=== PATIENT | female | born 1945 | race Caucasian/White ===

== ENCOUNTER 2018-03-10 16:40 | Inpatient (IN) | payer MEDICARE, MEDICAID ==
[2018-03-10] MEDS ORDERED: Diatrizoate Meglumine/Diatri 30 mL Sol ONE (16:55)
[2018-03-10 17:22] LABS: % BASOPHILS 0.7 % (0.0-2.0); % LYMPHOCYTES 8.7 % (20.0-50.0); % MONOCYTES 9.6 % (2.0-10.0); BASOPHILE ABSOLUTE 0.1 Th/cumm (0-0.2); EOSINOPHILE ABSOLUTE 0.4 Th/cmm (0.1-0.4); HEMATOCRIT 32.1 % (41.0-60); HEMOGLOBIN 10.5 gm/dL (12-16); LYMPHOCYTE ABSOLUTE 0.9 Th/cmm (1.5-3.0); MEAN CELL VOLUME 95.3 fl (81-100); MEAN CORPUSCULAR HEMOGLOBIN 31.3 pg (27.0-31.0); MEAN CORPUSCULAR HGB CONC 32.8 pg (28.0-36.0); MEAN PLATELET VOLUME 8.4 fl; PLATELET COUNT 252 Th/cmm (150-400); RED BLOOD COUNT 3.37 Mil/cmm (3.80-5.20); RED CELL DISTRIBUTION WIDTH 17.7 % (11.5-20.0); WHITE BLOOD COUNT 10.4 Th/cmm (4.8-10.8)
--- NOTE | 2018-03-10 17:24 | ED Physician Chart ---
ED Chief Complaint/HPI - Patient Information Date Seen:: 03/10/18 Time Seen:: 17:00 Chief Complaint:: FEVER History of Present Illness:: THIS IS A 72 YO DOWNS CHRONICALLY ILL SENT FROM THE [facility] BECAUSE OF FEVER AND G-TUBE DISPLACEMENT. SHE HAS CHRONIC RESPIRATORY FAILURE AND DYSPHAGIA. SHE ALSO HAS HAD MULTIPLE BOUTS OF DVT AND HAS OSTEOPOROSIS. Allergies:: Allergies Allergy/AdvReac Type Severity Reaction Status Date / Time piperacillin [From Zosyn] Allergy Verified 03/10/18 16:59 tazobactam [From Zosyn] Allergy Verified 03/10/18 16:59 Vitals:: Vital Signs - 8 hr 03/10/18 03/10/18 16:50 16:59 Temp 101.2 F HR 99 105 RR 18 BP 131/62 O2 Sat % 100 100 Historian:: Medical Records Review:: Nurse's Note Reviewed, Old Chart Reviewed, Transfer documents Reviewed ED Review of Systems - Review of Systems General/Constitutional: Other (THIS PATIENT IS UNABLE TO GIVE A REVIEW OF SYSTEMS.) Skin: No skin lesions, No rash, No bruising Head: No headache, No light-headedness Eyes: No loss of vision, No pain, No diplopia ENT: No earache, No nasal drainage, No sore throat, No tinnitus Neck: No neck pain, No swelling, No thyromegaly, No stiffness, No mass noted Cardio Vascular: No chest pain, No palpitations, No PND, No orthopnea, No edema Pulmonary: No SOB, No cough, No sputum, No wheezing GI: No nausea, No vomiting, No diarrhea, No pain, No melena, No hematochezia, No constipation, No hematemesis G/U: No dysuria, No frequency, No hematuria Musculoskeletal: No bone or joint pain, No back pain, No muscle pain Endocrine: No polyuria, No polydipsia Psychiatric: No prior psych history, No depression, No anxiety, No suicidal ideation Hematopoietic: No bruising, No lymphadenopathy Allergic/Immuno: No urticaria, No angioedema Neurological: No syncope, No focal symptoms, No weakness, No paresthesia, No headache, No seizure, No dizziness, No confusion, No vertigo ED Past Medical History - Past Medical History Obtainable: Yes Past Medical History: DM, DVT/PE, Dementia, Other (DOWNS SYNDROME. RESPIRATORY FAILURE) Family History: None Social History: Non Smoker, No Alcohol, No Drug Use, Care Facility Surgical History: PEG/GTube, other (TRACHEOSTOMY) Family Medical History - Family Member Mother History Unknown: Yes Ethnicity: Non- Living Status: Unknown ED Physical Exam - Physical Examination General/Constitutional: Awake, Well-developed, well-nourished, Alert, No distress, GCS 15, Non-toxic appearing, Ambulatory Other Gen/Cons comments:: THE PATIENT IS OBTUNDED AND NON-VERBAL WITH OBESITY. Head: Atraumatic Eyes: Lids, conjuctiva normal, PERRL, EOMI Skin: Nl inspection, No rash, No skin lesions, No ecchymosis, Well hydrated, No lymphadenopathy ENMT: External ears, nose nl, Nasal exam nl, Lips, teeth, gums nl Neck: Nontender, Full ROM w/o pain, No JVD, No nuchal rigidity, No bruit, No mass, No stridor Respiratory: Nl effort/Exclusion, Clear to Auscultation, No Wheeze/Rhonchi/Rales Other Respiratory comments:: TRACH IN PLACE AND FUNCTIONING NORMALLY Cardio Vascular: RRR, No murmur, gallop, rubs, NL S1 S2 GI: No tenderness/rebounding/guarding, No organomegaly, No hernia, Normal BS's, Nondistended, No mass/bruits, No McBurney tenderness Other GI comments:: THE GT- SITE HAS CELLULITIS AROUND IT. : No CVA tenderness Extremities: No tenderness or effusion, Full ROM, normal strength in all extremities, No edema, Normal digits & nails Other Extremities comments:: SEVERE MUSCLE WASTING OF ALL FOUR EXTREMITIES Neuro/Psych: Alert/oriented (THIS PATIENT IS NON-RESPONSIVE AND OBTUNDED), DTR' s symmetric, Normal sensory exam, Normal motor strength, Judgement/insight normal, Mood normal, Normal gait, No focal deficits Misc: Normal back, No paraspinal tenderness ED Assessment - Assessment General Assessment: FEVER ABDOMINAL CELLULITIS ED Septic Shock - . Is Septic Shock (SBP<90, OR Lactate>4 mmol\L) present?: No - <6hrs of presentation: Vital Signs: Vital Signs - 8 hr 03/10/18 03/10/18 16:50 16:59 Temp 101.2 F HR 99 105 RR 18 BP 131/62 O2 Sat % 100 100 ED Reassessment (Disposition) - Diagnosis Diagnosis:: fever cellulitis of the abdominal wall respiratory failure - Patient Disposition Discharge/Transfer:: Acute Care w/in this hosp Admitted to:: ICU Admitting Medical Physician:: David Aguilar Condition at Disposition:: Improved
[2018-03-10 17:40] LABS: ALBUMIN 3.7 gm/dL (3.7-5.3); ANION GAP 14.6 (7.0-16.0); BILIRUBIN,TOTAL 0.7 mg/dL (0.3-1.0); CALCIUM SERUM 10.2 mg/dL (8.6-10.3); CARBON DIOXIDE 28.2 mEq/L (21.0-31.0); CREATININE - SERUM 1.4 mg/dL (0.6-1.2); GFR AFRICAN-AMERICAN 47.8 ml/min (>90); GFR NON AFRICAN-AMERICAN 39.5 ml/min; POTASSIUM SERUM 4.8 mEq/L (3.5-5.1); TOTAL PROTEIN,SERUM 7.6 gm/dL (6.0-8.3)
[2018-03-10 21:07] VITALS: BP 130/44
[2018-03-10] MEDS: Albuterol/Ipratropium Neb 3 ML AERS HHN SCH (22:46)
[2018-03-10] MEDS ORDERED: Levofloxacin 500mg/100mL 500 MG/100 ML BAG IV ONE ×2 (23:00→23:01)
[2018-03-11] MEDS: INSULIN ASPART SLIDING SCALE 100 UNITS/ML UNIT SUBQ SCH ×4 (00:59→18:13)
[2018-03-11] MEDS: Albuterol/Ipratropium Neb 3 ML AERS HHN SCH ×6 (02:54→22:57)
[2018-03-11] MEDS ORDERED: Pneumococcal Vaccine 0.5 mL Vial IM ONE (04:44)
[2018-03-11] MEDS ORDERED: Influenza Vaccine (65 yr & older) 0.5 ml Syr IM ONE (04:44)
[2018-03-11 05:27] LABS: % BASOPHILS 0.7 % (0.0-2.0); % EOSINOPHILS 5.1 % (0.0-5.0); % LYMPHOCYTES 12.6 % (20.0-50.0); % MONOCYTES 10.9 % (2.0-10.0); % NEUTROPHILS 70.7 % (40.0-80.0); BASOPHILE ABSOLUTE 0.1 Th/cumm (0-0.2); EOSINOPHILE ABSOLUTE 0.4 Th/cmm (0.1-0.4); HEMATOCRIT 32.4 % (41.0-60); HEMOGLOBIN 10.7 gm/dL (12-16); LYMPHOCYTE ABSOLUTE 0.9 Th/cmm (1.5-3.0); MEAN CELL VOLUME 96.2 fl (81-100); MEAN CORPUSCULAR HEMOGLOBIN 31.8 pg (27.0-31.0); MEAN PLATELET VOLUME 8.9 fl; MONOCYTE ABSOLUTE 0.8 Th/cmm (0.3-1.0); NEUTROPHILE ABSOLUTE 5.1 Th/cmm (1.8-8.0); PLATELET COUNT 229 Th/cmm (150-400); RED BLOOD COUNT 3.37 Mil/cmm (3.80-5.20); RED CELL DISTRIBUTION WIDTH 18.1 % (11.5-20.0)
[2018-03-11 05:34] LABS: WHITE BLOOD COUNT 7.3 Th/cmm (4.8-10.8)
[2018-03-11 05:52] LABS: ANION GAP 15.6 (7.0-16.0); CALCIUM SERUM 9.8 mg/dL (8.6-10.3); CARBON DIOXIDE 25.1 mEq/L (21.0-31.0); CREATININE - SERUM 1.3 mg/dL (0.6-1.2); GFR AFRICAN-AMERICAN 52.1 ml/min (>90); POTASSIUM SERUM 4.7 mEq/L (3.5-5.1)
--- NOTE | 2018-03-11 09:39 | Diagnostic Imaging Report ---
Exam: Gastrostomy tube placement. Findings: Examination of the abdomen with injection of contrast material gastrostomy tube was performed. The study demonstrates the tip of the gastrostomy tube in the stomach with normal opacification of the stomach. Small amount of extravasation of contrast material is noted. IMPRESSION gastrostomy tube in the stomach, small amount of contrast extravasation. Clinical correlation recommended.
[2018-03-11] MEDS ORDERED: VTE Chemical Prophylaxis Screen/ICU transfer MC PRN (15:58)
[2018-03-11] MEDS ORDERED: Ipratropium Neb 0.5 mg/2.5 mL UD HHN PRN (19:07)
[2018-03-11] MEDS ORDERED: Albuterol Nebulizer 2.5mg/3mL HHN PRN (19:07)
[2018-03-11] MEDS ORDERED: Hydrocodone/APAP 5mg/325mg Tab GT PRN (19:07)
[2018-03-11] MEDS ORDERED: D5-0.45NS 1,000 ML IV SCH (19:15)
--- NOTE | 2018-03-11 19:27 | Consultation ---
DATE OF CONSULTATION: 03/11/2018 TIME OF CONSULTATION: 6:49 p.m. HISTORY OF PRESENT ILLNESS: The patient is a 72-year-old down syndrome patient, chronic respiratory failure with trach and dysphagia. She has a G-tube displacement. 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 The patient is overweight. The patient has multiple bouts of DVT, and osteoporosis. The patient is unable to give history. PHYSICAL EXAMINATION: GENERAL: 73 kilograms. BMI 36.5. She is afebrile. She is encephalopathic. She is down syndrome, trached on the vent. CHEST: Clear to auscultation bilaterally. CARDIOVASCULAR: Regular rate. ABDOMEN: Protuberant, but soft. 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 There is a mild cellulitis around the G-tube and the gastrocutaneous fistula site. NEUROVASCULAR AND EXTREMITIES: Otherwise normal. The patient has a Randall catheter. The patient was on tube feeds, but have been stopped. The patient have regular bowel movements. LABORATORY DATA: White blood cell count 7.3, today H and H is 10.7, 32.4, platelet count 229. Sodium is 135, BUN and creatinine 35 and 1.3. The patient had an upper GI series done, which showed gastrostomy tube in the stomach. Small amount of contrast extravasation. Clinical correlation recommended. MEDICATIONS: The patient is on albuterol, insulin, Levaquin, and vancomycin. IMPRESSION AND PLAN: A 72-year-old female with Down syndrome, respiratory failure, status post trach. The patient has a G-tube in the left upper quadrant with the balloon. Reportedly, in the stomach there is some extravasation of contrast from contrast study, probably from a gastrocutaneous tissue. There is some cellulitis of the abdominal wall, but no obvious abscess noted. Surgical consultation requested regarding a gastrocutaneous fistula and G-tube site cellulitis. Continue IV antibiotics for now. Hold tube feeds. We will obtain a CT abdomen and pelvis to further evaluate. The patient is probably a poor surgical candidate given her age and medical comorbidities including obesity, respiratory failure, anemia, renal insufficiency. Consideration for suture closure of the old G-tube site or gastrocutaneous fistula, consider EGD to evaluate for a possible gastrocutaneous fistula. [facility]# [id number]
[2018-03-11] MEDS: Levofloxacin 250 mg/50 mL Premix Bag IV SCH (20:58)
--- NOTE | 2018-03-11 22:17 | History & Physical ---
ADMIT DATE: 03/10/2018 This patient was seen by me yesterday. HISTORY OF PRESENT ILLNESS: The patient is a 72-year-old female patient. The patient is known to have history of Down syndrome, chronically ill and in senior care. The patient had a fever and came in for a G-tube replacement, found to have respiratory failure, dysphagia, sepsis and also known to have history of osteoporosis, was admitted. PAST MEDICAL HISTORY: Difficult to obtain history from the patient. The patient has history of diabetes, DVT, PE, dementia, Down syndrome, respiratory failure. PHYSICAL EXAMINATION: HEAD: Normal. ENT: Normal. LUNGS: Trach in place. CARDIOVASCULAR SYSTEM: S1, S2 heard. ABDOMEN: Soft. G-tube site cellulitis was found. CENTRAL NERVOUS SYSTEM: Decreased sensorium. DIAGNOSES: Gastric tube cellulitis, sepsis, fever, respiratory failure, status post trach, status post percutaneous endoscopic gastrostomy, history of deep vein thrombosis, history of pulmonary embolism in the past, dementia and Down syndrome. PLAN: The patient is being admitted. I will go ahead and call Pulmonary doctor as well as well as Dr. Cali Prabhakar as well as Dr. Ryan Prabhakar for ID consult and I will follow the patient. JOB# [id number]
--- NOTE | 2018-03-11 23:15 | Consultation ---
DATE OF CONSULTATION: 03/11/[address] Aguilar for this consultation. HISTORY OF PRESENT ILLNESS: This is a 72-year-old female with history of Down syndrome, chronic respiratory failure, ventilator dependent, G-tube feeding, presented with fever, G-tube is in place with possible cellulitis. The patient has a history of DVT, osteoporosis, and dysphagia. SOCIAL HISTORY: [facility] resident. REVIEW OF SYSTEMS: Unable to obtain because of the patient's condition. PHYSICAL EXAMINATION: GENERAL: The patient is arousable, not in any acute distress, not communicative. VITAL SIGNS: Temperature is 97.5, pulse 92, respirations 16, blood pressure 148/51, saturation is 100 percent. HEENT: Atraumatic, normocephalic. Pupils are reactive to light and accommodation. Ears, nose and throat normal. NECK: Supple. No JVD. CHEST: There are good breath sounds. Few rhonchi. HEART: Regular rate and rhythm. ABDOMEN: Soft. EXTREMITIES: No edema. LABORATORY DATA: WBC 7.3, hemoglobin 10.7, hematocrit 32.4, platelets 229. Sodium 135, potassium 4.7, BUN is 35, creatinine 1.3. IMPRESSION: This is a 72-year-old female with, 1. pneumonia, copious amount of secretions according to nursing staff. 2. History of deep venous thrombosis. not getting any anticoagulation at this time. PLAN: 1. Ventilator support. 2. Chest x-ray. 3. Sputum culture. 4. Nebulizer treatment. We will follow the patient with you. Thank you very much for this consultation. JOB# [id number] MTDD
[2018-03-12] MEDS ORDERED: Ipratropium Neb 0.5 mg/2.5 mL UD HHN SCH
[2018-03-12] MEDS: INSULIN ASPART SLIDING SCALE 100 UNITS/ML UNIT SUBQ SCH ×5 (00:25→23:58)
--- NOTE | 2018-03-12 01:04 | Consultation ---
DATE OF CONSULTATION: 03/11/2018 REQUESTING PHYSICIAN: Dr. Watts. REASON FOR CONSULTATION: G-tube displacement. HISTORY OF PRESENT ILLNESS: Thank you for asking me to see this patient in consultation. This is a 72-year-old female with history of Down syndrome, chronically ill and in the custodial. The patient had a fever and came in for G-tube replacement, but was found to have respiratory failure, dysphagia, and sepsis. She is currently in the ICU, appearing very ill. She has a G-tube that looks infected at the site and there is also an adjacent what looks like either a gastrocutaneous fistula that is leaking tube feed content. At the time of my evaluation, the patient was still on tube feeds. We promptly held this and surgical consultation was also requested. PAST MEDICAL HISTORY: Difficult to obtain from the patient; however, has a history of diabetes, DVT, PE, dementia, Down syndrome, respiratory failure. SOCIAL HISTORY: Unobtainable. FAMILY HISTORY: Noncontributory for GI disease. REVIEW OF SYSTEMS: Unobtainable. PHYSICAL EXAMINATION: VITAL SIGNS: Temperature 97.5, pulse of 91, respiratory rate of 18, blood pressure is 122/36. GENERAL: She is acutely ill appearing. HEENT: Normocephalic, atraumatic. PERRL positive. LUNGS: Rhonchorous bilaterally. ABDOMEN: Distended. There is an intact G-tube with some surrounding cellulitis and a leaking gastrocutaneous fistula adjacent to this area. EXTREMITIES: Show 2+ pitting edema. PSYCHIATRIC: Unable to assess. NEUROLOGIC: Unable to assess. LABORATORY DATA: White count of 7.3, hemoglobin of 7.7. Sodium 135, glucose of 154. Sodium 135, potassium 4.7, BUN is 35, creatinine is 1.3. IMAGING STUDIES: She had an upper GI study series done, which showed gastrostomy tube in the stomach. Small amount of contrast extravasation likely from gastrocutaneous fistula. IMPRESSION: A 72-year-old female with history of G-tube dependency, Down syndrome, respiratory failure, who presents with fevers and sepsis. 1. Abdominal wall cellulitis. 2. Gastrocutaneous fistula with leaking of fluid. 3. Concern for ileus. 4. Down syndrome. There is surrounding abdominal cellulitis around the G-tube as well as a spontaneous versus slowly forming gastrocutaneous fistula adjacent to this G-tube site. Concern is also the patient has an ileus or bowel obstruction distal to the secretive prompted opening of this fistula and/or the cellulitis with the way her abdomen exam is. RECOMMENDATIONS: 1. Obtain CT scan. 2. Surgery consult. 3. Hold tube feeds right now indefinitely and likely place the patient on TPN until the G-tube site is healed and then can possibly replace the G-tube through the already formed tract. If the patient's cellulitis does not improve; however, this may need to be replaced either endoscopically or other manner or surgically. 4. Followup on surgical recommendation, may require fistulectomy or suture repair depending on surgical versus conservative management and watching this close spontaneously. We will continue to follow alongside with you. Thank you for this consultation. JOB# [id number]
[2018-03-12] MEDS: Albuterol/Ipratropium Neb 3 ML AERS HHN SCH ×5 (02:35→22:49)
[2018-03-12 08:07] LABS: % BASOPHILS 0.9 % (0.0-2.0); % EOSINOPHILS 4.8 % (0.0-5.0); % LYMPHOCYTES 17.2 % (20.0-50.0); % MONOCYTES 13.4 % (2.0-10.0); % NEUTROPHILS 63.7 % (40.0-80.0); EOSINOPHILE ABSOLUTE 0.2 Th/cmm (0.1-0.4); HEMATOCRIT 29.9 % (41.0-60); HEMOGLOBIN 9.7 gm/dL (12-16); LYMPHOCYTE ABSOLUTE 0.9 Th/cmm (1.5-3.0); MEAN CELL VOLUME 96.6 fl (81-100); MEAN CORPUSCULAR HEMOGLOBIN 31.4 pg (27.0-31.0); MEAN CORPUSCULAR HGB CONC 32.5 pg (28.0-36.0); MEAN PLATELET VOLUME 7.8 fl; MONOCYTE ABSOLUTE 0.7 Th/cmm (0.3-1.0); NEUTROPHILE ABSOLUTE 3.4 Th/cmm (1.8-8.0); PLATELET COUNT 259 Th/cmm (150-400); RED CELL DISTRIBUTION WIDTH 17.9 % (11.5-20.0); WHITE BLOOD COUNT 5.2 Th/cmm (4.8-10.8)
[2018-03-12 08:21] LABS: ANION GAP 13.1 (7.0-16.0); CALCIUM SERUM 9.4 mg/dL (8.6-10.3); CARBON DIOXIDE 27.8 mEq/L (21.0-31.0); CREATININE - SERUM 1.2 mg/dL (0.6-1.2); GFR AFRICAN-AMERICAN 57.1 ml/min (>90); GFR NON AFRICAN-AMERICAN 47.2 ml/min; POTASSIUM SERUM 3.9 mEq/L (3.5-5.1)
[2018-03-12] MEDS ORDERED: Albuterol Nebulizer 2.5mg/3mL HHN PRN ×2 (08:35→08:45)
--- NOTE | 2018-03-12 08:49 | Diagnostic Imaging Report ---
CT abdomen without IV contrast History: Cellulitis of abdominal wall Comparison: Upper GI exam on 03/10/2019 Technique: Axial images were obtained from the lung bases to the bowel iliac crest without IV contrast. Reconstructions were made. Total DLP 458, CTD I 17.5 Findings: Bibasal infiltrates and atelectatic changes are noted. Assessment of the solid organs is limited due to lack of IV contrast. There is mild hepatomegaly. No focal lesions. Gallstones are noted. No focal splenic lesions. Pancreatic gland atrophy is noted. No focal adrenal lesions. An IVC filter is noted L2/L3 level. There is diffuse subcutaneous edema. There is also inflammatory changes and edema seen along the left anterior abdominal wall along the G-tube tract site. No discrete fluid collection on this noncontrast exam. There are advanced compression fractures of T12 and L1 with 4 mm retropulsion at T12 and 5 mm retropulsion at L1 causing spinal canal narrowing. There is a vertical fracture line through L1. There is mild compression fracture of T11 with no retropulsion. Osteopenia is noted. IMPRESSION: G-tube in the stomach. Edema is seen with mild inflammatory changes along the subcutaneous tissues along the G-tube tract site. No drainable fluid collection identified. Additional generalized subcutaneous abdominal wall edema which may be due to cellulitis. Gallstones IVC filter. Bibasal infiltrate/pneumonia. There is advanced compression fracture of T12 with 4 mm retropulsion. There is advanced compression fracture of L1 with 5 mm retropulsion. A vertical fracture line is also seen through L1. There is associated spinal canal narrowing. Additional mild compression fracture of T11 without retropulsion. Mild hepatomegaly.
[2018-03-12] MEDS: Lactobacillus Rhamnosus GG 15 Billion CFU CAP.SPRINK GT SCH (08:55)
[2018-03-12] MEDS: Levetiracetam 500 mg/5mL 5mL UDSyr *for ORAL USE ONLY GT SCH ×2 (08:55→21:39)
[2018-03-12] MEDS ORDERED: Pantoprazole 40 mg/Packet GT SCH (09:00)
[2018-03-12] MEDS: Docusate Sodium 100 mg/10 mL UD GT SCH ×2 (09:00→17:00)
[2018-03-12] MEDS ORDERED: Levothyroxine 0.112 Mg Tab GT SCH (09:00)
[2018-03-12] MEDS: Budesonide 0.5 Mg/2 mL Ud HHN SCH ×2 (09:14→18:40)
--- NOTE | 2018-03-12 10:05 | Diagnostic Imaging Report ---
Portable chest x-ray HISTORY: Shortness of breath The heart appears somewhat enlarged. There are hazy diffuse bilateral pulmonary infiltrates. Changes may be associated pulmonary edema related to congestive heart failure. Clinical correlation is needed. Tracheostomy noted. IMPRESSION: 1. Cardiomegaly along with hazy bilateral diffuse infiltrates. Findings may be associated with pulmonary edema and congestive heart failure. Clinical correlation is needed.
[2018-03-12] MEDS: Potassium Chloride 10 mEq ER Tab PO SCH (11:00)
[2018-03-12] MEDS: INSULIN HUMAN ISOPHANE (NPH) 100 UNITS/ML SUBQ SCH ×2 (11:27→16:53)
[2018-03-12] MEDS: Ferrous Sulfate 300 MG/5 ML UDC GT SCH ×2 (13:00→21:39)
[2018-03-12] MEDS ORDERED: Albuterol Nebulizer 2.5mg/3mL HHN SCH ×2 (13:00)
--- NOTE | 2018-03-12 16:24 | Consultation ---
Consult Note - Consult Note Service Date: 03/12/18 Referring Physician: David Aguilar Consult Note: PHYSICIAN Consultation Note: Date of Admission: 03/10/18 Purpose of Consultation: sepsis. abdominal wall cellulitis. Chief Complaint: Patient OTTONIEL HYLTON was admitted to location Intensive Care Unit with FEVER, CELLULITIS OF ABDOMINAL WALL. History of Present Illness: 72 y/F with pmh of VDRF, mental retardation, short stature, dysphagia, G tube placement admitted for malfunctioning G tube with leak. It was associated with erythema of surrounding tissues. ID consult was called for antibiotic management. Antibiotic soto, she was started on Vanco IV and levaquin. Past Medical History: DM, DVT/PE, Dementia, Other (DOWNS SYNDROME. RESPIRATORY FAILURE), Mental retardation. Diagnoses SEPSIS, UNSPECIFIED ORGANISM (03/10/18) RESPIRATORY FAILURE, UNSP, UNSP W HYPOXIA OR HYPERCAPNIA (03/10/18) FISTULA OF STOMACH AND DUODENUM (03/10/18) GASTROSTOMY MALFUNCTION (03/10/18) CELLULITIS OF ABDOMINAL WALL (03/10/18) WEAKNESS (03/10/18) Allergies Allergy/AdvReac Type Severity Reaction Status Date / Time piperacillin [From Zosyn] Allergy Verified 03/10/18 16:59 tazobactam [From Zosyn] Allergy Verified 03/10/18 16:59 Vital Signs Temp 98.3 F 03/12/18 12:00 Pulse 86 03/12/18 15:05 Resp 14 03/12/18 14:00 BP 132/31 03/12/18 14:00 Pulse Ox 100 03/12/18 15:05 Intake & Output 03/11/18 03/12/18 03/12/18 18:59 06:59 18:59 Intake Total 460 250 Output Total 1100 Balance 460 -1100 250 Weight (lbs) 73.799 kg 71.395 kg Intake: Intake, IV Amount 250 250 Vancomycin HCl 0.75 gm In 250 250 Sodium Chloride 0.9% 250 ml @ 165 mls/hr IV Q24H [facility] Rx#:[id number] Oral 0 Tube Feeding 180 Other 30 Output: Urine 1100 Other: # Bowel Movements 0 Stool Characteristics Soft Formed Brown Green Weight Source Bedscale Bedscale Laboratory Results - last 24 hr 03/11/18 03/12/18 03/12/18 17:25 00:25 06:42 WBC RBC Hgb Hct MCV MCH MCHC Differential RDW Plt Count MPV Neutrophils % Lymphocytes % Monocytes % Eosinophils % Basophils % Sodium Potassium Chloride Carbon Dioxide Anion Gap BUN Creatinine Est GFR ( Amer) Est GFR (Non-Af Amer) BUN/Creatinine Ratio Glucose POC Glucose 247 H 252 H 225 H Calcium Vancomycin Trough 03/12/18 03/12/18 03/12/18 07:50 07:50 07:50 WBC 5.2 RBC 3.10 L Hgb 9.7 L Hct 29.9 L MCV 96.6 MCH 31.4 H MCHC Differential 32.5 RDW 17.9 Plt Count 259 MPV 7.8 Neutrophils % 63.7 Lymphocytes % 17.2 L Monocytes % 13.4 H Eosinophils % 4.8 Basophils % 0.9 Sodium 139 Potassium 3.9 Chloride 102 Carbon Dioxide 27.8 Anion Gap 13.1 BUN 25 Creatinine 1.2 Est GFR ( Amer) 57.1 Est GFR (Non-Af Amer) 47.2 BUN/Creatinine Ratio 20.8 Glucose 232 H POC Glucose Calcium 9.4 Vancomycin Trough 20.4 H 03/12/18 11:56 WBC RBC Hgb Hct MCV MCH MCHC Differential RDW Plt Count MPV Neutrophils % Lymphocytes % Monocytes % Eosinophils % Basophils % Sodium Potassium Chloride Carbon Dioxide Anion Gap BUN Creatinine Est GFR ( Amer) Est GFR (Non-Af Amer) BUN/Creatinine Ratio Glucose POC Glucose 227 H Calcium Vancomycin Trough Home Medication Medication Instructions Recorded Type Acetaminophen [Tylenol 650 mg GT Q6H PRN 02/09/17 History 650mg/20.3mL Suspension] Ascorbic Acid 500 mg GT DAILY 02/09/17 History Docusate Sodium 100 mg GT Q12H 02/09/17 History Epoetin Teddy [Procrit] 10,000 unit IJ MWF 02/09/17 History Ferrous Sulfate [Ferosul] 330 mg GT Q8HR 02/09/17 History Hydrocodone/APAP 5mg/325mg [Brunswick 1 tab GT Q6H PRN 02/09/17 History 5mg/325mg] Lactobacillus Acidophilus 2 cap GT Q12H 02/09/17 History [Acidophilus Lactobacillus] Levetiracetam [Spritam] 250 mg GT Q12H 02/09/17 History Levothyroxine [Synthroid] 175 mcg GT DAILY 02/09/17 History Lorazepam [Ativan] 0.5 mg GT Q6HR PRN 02/09/17 History Potassium Chloride 10 meq GT DAILY 02/09/17 History Albuterol Nebulizer 2.5mg/3mL 3 mg IH PRN PRN 03/10/18 History [Albuterol Neb UD*] Albuterol Nebulizer 2.5mg/3mL 3 mg IH Q6HR 03/10/18 History [Albuterol Neb UD*] Budesonide [Pulmicort] 0.5 mg IH BID 03/10/18 History Chlorhexidine Gluconate 0.12% 15 ml PO QSHIFT 03/10/18 History [Peridex] Furosemide [Lasix] 20 mg GT DAILY 03/10/18 History Insulin Glulisine [Apidra] 0 unit SQ Q6H 03/10/18 History Insulin NPH Human Isophane 22 unit SQ BID 03/10/18 History [Humulin N] Ipratropium Neb 0.5 mg/2.5 mL 0.5 mg HHN PRN PRN 03/10/18 History [Atrovent Neb 0.5MG/2.5ML] Ipratropium Neb 0.5 mg/2.5 mL 0.5 mg HHN Q6HR 03/10/18 History [Atrovent Neb 0.5MG/2.5ML] Lansoprazole [Prevacid] 30 mg GT DAILY 03/10/18 History Current Medications Generic Name Dose Route Start Last Admin Trade Name Freq PRN Reason Stop Dose Admin Acetaminophen 650 mg 03/11/18 19:07 Tylenol 650mg/20.3ml Suspension GT 05/10/18 19:06 Q6H PRN Pain or Fever >101 Acetaminophen/Hydrocodone Bitart 1 tab 03/11/18 19:07 [place] 5mg/325mg GT 05/10/18 19:06 Q6H PRN Pain (Moderate) Albuterol Sulfate 2.5 mg 03/12/18 08:45 Albuterol 2.5mg/3ml Neb Ud HHN 05/11/18 08:34 PRN PRN WHEEZING Albuterol/Ipratropium 3 ml 03/10/18 23:00 03/12/18 15:05 Duoneb Neb HHN 05/09/18 22:59 3 ml Q4HRT [facility] Administration Protocol Ascorbic Acid 500 mg 03/12/18 09:00 03/12/18 08:54 Vitamin C GT 05/11/18 08:59 Not Given DAILY [facility] Budesonide 0.5 mg 03/12/18 09:00 03/12/18 09:14 Pulmicort HHN 05/11/18 08:59 0.5 mg BID [facility] Administration Docusate Sodium 100 mg 03/12/18 08:00 03/12/18 09:00 Colace GT 05/11/18 07:59 Not Given Q12HR@0600,1800 [facility] Epoetin Teddy 10,000 units 03/12/18 16:00 Epogen SUBQ 05/11/18 15:59 MWF@1600 [facility] Ferrous Sulfate 300 mg 03/12/18 13:00 03/12/18 13:00 Iron GT 05/11/18 12:59 Not Given Q8HR [facility] Furosemide 20 mg 03/12/18 09:00 03/12/18 08:55 Lasix GT 05/11/18 08:59 Not Given DAILY [facility] Furosemide 40 mg 03/12/18 17:00 Lasix IVP 03/14/18 17:00 DAILY [facility] Heparin Sodium (Porcine) 5,000 units 03/11/18 21:00 03/12/18 09:04 Heparin SUBQ 05/10/18 20:59 5,000 units Q12HR [facility] Administration Levofloxacin 250 mg in 50 mls @ 50 mls/hr 03/11/18 21:00 03/11/18 20:58 Levaquin Pb IV 05/10/18 20:59 50 mls/hr DAILY@2100 [facility] Administration Vancomycin HCl 0.75 gm/ Sodium 250 mls @ 165 mls/hr 03/11/18 09:00 03/12/18 10:30 Chloride IV 05/10/18 08:59 Infused Q24H [facility] Infusion Dextrose/Sodium Chloride 1,000 mls @ 50 mls/hr 03/12/18 13:45 D5-0.45ns IV 05/11/18 14:00 .Q20H [facility] Insulin Aspart 0 units 03/11/18 00:00 03/12/18 12:40 Novolog Insulin Sliding Scale SUBQ 05/10/18 00:00 4 units Q6HR [facility] Administration Protocol Insulin Human NPH 22 units 03/12/18 09:00 03/12/18 11:27 Novolin N SUBQ 05/11/18 08:59 Not Given BID [facility] Protocol Ipratropium Benson 0.5 mg 03/11/18 19:07 03/11/18 20:47 Atrovent Neb 0.5mg/2.5ml HHN 05/10/18 19:06 0.5 mg PRN PRN Administration Wheezing Lactobacillus Rhamnosus 1 each 03/12/18 09:00 03/12/18 08:55 Culturelle 15b GT 05/11/18 08:59 Not Given DAILY [facility] Levetiracetam 250 mg 03/12/18 09:00 03/12/18 08:55 Keppra GT 05/11/18 08:59 Not Given Q12H [facility] Levothyroxine Sodium 0.075 mg/ 0.175 mg 03/12/18 09:00 03/12/18 08:56 Levothyroxine Sodium 0.1 mg PO 05/11/18 08:59 Not Given DAILY [facility] Lorazepam 0.5 mg 03/11/18 19:07 Ativan GT 05/10/18 19:06 Q6HR PRN Anxiety Protocol Miscellaneous 1 ea 03/10/18 21:53 Vancomycin Iv Per Pharmacy 05/09/18 21:52 PRN PRN PROTOCOL Miscellaneous 1 ea 03/11/18 15:58 Vte Chemical Prophylaxis Screen/Icu Transfer 05/10/18 15:57 PRN PRN PROTOCOL Pantoprazole Sodium 40 mg 03/12/18 09:00 03/12/18 08:54 Protonix IVP 05/11/18 08:59 40 mg DAILY [facility] Administration Pantoprazole Sodium 40 mg 03/12/18 09:00 03/12/18 08:56 Protonix GT 05/11/18 08:59 Not Given DAILY [facility] Potassium Chloride 10 meq 03/12/18 11:00 03/12/18 11:00 Klor-Con PO 05/11/18 10:59 Not Given DAILY [facility] Review of Systems: A 12 point ROS was reviewed with the pertinent positive and negatives noted in the HPI. pateint is unable to give any history. Social History Smoking Status Never smoker Drug Use No Alcohol Use No Family Medical History Unknown Physical Exam: General: On the ventilator alert and awake, s/p trach. short stature. HEENT: HEAD: NC NT. ORal cavity moist, pink tongue. Eyes: pallor present. Neck: trach site is clear/ Cardio: S1 and S2 WNL> Respiratory: Vesicular breath sounds Abdominal: Soft NT ND. Gtube site is leaking and there is surropunding erythema. Genital/Urinary: Extremities: NCCE Neurological: Alert and awake. Assessment: 1. Abdominal wall cellulitis and G tube malfunction 2. Down's Syndrome. 3. VDRF. 4. Mental retardation. Plan: Continue vancO and levaquin, wound care. GI consult on the case. Dr Jeff Magallon for involving me in taking care of this patient. Signed, Ryan Prabhakar M.D. 03/12/[id number]
[2018-03-12 17:21] LABS: pH 7.45 (7.35-7.45)
[2018-03-12 17:22] LABS: ALLEN TEST Positive
[2018-03-12] MEDS: Epoetin Alfa 20000 Units/mL Vial SUBQ SCH (17:33)
[2018-03-12] MEDS: D5-0.45NS 1,000 ML IV SCH (17:41)
--- NOTE | 2018-03-12 18:17 | GI Progress Note ---
Subjective - Review of Systems Service Date: 03/12/18 Events since last encounter: No events; appreciate surgical input Objective - Results Result Diagrams: 03/12/18 07:50 03/12/18 07:50 Recent Labs: Laboratory Last Values WBC 5.2 Th/cmm (4.8-10.8) 03/12/18 07:50 RBC 3.10 Mil/cmm (3.80-5.20) L 03/12/18 07:50 Hgb 9.7 gm/dL (12-16) L 03/12/18 07:50 Hct 29.9 % (41.0-60) L 03/12/18 07:50 MCV 96.6 fl (81-100) 03/12/18 07:50 MCH 31.4 pg (27.0-31.0) H 03/12/18 07:50 MCHC Differential 32.5 pg (28.0-36.0) 03/12/18 07:50 RDW 17.9 % (11.5-20.0) 03/12/18 07:50 Plt Count 259 Th/cmm (150-400) 03/12/18 07:50 MPV 7.8 fl 03/12/18 07:50 Neutrophils % 63.7 % (40.0-80.0) 03/12/18 07:50 Lymphocytes % 17.2 % (20.0-50.0) L 03/12/18 07:50 Monocytes % 13.4 % (2.0-10.0) H 03/12/18 07:50 Eosinophils % 4.8 % (0.0-5.0) 03/12/18 07:50 Basophils % 0.9 % (0.0-2.0) 03/12/18 07:50 Specimen Source Arterial 03/12/18 17:02 Sample Site Right Radial 03/12/18 17:02 pH 7.45 (7.35-7.45) 03/12/18 17:02 pCO2 46.0 mmHg (35.0-45.0) H 03/12/18 17:02 pO2 483.0 mmHg (80.0-100.0) H 03/12/18 17:02 HCO3 30.5 mEq/L (20.0-26.0) H 03/12/18 17:02 Base Excess 7.0 mEq/L (-3.0-3.0) H 03/12/18 17:02 O2 Saturation 100.0 % (92.0-100.0) 03/12/18 17:02 Cristofer Test Positive 03/12/18 17:02 Vent Rate 14 03/12/18 17:02 Inspired O2 100 03/12/18 17:02 Tidal Volume 400 03/12/18 17:02 PEEP 7 03/12/18 17:02 Pressure (ins/psv/peep) NA 03/12/18 17:02 Critical Value SH 03/12/18 17:02 Sodium 139 mEq/L (136-145) 03/12/18 07:50 Potassium 3.9 mEq/L (3.5-5.1) 03/12/18 07:50 Chloride 102 mEq/L (98-107) 03/12/18 07:50 Carbon Dioxide 27.8 mEq/L (21.0-31.0) 03/12/18 07:50 Anion Gap 13.1 (7.0-16.0) 03/12/18 07:50 BUN 25 mg/dL (7-25) 03/12/18 07:50 Creatinine 1.2 mg/dL (0.6-1.2) 03/12/18 07:50 Est GFR ( Amer) 57.1 ml/min (>90) 03/12/18 07:50 Est GFR (Non-Af Amer) 47.2 ml/min 03/12/18 07:50 BUN/Creatinine Ratio 20.8 03/12/18 07:50 Glucose 232 mg/dL (70-105) H 03/12/18 07:50 POC Glucose 170 MG/DL (70 - 105) H 03/12/18 16:36 Whole Bld Lactic Acid 1.36 mmol/L (0.60-1.99) 03/10/18 17:15 Calcium 9.4 mg/dL (8.6-10.3) 03/12/18 07:50 Total Bilirubin 0.7 mg/dL (0.3-1.0) 03/10/18 17:15 AST 19 U/L (13-39) 03/10/18 17:15 ALT 11 U/L (7-52) 03/10/18 17:15 Alkaline Phosphatase 105 U/L (34-104) H 03/10/18 17:15 Total Protein 7.6 gm/dL (6.0-8.3) 03/10/18 17:15 Albumin 3.7 gm/dL (3.7-5.3) 03/10/18 17:15 Globulin 3.9 gm/dL 03/10/18 17:15 Albumin/Globulin Ratio 1.0 (1.0-1.8) 03/10/18 17:15 Vancomycin Trough 20.4 ug/mL (5-10) H 03/12/18 07:50 - Physical Exam Vitals and I&O: Vital Signs Temp 98.3 F 03/12/18 12:00 Pulse 76 03/12/18 17:26 Resp 14 03/12/18 14:00 BP 106/45 03/12/18 17:41 Pulse Ox 100 03/12/18 17:26 Intake & Output 03/11/18 03/12/18 03/12/18 18:59 06:59 18:59 Intake Total 460 250 Output Total 1100 Balance 460 -1100 250 Weight (lbs) 73.799 kg 71.395 kg Intake: Intake, IV Amount 250 250 Vancomycin HCl 0.75 gm In 250 250 Sodium Chloride 0.9% 250 ml @ 165 mls/hr IV Q24H [facility] Rx#:[id number] Oral 0 Tube Feeding 180 Other 30 Output: Urine 1100 Other: # Bowel Movements 0 Stool Characteristics Soft Formed Brown Green Weight Source Bedscale Bedscale Active Medications: Current Medications Acetaminophen (Tylenol 650mg/20.3ml Suspension) 650 mg GT Q6H PRN PRN Reason: Pain or Fever >101 Stop: 05/10/18 19:06 Acetaminophen/Hydrocodone Bitart (Severy 5mg/325mg) 1 tab GT Q6H PRN PRN Reason: Pain (Moderate) Stop: 05/10/18 19:06 Albuterol Sulfate (Albuterol 2.5mg/3ml Neb Ud) 2.5 mg HHN PRN PRN PRN Reason: WHEEZING Stop: 05/11/18 08:34 Albuterol/Ipratropium (Duoneb Neb) 3 ml HHN Q4HRT [facility]; Protocol Stop: 05/09/18 22:59 Last Admin: 03/12/18 15:05 Dose: 3 ml Ascorbic Acid (Vitamin C) 500 mg GT DAILY [facility] Stop: 05/11/18 08:59 Last Admin: 03/12/18 08:54 Dose: Not Given Budesonide (Pulmicort) 0.5 mg HHN BID [facility] Stop: 05/11/18 08:59 Last Admin: 03/12/18 09:14 Dose: 0.5 mg Docusate Sodium (Colace) 100 mg GT Q12HR@0600,1800 [facility] Stop: 05/11/18 07:59 Last Admin: 03/12/18 09:00 Dose: Not Given Epoetin Teddy (Epogen) 10,000 units SUBQ MWF@1600 [facility] Stop: 05/11/18 15:59 Last Admin: 03/12/18 17:33 Dose: 10,000 units Ferrous Sulfate (Iron) 300 mg GT Q8HR [facility] Stop: 05/11/18 12:59 Last Admin: 03/12/18 13:00 Dose: Not Given Furosemide (Lasix) 20 mg GT DAILY [facility] Stop: 05/11/18 08:59 Last Admin: 03/12/18 08:55 Dose: Not Given Furosemide (Lasix) 40 mg IVP DAILY [facility] Stop: 03/14/18 17:00 Last Admin: 03/12/18 17:41 Dose: 40 mg Heparin Sodium (Porcine) (Heparin) 5,000 units SUBQ Q12HR [facility] Stop: 05/10/18 20:59 Last Admin: 03/12/18 09:04 Dose: 5,000 units Levofloxacin (Levaquin Pb) 250 mg in 50 mls @ 50 mls/hr IV DAILY@2100 [facility] Stop: 05/10/18 20:59 Last Admin: 03/11/18 20:58 Dose: 50 mls/hr Vancomycin HCl 0.75 gm/ Sodium (Chloride) 250 mls @ 165 mls/hr IV Q24H [facility] Stop: 05/10/18 08:59 Last Infusion: 03/12/18 10:30 Dose: Infused Dextrose/Sodium Chloride (D5-0.45ns) 1,000 mls @ 50 mls/hr IV .Q20H [facility] Stop: 05/11/18 14:00 Last Admin: 03/12/18 17:41 Dose: 50 mls/hr Insulin Aspart (Novolog Insulin Sliding Scale) 0 units SUBQ Q6HR [facility]; Protocol Stop: 05/10/18 00:00 Last Admin: 03/12/18 12:40 Dose: 4 units Insulin Human NPH (Novolin N) 22 units SUBQ BID [facility]; Protocol Stop: 05/11/18 08:59 Last Admin: 03/12/18 16:53 Dose: Not Given Ipratropium Waddy (Atrovent Neb 0.5mg/2.5ml) 0.5 mg HHN PRN PRN PRN Reason: Wheezing Stop: 05/10/18 19:06 Last Admin: 03/11/18 20:47 Dose: 0.5 mg Lactobacillus Rhamnosus (Culturelle 15b) 1 each GT DAILY [facility] Stop: 05/11/18 08:59 Last Admin: 03/12/18 08:55 Dose: Not Given Levetiracetam (Keppra) 250 mg GT Q12H [facility] Stop: 05/11/18 08:59 Last Admin: 03/12/18 08:55 Dose: Not Given Levothyroxine Sodium 0.075 mg/ (Levothyroxine Sodium 0.1 mg) 0.175 mg PO DAILY [facility] Stop: 05/11/18 08:59 Last Admin: 03/12/18 08:56 Dose: Not Given Lorazepam (Ativan) 0.5 mg GT Q6HR PRN; Protocol PRN Reason: Anxiety Stop: 05/10/18 19:06 Miscellaneous (Vancomycin Iv Per Pharmacy) 1 [facility] PRN PRN PRN Reason: PROTOCOL Stop: 05/09/18 21:52 Miscellaneous (Vte Chemical Prophylaxis Screen/Icu Transfer) 1 [facility] PRN PRN PRN Reason: PROTOCOL Stop: 05/10/18 15:57 Pantoprazole Sodium (Protonix) 40 mg IVP DAILY [facility] Stop: 05/11/18 08:59 Last Admin: 03/12/18 08:54 Dose: 40 mg Pantoprazole Sodium (Protonix) 40 mg GT DAILY [facility] Stop: 05/11/18 08:59 Last Admin: 03/12/18 08:56 Dose: Not Given Potassium Chloride (Klor-Con) 10 meq PO DAILY [facility] Stop: 05/11/18 10:59 Last Admin: 03/12/18 11:00 Dose: Not Given HEENT: Atraumatic, PERRLA, EOMI Neck: Supple Cardiovascular: Regular rate, Normal S1 Abdomen: Bowel sounds, Soft - Procedures Procedures: Procedures Procedure Code Date EXCISION OF STOMACH, ENDO, DIAGN [id number] 02/09/17 INSERTION OF INFUSION DEV INTO SUP VENA CAVA, PERC APPROACH [id number] 02/09/17 RESPIRATORY VENTILATION, 24-96 CONSECUTIVE HOURS [id number] 03/10/18 TRANSFUSE NONAUT RED BLOOD CELLS IN PERIPH VEIN, PERC 09100A8 02/09/17 Assessment/Plan - Assessment Assessment: 1. G tube site cellulitis 2. Gastrocutaneous fistula -Recommend bowel rest; TPN, alow site to heal and then likely change G tube -f/u surgery recs
[2018-03-12] MEDS: Levofloxacin 250 mg/50 mL Premix Bag IV SCH (21:41)
[2018-03-13] MEDS: Albuterol/Ipratropium Neb 3 ML AERS HHN SCH ×6 (03:19→23:27)
[2018-03-13] MEDS: Ferrous Sulfate 300 MG/5 ML UDC GT SCH ×3 (05:29→21:14)
[2018-03-13] MEDS: Docusate Sodium 100 mg/10 mL UD GT SCH ×2 (05:29→14:00)
[2018-03-13] MEDS: INSULIN ASPART SLIDING SCALE 100 UNITS/ML UNIT SUBQ SCH ×4 (05:49→23:46)
[2018-03-13] MEDS: Budesonide 0.5 Mg/2 mL Ud HHN SCH ×2 (07:24)
[2018-03-13 08:10] LABS: % BASOPHILS 0.3 % (0.0-2.0); % EOSINOPHILS 7.3 % (0.0-5.0); % MONOCYTES 14.1 % (2.0-10.0); % NEUTROPHILS 58.3 % (40.0-80.0); EOSINOPHILE ABSOLUTE 0.3 Th/cmm (0.1-0.4); HEMATOCRIT 26.1 % (41.0-60); HEMOGLOBIN 8.8 gm/dL (12-16); LYMPHOCYTE ABSOLUTE 0.9 Th/cmm (1.5-3.0); MEAN CELL VOLUME 95.4 fl (81-100); MEAN CORPUSCULAR HEMOGLOBIN 32.3 pg (27.0-31.0); MEAN CORPUSCULAR HGB CONC 33.8 pg (28.0-36.0); MEAN PLATELET VOLUME 7.8 fl; MONOCYTE ABSOLUTE 0.6 Th/cmm (0.3-1.0); NEUTROPHILE ABSOLUTE 2.8 Th/cmm (1.8-8.0); PLATELET COUNT 231 Th/cmm (150-400); RED BLOOD COUNT 2.74 Mil/cmm (3.80-5.20); RED CELL DISTRIBUTION WIDTH 17.3 % (11.5-20.0); WHITE BLOOD COUNT 4.6 Th/cmm (4.8-10.8)
[2018-03-13 08:28] LABS: ALB/GLOB RATIO 0.9 (1.0-1.8); ALBUMIN 2.9 gm/dL (3.7-5.3); ALKALINE PHOSPHATASE 68 U/L (34-104); ANION GAP 11.9 (7.0-16.0); BILIRUBIN,TOTAL 0.5 mg/dL (0.3-1.0); BUN - UREA NITROGEN 15 mg/dL (7-25); CALCIUM SERUM 8.9 mg/dL (8.6-10.3); CARBON DIOXIDE 29.5 mEq/L (21.0-31.0); CHLORIDE 101 mEq/L (98-107); CREATININE - SERUM 1.1 mg/dL (0.6-1.2); GFR AFRICAN-AMERICAN > 60.0 ml/min (>90); GFR NON AFRICAN-AMERICAN 52.2 ml/min; GLUCOSE 200 mg/dL (70-105); POTASSIUM SERUM 3.4 mEq/L (3.5-5.1); SGOT 12 U/L (13-39); SGPT/ALT 7 U/L (7-52); SODIUM SERUM 139 mEq/L (136-145); TOTAL PROTEIN,SERUM 6.1 gm/dL (6.0-8.3)
[2018-03-13] MEDS: Levetiracetam 500 mg/5mL 5mL UDSyr *for ORAL USE ONLY GT SCH ×2 (09:18→21:14)
[2018-03-13] MEDS: Lactobacillus Rhamnosus GG 15 Billion CFU CAP.SPRINK GT SCH (09:18)
[2018-03-13] MEDS: Potassium Chloride 10 mEq ER Tab PO SCH (09:18)
[2018-03-13] MEDS: INSULIN HUMAN ISOPHANE (NPH) 100 UNITS/ML SUBQ SCH (09:19)
--- NOTE | 2018-03-13 10:08 | Diagnostic Imaging Report ---
Exam: Chest x-ray HISTORY: Shortness of breath Prior exam: 03/11/2018. Findings: Frontal examination of chest reviewed compatible prior study day earlier demonstrates congestive heart failure with superimposed bilateral interstitial infiltrates. Tracheostomy tube remains in place. Again noted deformity of the right shoulder joint. IMPRESSION: Congestion, peribronchial infiltrates bilaterally. Follow-up exams are recommended.
--- NOTE | 2018-03-13 10:39 | Diagnostic Imaging Report ---
Exam: CT examination abdomen pelvis. HISTORY: Enteric cutaneous fistula. Total DLP equals 726 CTDI equals 18.1 Lungs: Multiple contiguous thin section of the abdomen pelvis obtained from lower thorax to pubic symphysis without the administration of oral or intravenous contrast material. The study correlated with the prior exam of 03/11/2010. The study demonstrates basilar peribronchial infiltrates Liver and spleen intact. There is a evidence for joint. Vena cava filter. There is evidence for cholelithiasis. Gastrostomy tube in the stomach. There is edema over subcutaneous wall at the insertion of the gastrostomy tube. There is no evidence of obstructive uropathy or nephrolithiasis. No free fluid is noted. Mild diverticular process and sigmoid colon. Urinary bladder contains a Randall catheter. There is evidence for a lymph node in left groin area largest one measuring centimeter diameter, clinical correlation recommended. Extensive facet compression fractures of T12 and L1 lumbar vertebra noted IMPRESSION: Bilateral interstitial infiltrates. Small effusions. Cholelithiasis Gastrostomy tube in stomach, subcutaneous edema soft tissue swelling at the gastrostomy site placement. Findings unchanged upper prior examination day earlier. Diverticulosis
--- NOTE | 2018-03-13 11:51 | GI Progress Note ---
Subjective - Review of Systems Service Date: 03/13/18 Events since last encounter: No new events, wound care has been addressing the fistula site, getting meds through G tube no leakage Objective - Results Result Diagrams: 03/13/18 08:05 03/13/18 08:05 Recent Labs: Laboratory Last Values WBC 4.6 Th/cmm (4.8-10.8) L 03/13/18 08:05 RBC 2.74 Mil/cmm (3.80-5.20) L 03/13/18 08:05 Hgb 8.8 gm/dL (12-16) L 03/13/18 08:05 Hct 26.1 % (41.0-60) L 03/13/18 08:05 MCV 95.4 fl (81-100) 03/13/18 08:05 MCH 32.3 pg (27.0-31.0) H 03/13/18 08:05 MCHC Differential 33.8 pg (28.0-36.0) 03/13/18 08:05 RDW 17.3 % (11.5-20.0) 03/13/18 08:05 Plt Count 231 Th/cmm (150-400) 03/13/18 08:05 MPV 7.8 fl 03/13/18 08:05 Neutrophils % 58.3 % (40.0-80.0) 03/13/18 08:05 Lymphocytes % 20.0 % (20.0-50.0) 03/13/18 08:05 Monocytes % 14.1 % (2.0-10.0) H 03/13/18 08:05 Eosinophils % 7.3 % (0.0-5.0) H 03/13/18 08:05 Basophils % 0.3 % (0.0-2.0) 03/13/18 08:05 Specimen Source Arterial 03/12/18 17:02 Sample Site Right Radial 03/12/18 17:02 pH 7.45 (7.35-7.45) 03/12/18 17:02 pCO2 46.0 mmHg (35.0-45.0) H 03/12/18 17:02 pO2 483.0 mmHg (80.0-100.0) H 03/12/18 17:02 HCO3 30.5 mEq/L (20.0-26.0) H 03/12/18 17:02 Base Excess 7.0 mEq/L (-3.0-3.0) H 03/12/18 17:02 O2 Saturation 100.0 % (92.0-100.0) 03/12/18 17:02 Cristofer Test Positive 03/12/18 17:02 Vent Rate 14 03/12/18 17:02 Inspired O2 100 03/12/18 17:02 Tidal Volume 400 03/12/18 17:02 PEEP 7 03/12/18 17:02 Pressure (ins/psv/peep) NA 03/12/18 17:02 Critical Value SH 03/12/18 17:02 Sodium 139 mEq/L (136-145) 03/13/18 08:05 Potassium 3.4 mEq/L (3.5-5.1) L 03/13/18 08:05 Chloride 101 mEq/L (98-107) 03/13/18 08:05 Carbon Dioxide 29.5 mEq/L (21.0-31.0) 03/13/18 08:05 Anion Gap 11.9 (7.0-16.0) 03/13/18 08:05 BUN 15 mg/dL (7-25) 03/13/18 08:05 Creatinine 1.1 mg/dL (0.6-1.2) 03/13/18 08:05 Est GFR ( Amer) > 60.0 ml/min (>90) 03/13/18 08:05 Est GFR (Non-Af Amer) 52.2 ml/min 03/13/18 08:05 BUN/Creatinine Ratio 13.6 03/13/18 08:05 Glucose 200 mg/dL (70-105) H 03/13/18 08:05 POC Glucose 273 MG/DL (70 - 105) H 03/12/18 23:47 Whole Bld Lactic Acid 1.36 mmol/L (0.60-1.99) 03/10/18 17:15 Calcium 8.9 mg/dL (8.6-10.3) 03/13/18 08:05 Total Bilirubin 0.5 mg/dL (0.3-1.0) 03/13/18 08:05 AST 12 U/L (13-39) L 03/13/18 08:05 ALT 7 U/L (7-52) 03/13/18 08:05 Alkaline Phosphatase 68 U/L (34-104) 03/13/18 08:05 Total Protein 6.1 gm/dL (6.0-8.3) 03/13/18 08:05 Albumin 2.9 gm/dL (3.7-5.3) L 03/13/18 08:05 Globulin 3.2 gm/dL 03/13/18 08:05 Albumin/Globulin Ratio 0.9 (1.0-1.8) L 03/13/18 08:05 Vancomycin Trough 20.4 ug/mL (5-10) H 03/12/18 07:50 - Physical Exam Vitals and I&O: Vital Signs Temp 96.7 F 03/13/18 08:00 Pulse 70 03/13/18 11:42 Resp 16 03/13/18 10:00 BP 118/39 03/13/18 10:00 Pulse Ox 99 03/13/18 11:42 Intake & Output 03/12/18 03/13/18 03/13/18 18:59 06:59 18:59 Intake Total 250 50 80 Output Total 650 1450 Balance 250 -600 -1370 Weight (lbs) 71.214 kg 68.81 kg Intake: Intake, IV Amount 250 50 Levofloxacin 250mg/50mL 50 250 mg In 50 ml @ 50 mls/ hr IV DAILY@2100 [facility] Rx#: [id number] Vancomycin HCl 0.75 gm In 250 Sodium Chloride 0.9% 250 ml @ 165 mls/hr IV Q24H [facility] Rx#:[id number] Other 80 Output: Urine 650 1450 Other: # Bowel Movements 2 1 Stool Characteristics Formed Soft Formed Green Liquid Green Brown Green [facility] Active Medications: Current Medications Acetaminophen (Tylenol 650mg/20.3ml Suspension) 650 mg GT Q6H PRN PRN Reason: Pain or Fever >101 Stop: 05/10/18 19:06 Acetaminophen/Hydrocodone Bitart ([place] 5mg/325mg) 1 tab GT Q6H PRN PRN Reason: Pain (Moderate) Stop: 05/10/18 19:06 Albuterol Sulfate (Albuterol 2.5mg/3ml Neb Ud) 2.5 mg HHN PRN PRN PRN Reason: WHEEZING Stop: 05/11/18 08:34 Albuterol/Ipratropium (Duoneb Neb) 3 ml HHN Q4HRT [facility]; Protocol Stop: 05/09/18 22:59 Last Admin: 03/13/18 11:42 Dose: 3 ml Ascorbic Acid (Vitamin C) 500 mg GT DAILY [facility] Stop: 05/11/18 08:59 Last Admin: 03/13/18 09:20 Dose: 500 mg Budesonide (Pulmicort) 0.5 mg HHN BID [facility] Stop: 05/11/18 08:59 Last Admin: 03/13/18 07:24 Dose: 0.5 mg Docusate Sodium (Colace) 100 mg GT Q12HR@0600,1800 [facility] Stop: 05/11/18 07:59 Last Admin: 03/13/18 05:29 Dose: Not Given Epoetin Teddy (Epogen) 10,000 units SUBQ MWF@1600 [facility] Stop: 05/11/18 15:59 Last Admin: 03/12/18 17:33 Dose: 10,000 units Ferrous Sulfate (Iron) 300 mg GT Q8HR [facility] Stop: 05/11/18 12:59 Last Admin: 03/13/18 05:29 Dose: 300 mg Furosemide (Lasix) 20 mg GT DAILY [facility] Stop: 05/11/18 08:59 Last Admin: 03/13/18 09:19 Dose: Not Given Furosemide (Lasix) 40 mg IVP DAILY [facility] Stop: 03/14/18 17:00 Last Admin: 03/13/18 09:18 Dose: 40 mg Heparin Sodium (Porcine) (Heparin) 5,000 units SUBQ Q12HR [facility] Stop: 05/10/18 20:59 Last Admin: 03/13/18 09:19 Dose: 5,000 units Levofloxacin (Levaquin Pb) 250 mg in 50 mls @ 50 mls/hr IV DAILY@2100 [facility] Stop: 05/10/18 20:59 Last Infusion: 03/12/18 22:45 Dose: Infused Vancomycin HCl 0.75 gm/ Sodium (Chloride) 250 mls @ 165 mls/hr IV Q24H [facility] Stop: 05/10/18 08:59 Last Admin: 03/13/18 09:17 Dose: 165 mls/hr Dextrose/Sodium Chloride (D5-0.45ns) 1,000 mls @ 50 mls/hr IV .Q20H [facility] Stop: 05/11/18 14:00 Last Admin: 03/12/18 17:41 Dose: 50 mls/hr Insulin Aspart (Novolog Insulin Sliding Scale) 0 units SUBQ Q6HR [facility]; Protocol Stop: 05/10/18 00:00 Last Admin: 03/13/18 05:49 Dose: 4 units Insulin Human NPH (Novolin N) 22 units SUBQ BID [facility]; Protocol Stop: 05/11/18 08:59 Last Admin: 03/13/18 09:19 Dose: Not Given Ipratropium [place] (Atrovent Neb 0.5mg/2.5ml) 0.5 mg HHN PRN PRN PRN Reason: Wheezing Stop: 05/10/18 19:06 Last Admin: 03/11/18 20:47 Dose: 0.5 mg Lactobacillus Rhamnosus (Culturelle 15b) 1 each GT DAILY [facility] Stop: 05/11/18 08:59 Last Admin: 03/13/18 09:18 Dose: 1 each Levetiracetam (Keppra) 250 mg GT Q12H [facility] Stop: 05/11/18 08:59 Last Admin: 03/13/18 09:18 Dose: 250 mg Levothyroxine Sodium 0.075 mg/ (Levothyroxine Sodium 0.1 mg) 0.175 mg PO DAILY [facility] Stop: 05/11/18 08:59 Last Admin: 03/13/18 09:18 Dose: 0.175 mg Lorazepam (Ativan) 0.5 mg GT Q6HR PRN; Protocol PRN Reason: Anxiety Stop: 05/10/18 19:06 Miscellaneous (Vancomycin Iv Per Pharmacy) 1 ea PRN PRN PRN Reason: PROTOCOL Stop: 05/09/18 21:52 Miscellaneous (Vte Chemical Prophylaxis Screen/Icu Transfer) 1 ea PRN PRN PRN Reason: PROTOCOL Stop: 05/10/18 15:57 Pantoprazole Sodium (Protonix) 40 mg IVP DAILY [facility] Stop: 05/11/18 08:59 Last Admin: 03/13/18 09:18 Dose: 40 mg Potassium Chloride (Klor-Con) 10 meq PO DAILY [facility] Stop: 05/11/18 10:59 Last Admin: 03/13/18 09:18 Dose: 10 meq HEENT: Atraumatic, PERRLA, EOMI Neck: Supple Cardiovascular: Regular rate, Normal S1 Abdomen: Bowel sounds, Soft - Procedures Procedures: Procedures Procedure Code Date EXCISION OF STOMACH, ENDO, DIAGN [id number] 02/09/17 INSERTION OF INFUSION DEV INTO SUP VENA CAVA, PERC APPROACH 39AJ91E 02/09/17 RESPIRATORY VENTILATION, 24-96 CONSECUTIVE HOURS [id number] 03/10/18 TRANSFUSE NONAUT RED BLOOD CELLS IN PERIPH VEIN, PERC 11785Z6 02/09/17 Assessment/Plan - Assessment Assessment: 1. G tube site cellulitis 2. Gastrocutaneous fistula -Recommend bowel rest; -Start tube feeds at low rate -I overinflated internal balloon to try and prevent leakage -cellulitis looks improved -TPN until tolerating tube feeds -f/u surgery recs
[2018-03-13] MEDS: D5-0.45NS 1,000 ML IV SCH (12:07)
--- NOTE | 2018-03-13 13:54 | Infectious Disease Prog Note ---
Infectious Disease Subjective - Review of Systems Service Date: 03/13/18 Infectious Disease Objective - Results Result Diagrams: 03/13/18 08:05 03/13/18 08:05 Recent Labs: Laboratory Last Values WBC 4.6 Th/cmm (4.8-10.8) L 03/13/18 08:05 RBC 2.74 Mil/cmm (3.80-5.20) L 03/13/18 08:05 Hgb 8.8 gm/dL (12-16) L 03/13/18 08:05 Hct 26.1 % (41.0-60) L 03/13/18 08:05 MCV 95.4 fl (81-100) 03/13/18 08:05 MCH 32.3 pg (27.0-31.0) H 03/13/18 08:05 MCHC Differential 33.8 pg (28.0-36.0) 03/13/18 08:05 RDW 17.3 % (11.5-20.0) 03/13/18 08:05 Plt Count 231 Th/cmm (150-400) 03/13/18 08:05 MPV 7.8 fl 03/13/18 08:05 Neutrophils % 58.3 % (40.0-80.0) 03/13/18 08:05 Lymphocytes % 20.0 % (20.0-50.0) 03/13/18 08:05 Monocytes % 14.1 % (2.0-10.0) H 03/13/18 08:05 Eosinophils % 7.3 % (0.0-5.0) H 03/13/18 08:05 Basophils % 0.3 % (0.0-2.0) 03/13/18 08:05 Specimen Source Arterial 03/12/18 17:02 Sample Site Right Radial 03/12/18 17:02 pH 7.45 (7.35-7.45) 03/12/18 17:02 pCO2 46.0 mmHg (35.0-45.0) H 03/12/18 17:02 pO2 483.0 mmHg (80.0-100.0) H 03/12/18 17:02 HCO3 30.5 mEq/L (20.0-26.0) H 03/12/18 17:02 Base Excess 7.0 mEq/L (-3.0-3.0) H 03/12/18 17:02 O2 Saturation 100.0 % (92.0-100.0) 03/12/18 17:02 Cristofer Test Positive 03/12/18 17:02 Vent Rate 14 03/12/18 17:02 Inspired O2 100 03/12/18 17:02 Tidal Volume 400 03/12/18 17:02 PEEP 7 03/12/18 17:02 Pressure (ins/psv/peep) NA 03/12/18 17:02 Critical Value SH 03/12/18 17:02 Sodium 139 mEq/L (136-145) 03/13/18 08:05 Potassium 3.4 mEq/L (3.5-5.1) L 03/13/18 08:05 Chloride 101 mEq/L (98-107) 03/13/18 08:05 Carbon Dioxide 29.5 mEq/L (21.0-31.0) 03/13/18 08:05 Anion Gap 11.9 (7.0-16.0) 03/13/18 08:05 BUN 15 mg/dL (7-25) 03/13/18 08:05 Creatinine 1.1 mg/dL (0.6-1.2) 03/13/18 08:05 Est GFR ( Amer) > 60.0 ml/min (>90) 03/13/18 08:05 Est GFR (Non-Af Amer) 52.2 ml/min 03/13/18 08:05 BUN/Creatinine Ratio 13.6 03/13/18 08:05 Glucose 200 mg/dL (70-105) H 03/13/18 08:05 POC Glucose 199 MG/DL (70 - 105) H 03/13/18 11:51 Whole Bld Lactic Acid 1.36 mmol/L (0.60-1.99) 03/10/18 17:15 Calcium 8.9 mg/dL (8.6-10.3) 03/13/18 08:05 Total Bilirubin 0.5 mg/dL (0.3-1.0) 03/13/18 08:05 AST 12 U/L (13-39) L 03/13/18 08:05 ALT 7 U/L (7-52) 03/13/18 08:05 Alkaline Phosphatase 68 U/L (34-104) 03/13/18 08:05 Total Protein 6.1 gm/dL (6.0-8.3) 03/13/18 08:05 Albumin 2.9 gm/dL (3.7-5.3) L 03/13/18 08:05 Globulin 3.2 gm/dL 03/13/18 08:05 Albumin/Globulin Ratio 0.9 (1.0-1.8) L 03/13/18 08:05 Vancomycin Trough 20.4 ug/mL (5-10) H 03/12/18 07:50 - Physical Exam Vitals and I&O: Vital Signs Temp 96.7 F 03/13/18 08:00 Pulse 70 03/13/18 11:42 Resp 16 03/13/18 10:00 BP 118/39 03/13/18 10:00 Pulse Ox 100 03/13/18 12:00 Intake & Output 03/12/18 03/13/18 03/13/18 18:59 06:59 18:59 Intake Total 822 20 7129.667 Output Total 650 1450 Balance 250 -600 -448.333 Weight (lbs) 71.214 kg 68.81 kg Intake: Intake, IV Amount 250 50 921.667 D5-0.45NS 1,000 ml @ 50 921.667 mls/hr IV .Q20H [facility] Rx#: [id number] Levofloxacin 250mg/50mL 50 250 mg In 50 ml @ 50 mls/ hr IV DAILY@2100 [facility] Rx#: [id number] Vancomycin HCl 0.75 gm In 250 Sodium Chloride 0.9% 250 ml @ 165 mls/hr IV Q24H [facility] Rx#:[id number] Other 80 Output: Urine 650 1450 Other: # Bowel Movements 2 1 Stool Characteristics Formed Soft Formed Green Liquid Green Brown Green Weight Source Bedscale Bedscale Active Medications: Current Medications Acetaminophen (Tylenol 650mg/20.3ml Suspension) 650 mg GT Q6H PRN PRN Reason: Pain or Fever >101 Stop: 05/10/18 19:06 Acetaminophen/Hydrocodone Bitart ([place] 5mg/325mg) 1 tab GT Q6H PRN PRN Reason: Pain (Moderate) Stop: 05/10/18 19:06 Albuterol Sulfate (Albuterol 2.5mg/3ml Neb Ud) 2.5 mg HHN PRN PRN PRN Reason: WHEEZING Stop: 05/11/18 08:34 Albuterol/Ipratropium (Duoneb Neb) 3 ml HHN Q4HRT [facility]; Protocol Stop: 05/09/18 22:59 Last Admin: 03/13/18 11:42 Dose: 3 ml Ascorbic Acid (Vitamin C) 500 mg GT DAILY [facility] Stop: 05/11/18 08:59 Last Admin: 03/13/18 09:20 Dose: 500 mg Budesonide (Pulmicort) 0.5 mg HHN BID [facility] Stop: 05/11/18 08:59 Last Admin: 03/13/18 07:24 Dose: 0.5 mg Docusate Sodium (Colace) 100 mg GT Q12HR@0600,1800 [facility] Stop: 05/11/18 07:59 Last Admin: 03/13/18 05:29 Dose: Not Given Epoetin Teddy (Epogen) 10,000 units SUBQ MWF@1600 [facility] Stop: 05/11/18 15:59 Last Admin: 03/12/18 17:33 Dose: 10,000 units Ferrous Sulfate (Iron) 300 mg GT Q8HR [facility] Stop: 05/11/18 12:59 Last Admin: 03/13/18 05:29 Dose: 300 mg Furosemide (Lasix) 20 mg GT DAILY [facility] Stop: 05/11/18 08:59 Last Admin: 03/13/18 09:19 Dose: Not Given Furosemide (Lasix) 40 mg IVP DAILY [facility] Stop: 03/14/18 17:00 Last Admin: 03/13/18 09:18 Dose: 40 mg Heparin Sodium (Porcine) (Heparin) 5,000 units SUBQ Q12HR [facility] Stop: 05/10/18 20:59 Last Admin: 03/13/18 09:19 Dose: 5,000 units Levofloxacin (Levaquin Pb) 250 mg in 50 mls @ 50 mls/hr IV DAILY@2100 [facility] Stop: 05/10/18 20:59 Last Infusion: 03/12/18 22:45 Dose: Infused Vancomycin HCl 0.75 gm/ Sodium (Chloride) 250 mls @ 165 mls/hr IV Q24H [facility] Stop: 05/10/18 08:59 Last Admin: 03/13/18 09:17 Dose: 165 mls/hr Dextrose/Sodium Chloride (D5-0.45ns) 1,000 mls @ 50 mls/hr IV .Q20H [facility] Stop: 05/11/18 14:00 Last Admin: 03/13/18 12:07 Dose: 50 mls/hr Insulin Aspart (Novolog Insulin Sliding Scale) 0 units SUBQ Q6HR [facility]; Protocol Stop: 05/10/18 00:00 Last Admin: 03/13/18 12:05 Dose: 2 units Insulin Human NPH (Novolin N) 22 units SUBQ BID [facility]; Protocol Stop: 05/11/18 08:59 Last Admin: 03/13/18 09:19 Dose: Not Given Ipratropium [place] (Atrovent Neb 0.5mg/2.5ml) 0.5 mg HHN PRN PRN PRN Reason: Wheezing Stop: 05/10/18 19:06 Last Admin: 03/11/18 20:47 Dose: 0.5 mg Lactobacillus Rhamnosus (Culturelle 15b) 1 each GT DAILY [facility] Stop: 05/11/18 08:59 Last Admin: 03/13/18 09:18 Dose: 1 each Levetiracetam (Keppra) 250 mg GT Q12H [facility] Stop: 05/11/18 08:59 Last Admin: 03/13/18 09:18 Dose: 250 mg Levothyroxine Sodium 0.075 mg/ (Levothyroxine Sodium 0.1 mg) 0.175 mg PO DAILY [facility] Stop: 05/11/18 08:59 Last Admin: 03/13/18 09:18 Dose: 0.175 mg Lorazepam (Ativan) 0.5 mg GT Q6HR PRN; Protocol PRN Reason: Anxiety Stop: 05/10/18 19:06 Miscellaneous (Vancomycin Iv Per Pharmacy) 1 ea PRN PRN PRN Reason: PROTOCOL Stop: 05/09/18 21:52 Miscellaneous (Vte Chemical Prophylaxis Screen/Icu Transfer) 1 ea PRN PRN PRN Reason: PROTOCOL Stop: 05/10/18 15:57 Pantoprazole Sodium (Protonix) 40 mg IVP DAILY [facility] Stop: 05/11/18 08:59 Last Admin: 03/13/18 09:18 Dose: 40 mg Potassium Chloride (Klor-Con) 10 meq PO DAILY [facility] Stop: 03/01/19 10:59 Last Admin: 03/13/18 09:18 Dose: 10 meq General: no acute distress, other (short stature on ventilator, s/p trtach.) HEENT: atraumatic, normocephalic, PERRLA Neck: supple, tracheostomy, no thyromegaly Cardiovascular: S1S2, regular Lungs: clear to auscultation bilaterally, clear to percussion Abdomen: soft, bowel sounds, no tender, no distended, no mass, no rebound Extremities: no cyanosis, no clubbing, no edema Neurological: awake, alert Skin: intact - Procedures Procedures: Procedures Procedure Code Date EXCISION OF STOMACH, ENDO, DIAGN [id number] 02/09/17 INSERTION OF INFUSION DEV INTO SUP VENA CAVA, PERC APPROACH [id number] 02/09/17 RESPIRATORY VENTILATION, 24-96 CONSECUTIVE HOURS [id number] 03/10/18 TRANSFUSE NONAUT RED BLOOD CELLS IN PERIPH VEIN, PERC 82919L2 02/09/17 Infectious Disease Assmt/Plan - Assessment Assessment: 1. Abdominal wall cellulitis and G tube malfunction 2. Down's Syndrome. 3. VDRF. 4. Mental retardation. - Plan Plan: cpm. Nutritional Asmnt/Malnutr-PDOC - Dietary Evaluation Malnutrition Findings (Please click <Entered> for more info): Nutritional Asmnt/Malnutrition Start: 03/12/18 14: 11 Text: Status: Complete Freq: Protocol: Document 03/12/18 14:13 LCHENG (Rec: 03/12/18 15:07 [email or web address] [id number]) Nutritional Asmnt/Malnutrition Patient General Information Nutritional Screening High Risk Consult Diagnosis fever, cellulitis of abdominal wall Pertinent Medical Hx/Surgical Hx Dm, DVT/PE, dementia, down syndrome, resp failure, PEG/ GTube, chronic trach Subjective Information Pt seen resting in bed at time of visit, non-verbal, on vent via trach. 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 Current Diet Order/ Nutrition Support NPO Pertinent Medications vit C, D5-0.45ns, colace, iron , lasix, novolog, novolin, culturelle, levaquin, levothyroxine, protonix, kcl, vancomycin Pertinent Labs 03/12 glucose 232, POC 225-252 03/11 Na 135, BUN 35, Cr 1.3, Glucose 154, POC 166-247 Nutritional Hx/Data Height 1.42 m Height (Calculated Centimeters) 142.2 Current Weight (lbs) 71.214 kg Weight (Calculated Kilograms) 71.2 Weight (Calculated Grams) 21579.0 [place] Body Weight 92 Body Mass Index (BMI) 35.2 Weight Status Obese GI Symptoms Last BM 03/11 Skin Integrity/Comment: rash to abdomen, scar to face, pressure area reddened to buttocks Estimated Nutritional Goals BEE in Kcals: Adj wt of IBW Calories/Kcals/Kg 27-32 adj wt 49kg Kcals Calculated 3535-0321 Protein: Adj wt of IBW Protein g/k.2-1.4 Protein Calculated 59-68 Fluid: ml 1323-1568ml (1ml/kcal) Nutritional Problem 2. Problem Problem inadequate energy intake Etiology GI dysfunction Signs/Symptoms: TF not initiated 1. Problem Problem altered nutrition related labs Etiology hyperglycemia Signs/Symptoms: glucose 232, POC 225-252 on Malnutrition Alert Is there a minimum of two criteria No selected? Query Text:Check all the applicable criteria. A minimum of two criteria are recommended for diagnosis of either severe or non-severe malnutrition. Malnutrition Related to Morbid Obesity Malnutrition related to morbid obesity No Intervention/Recommendation Comments 1. Monitor NPO status. 2. When medically appropriate, initiate TF with Glucerna 1.2 at 20ml/hr and increarse 10ml /hr q6hr to goal rate of 50ml/ hr continuous. This will provide 1440kcal, 72g protein and 96ml free water, meeting 100% of nutritional needs. 3. Monitor GI function, wt, labs and skin integrity 3. F/U as high risk in 2-3 days, 1/2-1/3 Expected Outcomes/Goals Expected Outcomes/Goals 1. Nutrition support initiated 2. Wt stability, skin to remain intact, labs to approach WNL.
--- NOTE | 2018-03-13 14:31 | Infectious Disease Prog Note ---
Infectious Disease Subjective - Review of Systems Service Date: 03/13/18 Events since last encounter: G tube changed. Subjective: no fever Infectious Disease Objective - Results Result Diagrams: 03/13/18 08:05 03/13/18 08:05 Recent Labs: Laboratory Last Values WBC 4.6 Th/cmm (4.8-10.8) L 03/13/18 08:05 RBC 2.74 Mil/cmm (3.80-5.20) L 03/13/18 08:05 Hgb 8.8 gm/dL (12-16) L 03/13/18 08:05 Hct 26.1 % (41.0-60) L 03/13/18 08:05 MCV 95.4 fl (81-100) 03/13/18 08:05 MCH 32.3 pg (27.0-31.0) H 03/13/18 08:05 MCHC Differential 33.8 pg (28.0-36.0) 03/13/18 08:05 RDW 17.3 % (11.5-20.0) 03/13/18 08:05 Plt Count 231 Th/cmm (150-400) 03/13/18 08:05 MPV 7.8 fl 03/13/18 08:05 Neutrophils % 58.3 % (40.0-80.0) 03/13/18 08:05 Lymphocytes % 20.0 % (20.0-50.0) 03/13/18 08:05 Monocytes % 14.1 % (2.0-10.0) H 03/13/18 08:05 Eosinophils % 7.3 % (0.0-5.0) H 03/13/18 08:05 Basophils % 0.3 % (0.0-2.0) 03/13/18 08:05 Specimen Source Arterial 03/12/18 17:02 Sample Site Right Radial 03/12/18 17:02 pH 7.45 (7.35-7.45) 03/12/18 17:02 pCO2 46.0 mmHg (35.0-45.0) H 03/12/18 17:02 pO2 483.0 mmHg (80.0-100.0) H 03/12/18 17:02 HCO3 30.5 mEq/L (20.0-26.0) H 03/12/18 17:02 Base Excess 7.0 mEq/L (-3.0-3.0) H 03/12/18 17:02 O2 Saturation 100.0 % (92.0-100.0) 03/12/18 17:02 Cristofer Test Positive 03/12/18 17:02 Vent Rate 14 03/12/18 17:02 Inspired O2 100 03/12/18 17:02 Tidal Volume 400 03/12/18 17:02 PEEP 7 03/12/18 17:02 Pressure (ins/psv/peep) NA 03/12/18 17:02 Critical Value SH 03/12/18 17:02 Sodium 139 mEq/L (136-145) 03/13/18 08:05 Potassium 3.4 mEq/L (3.5-5.1) L 03/13/18 08:05 Chloride 101 mEq/L (98-107) 03/13/18 08:05 Carbon Dioxide 29.5 mEq/L (21.0-31.0) 03/13/18 08:05 Anion Gap 11.9 (7.0-16.0) 03/13/18 08:05 BUN 15 mg/dL (7-25) 03/13/18 08:05 Creatinine 1.1 mg/dL (0.6-1.2) 03/13/18 08:05 Est GFR ( Amer) > 60.0 ml/min (>90) 03/13/18 08:05 Est GFR (Non-Af Amer) 52.2 ml/min 03/13/18 08:05 BUN/Creatinine Ratio 13.6 03/13/18 08:05 Glucose 200 mg/dL (70-105) H 03/13/18 08:05 POC Glucose 199 MG/DL (70 - 105) H 03/13/18 11:51 Whole Bld Lactic Acid 1.36 mmol/L (0.60-1.99) 03/10/18 17:15 Calcium 8.9 mg/dL (8.6-10.3) 03/13/18 08:05 Total Bilirubin 0.5 mg/dL (0.3-1.0) 03/13/18 08:05 AST 12 U/L (13-39) L 03/13/18 08:05 ALT 7 U/L (7-52) 03/13/18 08:05 Alkaline Phosphatase 68 U/L (34-104) 03/13/18 08:05 Total Protein 6.1 gm/dL (6.0-8.3) 03/13/18 08:05 Albumin 2.9 gm/dL (3.7-5.3) L 03/13/18 08:05 Globulin 3.2 gm/dL 03/13/18 08:05 Albumin/Globulin Ratio 0.9 (1.0-1.8) L 03/13/18 08:05 Vancomycin Trough 20.4 ug/mL (5-10) H 03/12/18 07:50 - Physical Exam Vitals and I&O: Vital Signs Temp 97.6 F 03/13/18 12:00 Pulse 79 03/13/18 14:12 Resp 16 03/13/18 13:00 BP 107/30 03/13/18 13:00 Pulse Ox 98 03/13/18 14:12 Intake & Output 03/12/18 03/13/18 03/13/18 18:59 06:59 18:59 Intake Total 536 27 7549.667 Output Total 650 1450 Balance 250 -600 -448.333 Weight (lbs) 71.214 kg 68.81 kg Intake: Intake, IV Amount 250 50 921.667 D5-0.45NS 1,000 ml @ 50 921.667 mls/hr IV .Q20H [facility] Rx#: [id number] Levofloxacin 250mg/50mL 50 250 mg In 50 ml @ 50 mls/ hr IV DAILY@2100 [facility] Rx#: [id number] Vancomycin HCl 0.75 gm In 250 Sodium Chloride 0.9% 250 ml @ 165 mls/hr IV Q24H [facility] Rx#:[id number] Other 80 Output: Urine 650 1450 Other: # Bowel Movements 2 1 Stool Characteristics Formed Soft Formed Green Liquid Green Brown Green Weight Source Bedscale Bedscale Active Medications: Current Medications Acetaminophen (Tylenol 650mg/20.3ml Suspension) 650 mg GT Q6H PRN PRN Reason: Pain or Fever >101 Stop: 05/10/18 19:06 Acetaminophen/Hydrocodone Bitart ([place] 5mg/325mg) 1 tab GT Q6H PRN PRN Reason: Pain (Moderate) Stop: 05/10/18 19:06 Albuterol Sulfate (Albuterol 2.5mg/3ml Neb Ud) 2.5 mg HHN PRN PRN PRN Reason: WHEEZING Stop: 05/11/18 08:34 Albuterol/Ipratropium (Duoneb Neb) 3 ml HHN Q4HRT [facility]; Protocol Stop: 05/09/18 22:59 Last Admin: 03/13/18 14:12 Dose: 3 ml Ascorbic Acid (Vitamin C) 500 mg GT DAILY [facility] Stop: 05/11/18 08:59 Last Admin: 03/13/18 09:20 Dose: 500 mg Budesonide (Pulmicort) 0.5 mg HHN BID [facility] Stop: 05/11/18 08:59 Last Admin: 03/13/18 07:24 Dose: 0.5 mg Docusate Sodium (Colace) 100 mg GT Q12HR@0600,1800 [facility] Stop: 05/11/18 07:59 Last Admin: 03/13/18 05:29 Dose: Not Given Epoetin Teddy (Epogen) 10,000 units SUBQ MWF@1600 [facility] Stop: 05/11/18 15:59 Last Admin: 03/12/18 17:33 Dose: 10,000 units Ferrous Sulfate (Iron) 300 mg GT Q8HR [facility] Stop: 05/11/18 12:59 Last Admin: 03/13/18 05:29 Dose: 300 mg Furosemide (Lasix) 20 mg GT DAILY [facility] Stop: 05/11/18 08:59 Last Admin: 03/13/18 09:19 Dose: Not Given Furosemide (Lasix) 40 mg IVP DAILY [facility] Stop: 03/14/18 17:00 Last Admin: 03/13/18 09:18 Dose: 40 mg Heparin Sodium (Porcine) (Heparin) 5,000 units SUBQ Q12HR [facility] Stop: 05/10/18 20:59 Last Admin: 03/13/18 09:19 Dose: 5,000 units Levofloxacin (Levaquin Pb) 250 mg in 50 mls @ 50 mls/hr IV DAILY@2100 [facility] Stop: 05/10/18 20:59 Last Infusion: 03/12/18 22:45 Dose: Infused Vancomycin HCl 0.75 gm/ Sodium (Chloride) 250 mls @ 165 mls/hr IV Q24H [facility] Stop: 05/10/18 08:59 Last Admin: 03/13/18 09:17 Dose: 165 mls/hr Dextrose/Sodium Chloride (D5-0.45ns) 1,000 mls @ 50 mls/hr IV .Q20H [facility] Stop: 05/11/18 14:00 Last Admin: 03/13/18 12:07 Dose: 50 mls/hr Insulin Aspart (Novolog Insulin Sliding Scale) 0 units SUBQ Q6HR [facility]; Protocol Stop: 05/10/18 00:00 Last Admin: 03/13/18 12:05 Dose: 2 units Insulin Human NPH (Novolin N) 22 units SUBQ BID [facility]; Protocol Stop: 05/11/18 08:59 Last Admin: 03/13/18 09:19 Dose: Not Given Ipratropium [place] (Atrovent Neb 0.5mg/2.5ml) 0.5 mg HHN PRN PRN PRN Reason: Wheezing Stop: 05/10/18 19:06 Last Admin: 03/11/18 20:47 Dose: 0.5 mg Lactobacillus Rhamnosus (Culturelle 15b) 1 each GT DAILY [facility] Stop: 05/11/18 08:59 Last Admin: 03/13/18 09:18 Dose: 1 each Levetiracetam (Keppra) 250 mg GT Q12H [facility] Stop: 05/11/18 08:59 Last Admin: 03/13/18 09:18 Dose: 250 mg Levothyroxine Sodium 0.075 mg/ (Levothyroxine Sodium 0.1 mg) 0.175 mg PO DAILY [facility] Stop: 05/11/18 08:59 Last Admin: 03/13/18 09:18 Dose: 0.175 mg Lorazepam (Ativan) 0.5 mg GT Q6HR PRN; Protocol PRN Reason: Anxiety Stop: 05/10/18 19:06 Miscellaneous (Vancomycin Iv Per Pharmacy) 1 ea PRN PRN PRN Reason: PROTOCOL Stop: 05/09/18 21:52 Miscellaneous (Vte Chemical Prophylaxis Screen/Icu Transfer) 1 ea PRN PRN PRN Reason: PROTOCOL Stop: 05/10/18 15:57 Pantoprazole Sodium (Protonix) 40 mg IVP DAILY [facility] Stop: 05/11/18 08:59 Last Admin: 03/13/18 09:18 Dose: 40 mg Potassium Chloride (Klor-Con) 10 meq PO DAILY [facility] Stop: 05/11/18 10:59 Last Admin: 03/13/18 09:18 Dose: 10 meq General: no acute distress, well developed, well nourished HEENT: atraumatic, normocephalic, PERRLA, EOMI Neck: supple, no thyromegaly, no lymphadenopathy Cardiovascular: S1S2, regular Lungs: clear to auscultation bilaterally, clear to percussion Abdomen: soft, tender, other (abdominal wall ertythema surrounding G tube) Extremities: no cyanosis, no clubbing, no edema Neurological: awake - Procedures Procedures: Procedures Procedure Code Date EXCISION OF STOMACH, ENDO, DIAGN [id number] 02/09/17 INSERTION OF INFUSION DEV INTO SUP VENA CAVA, PERC APPROACH 14OH11A 02/09/17 RESPIRATORY VENTILATION, 24-96 CONSECUTIVE HOURS [id number] 03/10/18 TRANSFUSE NONAUT RED BLOOD CELLS IN PERIPH VEIN, PERC 95566J1 02/09/17 Infectious Disease Assmt/Plan - Assessment Assessment: 1. Abdominal wall cellulitis and G tube malfunction 2. Down's Syndrome. 3. VDRF. 4. Mental retardation. - Plan Plan: cpm. Nutritional Asmnt/Malnutr-PDOC - Dietary Evaluation Malnutrition Findings (Please click <Entered> for more info): Nutritional Asmnt/Malnutrition Start: 03/12/18 14: 11 Text: Status: Complete Freq: Protocol: Document 03/12/18 14:13 LCHENG (Rec: 03/12/18 15:07 [email or web address]) Nutritional Asmnt/Malnutrition Patient General Information Nutritional Screening High Risk Consult Diagnosis fever, cellulitis of abdominal wall Pertinent Medical Hx/Surgical Hx Dm, DVT/PE, dementia, down syndrome, resp failure, PEG/ GTube, chronic trach Subjective Information Pt seen resting in bed at time of visit, non-verbal, on vent via trach. 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 Current Diet Order/ Nutrition Support NPO Pertinent Medications vit C, D5-0.45ns, colace, iron , lasix, novolog, novolin, culturelle, levaquin, levothyroxine, protonix, kcl, vancomycin Pertinent Labs 03/12 glucose 232, POC 225-252 03/11 Na 135, BUN 35, Cr 1.3, Glucose 154, POC 166-247 Nutritional Hx/Data Height 1.42 m Height (Calculated Centimeters) 142.2 Current Weight (lbs) 71.214 kg Weight (Calculated Kilograms) 71.2 Weight (Calculated Grams) 41500.0 [place] Body Weight 92 Body Mass Index (BMI) 35.2 Weight Status Obese GI Symptoms Last BM 03/11 Skin Integrity/Comment: rash to abdomen, scar to face, pressure area reddened to buttocks Estimated Nutritional Goals BEE in Kcals: Adj wt of IBW Calories/Kcals/Kg 27-32 adj wt 49kg Kcals Calculated 5762-2140 Protein: Adj wt of IBW Protein g/k.2-1.4 Protein Calculated 59-68 Fluid: ml 1323-1568ml (1ml/kcal) Nutritional Problem 2. Problem Problem inadequate energy intake Etiology GI dysfunction Signs/Symptoms: TF not initiated 1. Problem Problem altered nutrition related labs Etiology hyperglycemia Signs/Symptoms: glucose 232, POC 225-252 on Malnutrition Alert Is there a minimum of two criteria No selected? Query Text:Check all the applicable criteria. A minimum of two criteria are recommended for diagnosis of either severe or non-severe malnutrition. Malnutrition Related to Morbid Obesity Malnutrition related to morbid obesity No Intervention/Recommendation Comments 1. Monitor NPO status. 2. When medically appropriate, initiate TF with Glucerna 1.2 at 20ml/hr and increarse 10ml /hr q6hr to goal rate of 50ml/ hr continuous. This will provide 1440kcal, 72g protein and 96ml free water, meeting 100% of nutritional needs. 3. Monitor GI function, wt, labs and skin integrity 3. F/U as high risk in 2-3 days, 1/2-1/3 Expected Outcomes/Goals Expected Outcomes/Goals 1. Nutrition support initiated 2. Wt stability, skin to remain intact, labs to approach WNL.
[2018-03-13] MEDS ORDERED: Probiotic Screen MC PRN (15:30)
--- NOTE | 2018-03-13 18:56 | General Progress Note ---
Objective - Results Result Diagrams: 03/13/18 08:05 03/13/18 08:05 Recent Labs: Laboratory Last Values WBC 4.6 Th/cmm (4.8-10.8) L 03/13/18 08:05 RBC 2.74 Mil/cmm (3.80-5.20) L 03/13/18 08:05 Hgb 8.8 gm/dL (12-16) L 03/13/18 08:05 Hct 26.1 % (41.0-60) L 03/13/18 08:05 MCV 95.4 fl (81-100) 03/13/18 08:05 MCH 32.3 pg (27.0-31.0) H 03/13/18 08:05 MCHC Differential 33.8 pg (28.0-36.0) 03/13/18 08:05 RDW 17.3 % (11.5-20.0) 03/13/18 08:05 Plt Count 231 Th/cmm (150-400) 03/13/18 08:05 MPV 7.8 fl 03/13/18 08:05 Neutrophils % 58.3 % (40.0-80.0) 03/13/18 08:05 Lymphocytes % 20.0 % (20.0-50.0) 03/13/18 08:05 Monocytes % 14.1 % (2.0-10.0) H 03/13/18 08:05 Eosinophils % 7.3 % (0.0-5.0) H 03/13/18 08:05 Basophils % 0.3 % (0.0-2.0) 03/13/18 08:05 Specimen Source Arterial 03/12/18 17:02 Sample Site Right Radial 03/12/18 17:02 pH 7.45 (7.35-7.45) 03/12/18 17:02 pCO2 46.0 mmHg (35.0-45.0) H 03/12/18 17:02 pO2 483.0 mmHg (80.0-100.0) H 03/12/18 17:02 HCO3 30.5 mEq/L (20.0-26.0) H 03/12/18 17:02 Base Excess 7.0 mEq/L (-3.0-3.0) H 03/12/18 17:02 O2 Saturation 100.0 % (92.0-100.0) 03/12/18 17:02 Cristofer Test Positive 03/12/18 17:02 Vent Rate 14 03/12/18 17:02 Inspired O2 100 03/12/18 17:02 Tidal Volume 400 03/12/18 17:02 PEEP 7 03/12/18 17:02 Pressure (ins/psv/peep) NA 03/12/18 17:02 Critical Value SH 03/12/18 17:02 Sodium 139 mEq/L (136-145) 03/13/18 08:05 Potassium 3.4 mEq/L (3.5-5.1) L 03/13/18 08:05 Chloride 101 mEq/L (98-107) 03/13/18 08:05 Carbon Dioxide 29.5 mEq/L (21.0-31.0) 03/13/18 08:05 Anion Gap 11.9 (7.0-16.0) 03/13/18 08:05 BUN 15 mg/dL (7-25) 03/13/18 08:05 Creatinine 1.1 mg/dL (0.6-1.2) 03/13/18 08:05 Est GFR ( Amer) > 60.0 ml/min (>90) 03/13/18 08:05 Est GFR (Non-Af Amer) 52.2 ml/min 03/13/18 08:05 BUN/Creatinine Ratio 13.6 03/13/18 08:05 Glucose 200 mg/dL (70-105) H 03/13/18 08:05 POC Glucose 230 MG/DL (70 - 105) H 03/13/18 16:35 Whole Bld Lactic Acid 1.36 mmol/L (0.60-1.99) 03/10/18 17:15 Calcium 8.9 mg/dL (8.6-10.3) 03/13/18 08:05 Total Bilirubin 0.5 mg/dL (0.3-1.0) 03/13/18 08:05 AST 12 U/L (13-39) L 03/13/18 08:05 ALT 7 U/L (7-52) 03/13/18 08:05 Alkaline Phosphatase 68 U/L (34-104) 03/13/18 08:05 Total Protein 6.1 gm/dL (6.0-8.3) 03/13/18 08:05 Albumin 2.9 gm/dL (3.7-5.3) L 03/13/18 08:05 Globulin 3.2 gm/dL 03/13/18 08:05 Albumin/Globulin Ratio 0.9 (1.0-1.8) L 03/13/18 08:05 Vancomycin Trough 20.4 ug/mL (5-10) H 03/12/18 07:50 - Physical Exam Vitals and I&O: Vital Signs Temp 97 F 03/13/18 16:00 Pulse 89 03/13/18 18:00 Resp 15 03/13/18 18:00 BP 121/37 03/13/18 18:00 Pulse Ox 98 03/13/18 18:00 Intake & Output 03/12/18 03/13/18 03/13/18 18:59 06:59 18:59 Intake Total 325 38 9004.667 Output Total 650 1450 Balance 250 -600 -198.333 Weight (lbs) 71.214 kg 68.81 kg Intake: Intake, IV Amount 329 24 7482.667 D5-0.45NS 1,000 ml @ 50 921.667 mls/hr IV .Q20H [facility] Rx#: [id number] Levofloxacin 250mg/50mL 50 250 mg In 50 ml @ 50 mls/ hr IV DAILY@2100 [facility] Rx#: [id number] Vancomycin HCl 0.75 gm In 250 250 Sodium Chloride 0.9% 250 ml @ 165 mls/hr IV Q24H [facility] Rx#:[id number] Other 80 Output: Urine 650 1450 Other: # Bowel Movements 2 1 Stool Characteristics Formed Soft Formed Green Liquid Green Brown Green Weight Source Bedscale Bedscale Active Medications: Current Medications Acetaminophen (Tylenol 650mg/20.3ml Suspension) 650 mg GT Q6H PRN PRN Reason: Pain or Fever >101 Stop: 05/10/18 19:06 Acetaminophen/Hydrocodone Bitart ([place] 5mg/325mg) 1 tab GT Q6H PRN PRN Reason: Pain (Moderate) Stop: 05/10/18 19:06 Albuterol Sulfate (Albuterol 2.5mg/3ml Neb Ud) 2.5 mg HHN PRN PRN PRN Reason: WHEEZING Stop: 05/11/18 08:34 Albuterol/Ipratropium (Duoneb Neb) 3 ml HHN Q4HRT [facility]; Protocol Stop: 05/09/18 22:59 Last Admin: 03/13/18 14:12 Dose: 3 ml Ascorbic Acid (Vitamin C) 500 mg GT DAILY [facility] Stop: 05/11/18 08:59 Last Admin: 03/13/18 09:20 Dose: 500 mg Budesonide (Pulmicort) 0.5 mg HHN BID [facility] Stop: 05/11/18 08:59 Last Admin: 03/13/18 07:24 Dose: 0.5 mg Docusate Sodium (Colace) 100 mg GT Q12HR@0600,1800 [facility] Stop: 05/11/18 07:59 Last Admin: 03/13/18 14:00 Dose: 100 mg Epoetin Teddy (Epogen) 10,000 units SUBQ MWF@1600 [facility] Stop: 05/11/18 15:59 Last Admin: 03/12/18 17:33 Dose: 10,000 units Ferrous Sulfate (Iron) 300 mg GT Q8HR [facility] Stop: 05/11/18 12:59 Last Admin: 03/13/18 17:53 Dose: 300 mg Furosemide (Lasix) 20 mg GT DAILY [facility] Stop: 05/11/18 08:59 Last Admin: 03/13/18 09:19 Dose: Not Given Furosemide (Lasix) 40 mg IVP DAILY [facility] Stop: 03/14/18 17:00 Last Admin: 03/13/18 09:18 Dose: 40 mg Heparin Sodium (Porcine) (Heparin) 5,000 units SUBQ Q12HR [facility] Stop: 05/10/18 20:59 Last Admin: 03/13/18 09:19 Dose: 5,000 units Levofloxacin (Levaquin Pb) 250 mg in 50 mls @ 50 mls/hr IV DAILY@2100 [facility] Stop: 05/10/18 20:59 Last Infusion: 03/12/18 22:45 Dose: Infused Vancomycin HCl 0.75 gm/ Sodium (Chloride) 250 mls @ 165 mls/hr IV Q24H [facility] Stop: 05/10/18 08:59 Last Infusion: 03/13/18 10:50 Dose: Infused Dextrose/Sodium Chloride (D5-0.45ns) 1,000 mls @ 50 mls/hr IV .Q20H [facility] Stop: 05/11/18 14:00 Last Admin: 03/13/18 12:07 Dose: 50 mls/hr Doxycycline Hyclate 100 mg/ (Sodium Chloride) 100 mls @ 100 mls/hr IV Q12H [facility] Stop: 05/12/18 20:59 Insulin Aspart (Novolog Insulin Sliding Scale) 0 units SUBQ Q6HR [facility]; Protocol Stop: 05/10/18 00:00 Last Admin: 03/13/18 17:54 Dose: 4 units Ipratropium [place] (Atrovent Neb 0.5mg/2.5ml) 0.5 mg HHN PRN PRN PRN Reason: Wheezing Stop: 05/10/18 19:06 Last Admin: 03/11/18 20:47 Dose: 0.5 mg Lactobacillus Rhamnosus (Culturelle 15b) 1 each GT DAILY [facility] Stop: 05/11/18 08:59 Last Admin: 03/13/18 09:18 Dose: 1 each Levetiracetam (Keppra) 250 mg GT Q12H [facility] Stop: 05/11/18 08:59 Last Admin: 03/13/18 09:18 Dose: 250 mg Lorazepam (Ativan) 0.5 mg GT Q6HR [facility]; Protocol PRN Reason: Anxiety Stop: 05/10/18 19:06 Miscellaneous (Vancomycin Iv Per Pharmacy) 1 ea PRN PRN PRN Reason: PROTOCOL Stop: 05/09/18 21:52 Miscellaneous (Vte Chemical Prophylaxis Screen/Icu Transfer) 1 ea PRN PRN PRN Reason: PROTOCOL Stop: 05/10/18 15:57 Miscellaneous (Probiotic Screen) 1 ea PRN PRN PRN Reason: PROTOCOL Stop: 05/12/18 15:29 Mupirocin (Bactroban Oint) 1 appl NS BID [facility] Stop: 03/18/18 17:01 Pantoprazole Sodium (Protonix) 40 mg IVP DAILY [facility] Stop: 05/11/18 08:59 Last Admin: 03/13/18 09:18 Dose: 40 mg Potassium Chloride (Klor-Con) 10 meq PO DAILY [facility] Stop: 05/11/18 10:59 Last Admin: 03/13/18 09:18 Dose: 10 meq HEENT: Atraumatic, PERRLA, EOMI Neck: Supple Cardiovascular: Regular rate, Normal S1 Abdomen: Bowel sounds, Soft - Procedures Procedures: Procedures Procedure Code Date EXCISION OF STOMACH, ENDO, DIAGN [id number] 02/09/17 INSERTION OF INFUSION DEV INTO SUP VENA CAVA, PERC APPROACH [id number] 02/09/17 RESPIRATORY VENTILATION, 24-96 CONSECUTIVE HOURS [id number] 03/10/18 TRANSFUSE NONAUT RED BLOOD CELLS IN PERIPH VEIN, PERC 97413Y1 02/09/17 Nutritional Asmnt/Malnutr-PDOC - Dietary Evaluation Malnutrition Findings (Please click <Entered> for more info): Nutritional Asmnt/Malnutrition Start: 03/12/18 14: 11 Text: Status: Complete Freq: Protocol: Document 03/12/18 14:13 DA (Rec: 03/12/18 15:07 DA [email or web address]) Nutritional Asmnt/Malnutrition Patient General Information Nutritional Screening High Risk Consult Diagnosis fever, cellulitis of abdominal wall Pertinent Medical Hx/Surgical Hx Dm, DVT/PE, dementia, down syndrome, resp failure, PEG/ GTube, chronic trach Subjective Information Pt seen resting in bed at time of visit, non-verbal, on vent via trach. 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 Current Diet Order/ Nutrition Support NPO Pertinent Medications vit C, D5-0.45ns, colace, iron , lasix, novolog, novolin, culturelle, levaquin, levothyroxine, protonix, kcl, vancomycin Pertinent Labs 03/12 glucose 232, POC 225-252 03/11 Na 135, BUN 35, Cr 1.3, Glucose 154, POC 166-247 Nutritional Hx/Data Height 1.42 m Height (Calculated Centimeters) 142.2 Current Weight (lbs) 71.214 kg Weight (Calculated Kilograms) 71.2 Weight (Calculated Grams) 99766.0 [place] Body Weight 92 Body Mass Index (BMI) 35.2 Weight Status Obese GI Symptoms Last BM 03/11 Skin Integrity/Comment: rash to abdomen, scar to face, pressure area reddened to buttocks Estimated Nutritional Goals BEE in Kcals: Adj wt of IBW Calories/Kcals/Kg 27-32 adj wt 49kg Kcals Calculated 5247-3855 Protein: Adj wt of IBW Protein g/k.2-1.4 Protein Calculated 59-68 Fluid: ml 1323-1568ml (1ml/kcal) Nutritional Problem 2. Problem Problem inadequate energy intake Etiology GI dysfunction Signs/Symptoms: TF not initiated 1. Problem Problem altered nutrition related labs Etiology hyperglycemia Signs/Symptoms: glucose 232, POC 225-252 on Malnutrition Alert Is there a minimum of two criteria No selected? Query Text:Check all the applicable criteria. A minimum of two criteria are recommended for diagnosis of either severe or non-severe malnutrition. Malnutrition Related to Morbid Obesity Malnutrition related to morbid obesity No Intervention/Recommendation Comments 1. Monitor NPO status. 2. When medically appropriate, initiate TF with Glucerna 1.2 at 20ml/hr and increarse 10ml /hr q6hr to goal rate of 50ml/ hr continuous. This will provide 1440kcal, 72g protein and 96ml free water, meeting 100% of nutritional needs. 3. Monitor GI function, wt, labs and skin integrity 3. F/U as high risk in 2-3 days, 1/2-1/3 Expected Outcomes/Goals Expected Outcomes/Goals 1. Nutrition support initiated 2. Wt stability, skin to remain intact, labs to approach WNL.
[2018-03-14] MEDS: Albuterol/Ipratropium Neb 3 ML AERS HHN SCH ×5 (02:50→23:59)
[2018-03-14] MEDS: Ferrous Sulfate 300 MG/5 ML UDC GT SCH ×3 (04:25→21:04)
[2018-03-14 05:00] LABS: % EOSINOPHILS 3.6 % (0.0-5.0); BASOPHILE ABSOLUTE 0.1 Th/cumm (0-0.2); EOSINOPHILE ABSOLUTE 0.4 Th/cmm (0.1-0.4); HEMOGLOBIN 9.6 gm/dL (12-16); LYMPHOCYTE ABSOLUTE 0.8 Th/cmm (1.5-3.0)
[2018-03-14] MEDS: Docusate Sodium 100 mg/10 mL UD GT SCH (05:12)
[2018-03-14] MEDS: INSULIN ASPART SLIDING SCALE 100 UNITS/ML UNIT SUBQ SCH ×4 (05:13→23:29)
[2018-03-14 05:18] LABS: % BASOPHILS 0.5 % (0.0-2.0); % LYMPHOCYTES 7.3 % (20.0-50.0); % MONOCYTES 8.8 % (2.0-10.0); % NEUTROPHILS 79.8 % (40.0-80.0); HEMATOCRIT 29.2 % (41.0-60); MEAN CELL VOLUME 95.7 fl (81-100); MEAN CORPUSCULAR HEMOGLOBIN 31.5 pg (27.0-31.0); MEAN CORPUSCULAR HGB CONC 32.9 pg (28.0-36.0); MEAN PLATELET VOLUME 8.5 fl; NEUTROPHILE ABSOLUTE 8.8 Th/cmm (1.8-8.0); PLATELET COUNT 256 Th/cmm (150-400); RED BLOOD COUNT 3.05 Mil/cmm (3.80-5.20); RED CELL DISTRIBUTION WIDTH 18.1 % (11.5-20.0)
[2018-03-14] MEDS: D5-0.45NS 1,000 ML IV SCH (05:22)
[2018-03-14 05:28] LABS: ALB/GLOB RATIO 0.7 (1.0-1.8); ALBUMIN 2.9 gm/dL (3.7-5.3); ANION GAP 12.3 (7.0-16.0); BILIRUBIN,TOTAL 0.6 mg/dL (0.3-1.0); CALCIUM SERUM 8.6 mg/dL (8.6-10.3); CARBON DIOXIDE 30.2 mEq/L (21.0-31.0); CREATININE - SERUM 1.2 mg/dL (0.6-1.2); GFR AFRICAN-AMERICAN 57.1 ml/min (>90); GFR NON AFRICAN-AMERICAN 47.2 ml/min; POTASSIUM SERUM 3.5 mEq/L (3.5-5.1); TOTAL PROTEIN,SERUM 6.8 gm/dL (6.0-8.3)
[2018-03-14 07:04] LABS: WHITE BLOOD COUNT 11.1 Th/cmm (4.8-10.8)
[2018-03-14 07:10] LABS: BAND NEUTROPHILE 0 % (0-10); LYMPHOCYTE 7 % (20-50); MONOCYTE 9 % (2-10); NEUTROPHILS 80 % (40-80)
[2018-03-14 07:11] LABS: BASOPHIL 0 % (0-3); EOSINOPHIL 4 % (0-5)
[2018-03-14] MEDS: Budesonide 0.5 Mg/2 mL Ud HHN SCH ×3 (07:25→19:53)
[2018-03-14] MEDS: Lactobacillus Rhamnosus GG 15 Billion CFU CAP.SPRINK GT SCH (09:25)
[2018-03-14] MEDS: Potassium Chloride 10 mEq ER Tab PO SCH (09:25)
[2018-03-14] MEDS: Levetiracetam 500 mg/5mL 5mL UDSyr *for ORAL USE ONLY GT SCH ×2 (09:25→21:05)
--- NOTE | 2018-03-14 14:20 | GI Progress Note ---
Subjective - Review of Systems Service Date: 03/14/18 Subjective: GI NOTE VIKASH GT FEEDS 10 ML/HR. NO LEAK. Objective - Results Result Diagrams: 03/14/18 04:05 03/14/18 04:05 Recent Labs: Laboratory Last Values WBC 11.1 Th/cmm (4.8-10.8) H D 03/14/18 04:05 RBC 3.05 Mil/cmm (3.80-5.20) L 03/14/18 04:05 Hgb 9.6 gm/dL (12-16) L 03/14/18 04:05 Hct 29.2 % (41.0-60) L 03/14/18 04:05 MCV 95.7 fl (81-100) 03/14/18 04:05 MCH 31.5 pg (27.0-31.0) H 03/14/18 04:05 MCHC Differential 32.9 pg (28.0-36.0) 03/14/18 04:05 RDW 18.1 % (11.5-20.0) 03/14/18 04:05 Plt Count 256 Th/cmm (150-400) 03/14/18 04:05 MPV 8.5 fl 03/14/18 04:05 Neutrophils % 79.8 % (40.0-80.0) 03/14/18 04:05 Band Neutrophils % 0 % (0-10) 03/14/18 04:05 Lymphocytes % 7.3 % (20.0-50.0) L 03/14/18 04:05 Monocytes % 8.8 % (2.0-10.0) 03/14/18 04:05 Eosinophils % 3.6 % (0.0-5.0) 03/14/18 04:05 Basophils % 0.5 % (0.0-2.0) 03/14/18 04:05 Neutrophils (Manual) 80 % (40-80) 03/14/18 04:05 Lymphocytes 7 % (20-50) L 03/14/18 04:05 Monocytes 9 % (2-10) 03/14/18 04:05 Eosinophils 4 % (0-5) 03/14/18 04:05 Basophils 0 % (0-3) 03/14/18 04:05 Specimen Source Arterial 03/12/18 17:02 Sample Site Right Radial 03/12/18 17:02 pH 7.45 (7.35-7.45) 03/12/18 17:02 pCO2 46.0 mmHg (35.0-45.0) H 03/12/18 17:02 pO2 483.0 mmHg (80.0-100.0) H 03/12/18 17:02 HCO3 30.5 mEq/L (20.0-26.0) H 03/12/18 17:02 Base Excess 7.0 mEq/L (-3.0-3.0) H 03/12/18 17:02 O2 Saturation 100.0 % (92.0-100.0) 03/12/18 17:02 Cristofer Test Positive 03/12/18 17:02 Vent Rate 14 03/12/18 17:02 Inspired O2 100 03/12/18 17:02 Tidal Volume 400 03/12/18 17:02 PEEP 7 03/12/18 17:02 Pressure (ins/psv/peep) NA 03/12/18 17:02 Critical Value SH 03/12/18 17:02 Sodium 138 mEq/L (136-145) 03/14/18 04:05 Potassium 3.5 mEq/L (3.5-5.1) 03/14/18 04:05 Chloride 99 mEq/L (98-107) 03/14/18 04:05 Carbon Dioxide 30.2 mEq/L (21.0-31.0) 03/14/18 04:05 Anion Gap 12.3 (7.0-16.0) 03/14/18 04:05 BUN 13 mg/dL (7-25) 03/14/18 04:05 Creatinine 1.2 mg/dL (0.6-1.2) 03/14/18 04:05 Est GFR ( Amer) 57.1 ml/min (>90) 03/14/18 04:05 Est GFR (Non-Af Amer) 47.2 ml/min 03/14/18 04:05 BUN/Creatinine Ratio 10.8 03/14/18 04:05 Glucose 225 mg/dL (70-105) H 03/14/18 04:05 POC Glucose 255 MG/DL (70 - 105) H 03/14/18 11:36 Whole Bld Lactic Acid 1.36 mmol/L (0.60-1.99) 03/10/18 17:15 Calcium 8.6 mg/dL (8.6-10.3) 03/14/18 04:05 Total Bilirubin 0.6 mg/dL (0.3-1.0) 03/14/18 04:05 AST 13 U/L (13-39) 03/14/18 04:05 ALT 8 U/L (7-52) 03/14/18 04:05 Alkaline Phosphatase 84 U/L (34-104) 03/14/18 04:05 Total Protein 6.8 gm/dL (6.0-8.3) 03/14/18 04:05 Albumin 2.9 gm/dL (3.7-5.3) L 03/14/18 04:05 Globulin 3.9 gm/dL 03/14/18 04:05 Albumin/Globulin Ratio 0.7 (1.0-1.8) L 03/14/18 04:05 Vancomycin Trough 20.1 ug/mL (5-10) H 03/14/18 08:00 - Physical Exam Vitals and I&O: Vital Signs Temp 97 F 03/14/18 08:00 Pulse 90 03/14/18 13:15 Resp 16 03/14/18 10:00 BP 114/31 03/14/18 10:00 Pulse Ox 93 03/14/18 13:15 Intake & Output 03/13/18 03/14/18 03/14/18 18:59 06:59 18:59 Intake Total 3440.253 4546.5 Output Total 1450 1860 Balance -198.333 -447.5 Weight (lbs) 68.81 kg 69.201 kg Intake: Intake, IV Amount 1171.667 962.5 D5-0.45NS 1,000 ml @ 50 921.667 862.5 mls/hr IV .Q20H [facility] Rx#: [id number] Doxycycline Hyclate 100 100 mg In Sodium Chloride 0.9 % 100 ml @ 100 mls/hr IV Q12H [facility] Rx#:[id number] Vancomycin HCl 0.75 gm In 250 Sodium Chloride 0.9% 250 ml @ 165 mls/hr IV Q24H [facility] Rx#:[id number] Tube Feeding 180 Other 80 270 Output: Urine 1450 1860 Other: # Bowel Movements 1 1 Stool Characteristics Formed Soft Soft Green Brown Brown Weight Source Bedscale Bedscale Active Medications: Current Medications Acetaminophen (Tylenol 650mg/20.3ml Suspension) 650 mg GT Q6H PRN PRN Reason: Pain or Fever >101 Stop: 05/10/18 19:06 Acetaminophen/Hydrocodone Bitart ([place] 5mg/325mg) 1 tab GT Q6H PRN PRN Reason: Pain (Moderate) Stop: 05/10/18 19:06 Albuterol Sulfate (Albuterol 2.5mg/3ml Neb Ud) 2.5 mg HHN PRN PRN PRN Reason: WHEEZING Stop: 05/11/18 08:34 Albuterol/Ipratropium (Duoneb Neb) 3 ml HHN Q4HRT [facility]; Protocol Stop: 05/09/18 22:59 Last Admin: 03/14/18 10:00 Dose: 3 ml Ascorbic Acid (Vitamin C) 500 mg GT DAILY [facility] Stop: 05/11/18 08:59 Last Admin: 03/14/18 09:25 Dose: 500 mg Budesonide (Pulmicort) 0.5 mg HHN BID [facility] Stop: 05/11/18 08:59 Last Admin: 03/14/18 07:25 Dose: 0.5 mg Docusate Sodium (Colace) 100 mg GT Q12HR@0600,1800 [facility] Stop: 05/11/18 07:59 Last Admin: 03/14/18 05:12 Dose: 100 mg Epoetin Teddy (Epogen) 10,000 units SUBQ MWF@1600 [facility] Stop: 05/11/18 15:59 Last Admin: 03/12/18 17:33 Dose: 10,000 units Ferrous Sulfate (Iron) 300 mg GT Q8HR [facility] Stop: 05/11/18 12:59 Last Admin: 03/14/18 04:25 Dose: 300 mg Furosemide (Lasix) 40 mg IVP DAILY [facility] Stop: 03/14/18 17:00 Last Admin: 03/14/18 09:26 Dose: 40 mg Heparin Sodium (Porcine) (Heparin) 5,000 units SUBQ Q12HR [facility] Stop: 05/10/18 20:59 Last Admin: 03/14/18 09:26 Dose: 5,000 units Vancomycin HCl 0.75 gm/ Sodium (Chloride) 250 mls @ 165 mls/hr IV Q24H [facility] Stop: 05/10/18 08:59 Last Admin: 03/14/18 10:15 Dose: 165 mls/hr Dextrose/Sodium Chloride (D5-0.45ns) 1,000 mls @ 50 mls/hr IV .Q20H [facility] Stop: 05/11/18 14:00 Last Admin: 03/14/18 05:22 Dose: 50 mls/hr Doxycycline Hyclate 100 mg/ (Sodium Chloride) 100 mls @ 100 mls/hr IV Q12H [facility] Stop: 05/12/18 20:59 Last Admin: 03/14/18 09:24 Dose: 100 mls/hr Insulin Aspart (Novolog Insulin Sliding Scale) 0 units SUBQ Q6HR [facility]; Protocol Stop: 05/10/18 00:00 Last Admin: 03/14/18 05:13 Dose: 6 units Ipratropium [place] (Atrovent Neb 0.5mg/2.5ml) 0.5 mg HHN PRN PRN PRN Reason: Wheezing Stop: 05/10/18 19:06 Last Admin: 03/11/18 20:47 Dose: 0.5 mg Lactobacillus Rhamnosus (Culturelle 15b) 1 each GT DAILY [facility] Stop: 05/11/18 08:59 Last Admin: 03/14/18 09:25 Dose: 1 each Levetiracetam (Keppra) 250 mg GT Q12H [facility] Stop: 05/11/18 08:59 Last Admin: 03/14/18 09:25 Dose: 250 mg Lorazepam (Ativan) 0.5 mg GT Q6HR PRN; Protocol PRN Reason: Anxiety Stop: 05/10/18 19:06 Miscellaneous (Vancomycin Iv Per Pharmacy) 1 ea MC PRN PRN PRN Reason: PROTOCOL Stop: 05/09/18 21:52 Miscellaneous (Vte Chemical Prophylaxis Screen/Icu Transfer) 1 ea MC PRN PRN PRN Reason: PROTOCOL Stop: 05/10/18 15:57 Miscellaneous (Probiotic Screen) 1 ea MC PRN PRN PRN Reason: PROTOCOL Stop: 05/12/18 15:29 Mupirocin (Bactroban Oint) 1 appl NS BID [facility] Stop: 03/18/18 17:01 Last Admin: 01/02/19 09:35 Dose: 1 appl Pantoprazole Sodium (Protonix) 40 mg IVP DAILY [facility] Stop: 05/11/18 08:59 Last Admin: 03/14/18 09:26 Dose: 40 mg Potassium Chloride (Klor-Con) 10 meq PO DAILY [facility] Stop: 05/11/18 10:59 Last Admin: 03/14/18 09:25 Dose: 10 meq General: No acute distress Neck: Supple, Other (TRACH) Cardiovascular: Regular rate Abdomen: Bowel sounds, Soft, Distended (MILD), Other (INTACT GT) - Procedures Procedures: Procedures Procedure Code Date EXCISION OF STOMACH, ENDO, DIAGN [id number] 02/09/17 INSERTION OF INFUSION DEV INTO SUP VENA CAVA, PERC APPROACH [id number] 02/09/17 RESPIRATORY VENTILATION, 24-96 CONSECUTIVE HOURS [id number] 03/10/18 TRANSFUSE NONAUT RED BLOOD CELLS IN PERIPH VEIN, PERC 96592M7 02/09/17 Assessment/Plan - Assessment Assessment: IMPRESSION: 1. G tube site cellulitis 2. 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 3. VDRF - trach. 4. Mild abd distension. RECS: -continue tube feed advancement slowly as tolerated. -s/p overinflation of GT internal balloon to try and prevent leakage -TPN until tolerating tube feeds. -wound care.
[2018-03-14] MEDS: Epoetin Alfa 20000 Units/mL Vial SUBQ SCH (15:26)
--- NOTE | 2018-03-14 15:28 | General Progress Note ---
Subjective - Review of Systems Events since last encounter: pt. with leaking g-tube, trach., sepsis, improving Objective - Results Result Diagrams: 03/15/18 07:15 03/15/18 07:15 Recent Labs: Laboratory Last Values WBC 11.1 Th/cmm (4.8-10.8) H D 03/14/18 04:05 RBC 3.05 Mil/cmm (3.80-5.20) L 03/14/18 04:05 Hgb 9.6 gm/dL (12-16) L 03/14/18 04:05 Hct 29.2 % (41.0-60) L 03/14/18 04:05 MCV 95.7 fl (81-100) 03/14/18 04:05 MCH 31.5 pg (27.0-31.0) H 03/14/18 04:05 MCHC Differential 32.9 pg (28.0-36.0) 03/14/18 04:05 RDW 18.1 % (11.5-20.0) 03/14/18 04:05 Plt Count 256 Th/cmm (150-400) 03/14/18 04:05 MPV 8.5 fl 03/14/18 04:05 Neutrophils % 79.8 % (40.0-80.0) 03/14/18 04:05 Band Neutrophils % 0 % (0-10) 03/14/18 04:05 Lymphocytes % 7.3 % (20.0-50.0) L 03/14/18 04:05 Monocytes % 8.8 % (2.0-10.0) 03/14/18 04:05 Eosinophils % 3.6 % (0.0-5.0) 03/14/18 04:05 Basophils % 0.5 % (0.0-2.0) 03/14/18 04:05 Neutrophils (Manual) 80 % (40-80) 03/14/18 04:05 Lymphocytes 7 % (20-50) L 03/14/18 04:05 Monocytes 9 % (2-10) 03/14/18 04:05 Eosinophils 4 % (0-5) 03/14/18 04:05 Basophils 0 % (0-3) 03/14/18 04:05 Specimen Source Arterial 03/12/18 17:02 Sample Site Right Radial 03/12/18 17:02 pH 7.45 (7.35-7.45) 03/12/18 17:02 pCO2 46.0 mmHg (35.0-45.0) H 03/12/18 17:02 pO2 483.0 mmHg (80.0-100.0) H 03/12/18 17:02 HCO3 30.5 mEq/L (20.0-26.0) H 03/12/18 17:02 Base Excess 7.0 mEq/L (-3.0-3.0) H 03/12/18 17:02 O2 Saturation 100.0 % (92.0-100.0) 03/12/18 17:02 Cristofer Test Positive 03/12/18 17:02 Vent Rate 14 03/12/18 17:02 Inspired O2 100 03/12/18 17:02 Tidal Volume 400 03/12/18 17:02 PEEP 7 03/12/18 17:02 Pressure (ins/psv/peep) NA 03/12/18 17:02 Critical Value SH 03/12/18 17:02 Sodium 138 mEq/L (136-145) 03/14/18 04:05 Potassium 3.5 mEq/L (3.5-5.1) 03/14/18 04:05 Chloride 99 mEq/L (98-107) 03/14/18 04:05 Carbon Dioxide 30.2 mEq/L (21.0-31.0) 03/14/18 04:05 Anion Gap 12.3 (7.0-16.0) 03/14/18 04:05 BUN 13 mg/dL (7-25) 03/14/18 04:05 Creatinine 1.2 mg/dL (0.6-1.2) 03/14/18 04:05 Est GFR ( Amer) 57.1 ml/min (>90) 03/14/18 04:05 Est GFR (Non-Af Amer) 47.2 ml/min 03/14/18 04:05 BUN/Creatinine Ratio 10.8 03/14/18 04:05 Glucose 225 mg/dL (70-105) H 03/14/18 04:05 POC Glucose 255 MG/DL (70 - 105) H 03/14/18 11:36 Whole Bld Lactic Acid 1.36 mmol/L (0.60-1.99) 03/10/18 17:15 Calcium 8.6 mg/dL (8.6-10.3) 03/14/18 04:05 Total Bilirubin 0.6 mg/dL (0.3-1.0) 03/14/18 04:05 AST 13 U/L (13-39) 03/14/18 04:05 ALT 8 U/L (7-52) 03/14/18 04:05 Alkaline Phosphatase 84 U/L (34-104) 03/14/18 04:05 Total Protein 6.8 gm/dL (6.0-8.3) 03/14/18 04:05 Albumin 2.9 gm/dL (3.7-5.3) L 03/14/18 04:05 Globulin 3.9 gm/dL 03/14/18 04:05 Albumin/Globulin Ratio 0.7 (1.0-1.8) L 03/14/18 04:05 Vancomycin Trough 20.1 ug/mL (5-10) H 03/14/18 08:00 - Physical Exam Vitals and I&O: Vital Signs Temp 98.5 F 03/14/18 12:00 Pulse 83 03/14/18 14:00 Resp 16 03/14/18 14:00 BP 105/42 03/14/18 14:00 Pulse Ox 98 03/14/18 14:00 Intake & Output 03/13/18 03/14/18 03/14/18 18:59 06:59 18:59 Intake Total 1108.950 8562.5 100 Output Total 1450 1860 Balance -198.333 -447.5 100 Weight (lbs) 68.81 kg 69.201 kg Intake: Intake, IV Amount 1171.667 962.5 100 D5-0.45NS 1,000 ml @ 50 921.667 862.5 mls/hr IV .Q20H [facility] Rx#: [id number] Doxycycline Hyclate 100 100 100 mg In Sodium Chloride 0.9 % 100 ml @ 100 mls/hr IV Q12H [facility] Rx#:[id number] Vancomycin HCl 0.75 gm In 250 Sodium Chloride 0.9% 250 ml @ 165 mls/hr IV Q24H [facility] Rx#:[id number] Tube Feeding 180 Other 80 270 Output: Urine 1450 1860 Other: # Bowel Movements 1 1 Stool Characteristics Formed Soft Soft Green Brown Brown Weight Source Bedscale Bedscale Active Medications: Current Medications Acetaminophen (Tylenol 650mg/20.3ml Suspension) 650 mg GT Q6H PRN PRN Reason: Pain or Fever >101 Stop: 05/10/18 19:06 Acetaminophen/Hydrocodone Bitart ([place] 5mg/325mg) 1 tab GT Q6H PRN PRN Reason: Pain (Moderate) Stop: 05/10/18 19:06 Albuterol Sulfate (Albuterol 2.5mg/3ml Neb Ud) 2.5 mg HHN PRN PRN PRN Reason: WHEEZING Stop: 05/11/18 08:34 Albuterol/Ipratropium (Duoneb Neb) 3 ml HHN Q4HRT [facility]; Protocol Stop: 05/09/18 22:59 Last Admin: 03/14/18 10:00 Dose: 3 ml Ascorbic Acid (Vitamin C) 500 mg GT DAILY [facility] Stop: 05/11/18 08:59 Last Admin: 03/14/18 09:25 Dose: 500 mg Budesonide (Pulmicort) 0.5 mg HHN BID [facility] Stop: 05/11/18 08:59 Last Admin: 03/14/18 07:25 Dose: 0.5 mg Docusate Sodium (Colace) 100 mg GT Q12HR@0600,1800 [facility] Stop: 05/11/18 07:59 Last Admin: 03/14/18 05:12 Dose: 100 mg Epoetin Teddy (Epogen) 10,000 units SUBQ MWF@1600 [facility] Stop: 05/11/18 15:59 Last Admin: 03/14/18 15:26 Dose: 10,000 units Ferrous Sulfate (Iron) 300 mg GT Q8HR [facility] Stop: 05/11/18 12:59 Last Admin: 03/14/18 14:00 Dose: 300 mg Furosemide (Lasix) 40 mg IVP DAILY [facility] Stop: 03/14/18 17:00 Last Admin: 03/14/18 09:26 Dose: 40 mg Heparin Sodium (Porcine) (Heparin) 5,000 units SUBQ Q12HR [facility] Stop: 05/10/18 20:59 Last Admin: 03/14/18 09:26 Dose: 5,000 units Vancomycin HCl 0.75 gm/ Sodium (Chloride) 250 mls @ 165 mls/hr IV Q24H [facility] Stop: 05/10/18 08:59 Last Admin: 03/14/18 10:15 Dose: 165 mls/hr Dextrose/Sodium Chloride (D5-0.45ns) 1,000 mls @ 50 mls/hr IV .Q20H [facility] Stop: 05/11/18 14:00 Last Admin: 03/14/18 05:22 Dose: 50 mls/hr Doxycycline Hyclate 100 mg/ (Sodium Chloride) 100 mls @ 100 mls/hr IV Q12H [facility] Stop: 05/12/18 20:59 Last Infusion: 03/14/18 10:25 Dose: Infused Insulin Aspart (Novolog Insulin Sliding Scale) 0 units SUBQ Q6HR [facility]; Protocol Stop: 05/10/18 00:00 Last Admin: 03/14/18 15:18 Dose: 6 units Ipratropium [place] (Atrovent Neb 0.5mg/2.5ml) 0.5 mg HHN PRN PRN PRN Reason: Wheezing Stop: 05/10/18 19:06 Last Admin: 03/11/18 20:47 Dose: 0.5 mg Lactobacillus Rhamnosus (Culturelle 15b) 1 each GT DAILY [facility] Stop: 05/11/18 08:59 Last Admin: 03/14/18 09:25 Dose: 1 each Levetiracetam (Keppra) 250 mg GT Q12H [facility] Stop: 05/11/18 08:59 Last Admin: 03/14/18 09:25 Dose: 250 mg Lorazepam (Ativan) 0.5 mg GT Q6HR PRN; Protocol PRN Reason: Anxiety Stop: 05/10/18 19:06 Miscellaneous (Vancomycin Iv Per Pharmacy) 1 ea MC PRN PRN PRN Reason: PROTOCOL Stop: 05/09/18 21:52 Miscellaneous (Vte Chemical Prophylaxis Screen/Icu Transfer) 1 ea MC PRN PRN PRN Reason: PROTOCOL Stop: 05/10/18 15:57 Miscellaneous (Probiotic Screen) 1 ea MC PRN PRN PRN Reason: PROTOCOL Stop: 05/12/18 15:29 Mupirocin (Bactroban Oint) 1 appl NS BID [facility] Stop: 03/18/18 17:01 Last Admin: 03/14/18 09:35 Dose: 1 appl Pantoprazole Sodium (Protonix) 40 mg IVP DAILY [facility] Stop: 05/11/18 08:59 Last Admin: 03/14/18 09:26 Dose: 40 mg Potassium Chloride (Klor-Con) 10 meq PO DAILY [facility] Stop: 05/11/18 10:59 Last Admin: 03/14/18 09:25 Dose: 10 meq General: Alert, No acute distress HEENT: Atraumatic, PERRLA, EOMI Neck: Supple, Other (TRACH) Cardiovascular: Regular rate Abdomen: Bowel sounds, Soft, Distended (MILD), Other (INTACT GT) - Procedures Procedures: Procedures Procedure Code Date EXCISION OF STOMACH, ENDO, DIAGN [id number] 02/09/17 INSERTION OF INFUSION DEV INTO SUP VENA CAVA, PERC APPROACH [id number] 02/09/17 RESPIRATORY VENTILATION, 24-96 CONSECUTIVE HOURS [id number] 03/10/18 TRANSFUSE NONAUT RED BLOOD CELLS IN PERIPH VEIN, PERC 33883P2 02/09/17 Assessment/Plan - Assessment Assessment: g-tube cellulitis sepsis fever resp. failure s/p trach. s/p endoscopic gastrostomy h/o dvt h/o PE dementia down syndrome - Plan Plan: cpm Nutritional Asmnt/Malnutr-PDOC - Dietary Evaluation Malnutrition Findings (Please click <Entered> for more info): Nutritional Asmnt/Malnutrition Start: 03/12/18 14: 11 Text: Status: Complete Freq: Protocol: Document 03/12/18 14:13 LCANOOPG (Rec: 03/12/18 15:07 [email or web address] [email or web address]) Nutritional Asmnt/Malnutrition Patient General Information Nutritional Screening High Risk Consult Diagnosis fever, cellulitis of abdominal wall Pertinent Medical Hx/Surgical Hx Dm, DVT/PE, dementia, down syndrome, resp failure, PEG/ GTube, chronic trach Subjective Information Pt seen resting in bed at time of visit, non-verbal, on vent via trach. 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 Current Diet Order/ Nutrition Support NPO Pertinent Medications vit C, D5-0.45ns, colace, iron , lasix, novolog, novolin, culturelle, levaquin, levothyroxine, protonix, kcl, vancomycin Pertinent Labs 03/12 glucose 232, POC 225-252 03/11 Na 135, BUN 35, Cr 1.3, Glucose 154, POC 166-247 Nutritional Hx/Data Height 1.42 m Height (Calculated Centimeters) 142.2 Current Weight (lbs) 71.214 kg Weight (Calculated Kilograms) 71.2 Weight (Calculated Grams) 74872.0 [place] Body Weight 92 Body Mass Index (BMI) 35.2 Weight Status Obese GI Symptoms Last BM 03/11 Skin Integrity/Comment: rash to abdomen, scar to face, pressure area reddened to buttocks Estimated Nutritional Goals BEE in Kcals: Adj wt of IBW Calories/Kcals/Kg 27-32 adj wt 49kg Kcals Calculated 2741-2062 Protein: Adj wt of IBW Protein g/k.2-1.4 Protein Calculated 59-68 Fluid: ml 1323-1568ml (1ml/kcal) Nutritional Problem 2. Problem Problem inadequate energy intake Etiology GI dysfunction Signs/Symptoms: TF not initiated 1. Problem Problem altered nutrition related labs Etiology hyperglycemia Signs/Symptoms: glucose 232, POC 225-252 on Malnutrition Alert Is there a minimum of two criteria No selected? Query Text:Check all the applicable criteria. A minimum of two criteria are recommended for diagnosis of either severe or non-severe malnutrition. Malnutrition Related to Morbid Obesity Malnutrition related to morbid obesity No Intervention/Recommendation Comments 1. Monitor NPO status. 2. When medically appropriate, initiate TF with Glucerna 1.2 at 20ml/hr and increarse 10ml /hr q6hr to goal rate of 50ml/ hr continuous. This will provide 1440kcal, 72g protein and 96ml free water, meeting 100% of nutritional needs. 3. Monitor GI function, wt, labs and skin integrity 3. F/U as high risk in 2-3 days, 1/2-1/3 Expected Outcomes/Goals Expected Outcomes/Goals 1. Nutrition support initiated 2. Wt stability, skin to remain intact, labs to approach WNL.
--- NOTE | 2018-03-14 17:10 | Progress Notes ---
DATE: 03/14/2018 SURGICAL PROGRESS NOTE TIME: 01:21 p.m. OBJECTIVE: VITAL SIGNS: The patient is afebrile. Vital signs otherwise stable. GENERAL: She is resting in bed comfortably, in no acute distress. She is mentally retarded. She has a tracheostomy tube in place. CHEST: Clear to auscultation bilaterally. HEART: Regular rate. ABDOMEN: Soft, nontender, nondistended. She has a gastrostomy tube in place. She has a mild improving cellulitis with no fluctuance. There is no significant drainage from around the G-tube site. NEUROVASCULAR: Otherwise unchanged. EXTREMITIES: Otherwise unchanged. The patient is restarted on tube feeds at the 10 mL per hour. No leak as described above. LABORATORY DATA: White blood cell count today is 11.1, H and H is 9.6 and 29.2, platelet count 256. The glucose 225 and 259, albumin 2.9. The patient is on Colace, iron sulfate, Lasix, heparin 5000 units subcutaneous every 12 hours, insulin, Protonix, and vancomycin. IMAGING TESTS: CT of the abdomen and pelvis revealed bilateral interstitial infiltrates, small effusions, cholelithiasis. A gastrostomy tube in the stomach, subcutaneous edema, and soft tissue swelling at the gastrostomy tube site placement. Chest x-ray done shows congestion and peribronchial infiltrates bilaterally. IMPRESSION AND PLAN: Overall stable at this time. A new gastrostomy tube placed. No significant leaking from around the G-tube site. The cellulitis of the abdominal wall has improved. The patient was restarted on tube feeds and tolerating this well, can advance to goal rate as tolerates. Check residuals. The patient is currently still on antibiotics. The patient has mild leukocytosis. CT abdomen and pelvis reviewed. No evidence of ileus or bowel obstruction. The gastrostomy tube seems to be in place. [facility]# [id number]
--- NOTE | 2018-03-14 19:50 | Infectious Disease Prog Note ---
Infectious Disease Subjective - Review of Systems Service Date: 03/14/18 Subjective: no fever Infectious Disease Objective - Results Result Diagrams: 03/14/18 04:05 03/14/18 04:05 Recent Labs: Laboratory Last Values WBC 11.1 Th/cmm (4.8-10.8) H D 03/14/18 04:05 RBC 3.05 Mil/cmm (3.80-5.20) L 03/14/18 04:05 Hgb 9.6 gm/dL (12-16) L 03/14/18 04:05 Hct 29.2 % (41.0-60) L 03/14/18 04:05 MCV 95.7 fl (81-100) 03/14/18 04:05 MCH 31.5 pg (27.0-31.0) H 03/14/18 04:05 MCHC Differential 32.9 pg (28.0-36.0) 03/14/18 04:05 RDW 18.1 % (11.5-20.0) 03/14/18 04:05 Plt Count 256 Th/cmm (150-400) 03/14/18 04:05 MPV 8.5 fl 03/14/18 04:05 Neutrophils % 79.8 % (40.0-80.0) 03/14/18 04:05 Band Neutrophils % 0 % (0-10) 03/14/18 04:05 Lymphocytes % 7.3 % (20.0-50.0) L 03/14/18 04:05 Monocytes % 8.8 % (2.0-10.0) 03/14/18 04:05 Eosinophils % 3.6 % (0.0-5.0) 03/14/18 04:05 Basophils % 0.5 % (0.0-2.0) 03/14/18 04:05 Neutrophils (Manual) 80 % (40-80) 03/14/18 04:05 Lymphocytes 7 % (20-50) L 03/14/18 04:05 Monocytes 9 % (2-10) 03/14/18 04:05 Eosinophils 4 % (0-5) 03/14/18 04:05 Basophils 0 % (0-3) 03/14/18 04:05 Specimen Source Arterial 03/12/18 17:02 Sample Site Right Radial 03/12/18 17:02 pH 7.45 (7.35-7.45) 03/12/18 17:02 pCO2 46.0 mmHg (35.0-45.0) H 03/12/18 17:02 pO2 483.0 mmHg (80.0-100.0) H 03/12/18 17:02 HCO3 30.5 mEq/L (20.0-26.0) H 03/12/18 17:02 Base Excess 7.0 mEq/L (-3.0-3.0) H 03/12/18 17:02 O2 Saturation 100.0 % (92.0-100.0) 03/12/18 17:02 Cristofer Test Positive 03/12/18 17:02 Vent Rate 14 03/12/18 17:02 Inspired O2 100 03/12/18 17:02 Tidal Volume 400 03/12/18 17:02 PEEP 7 03/12/18 17:02 Pressure (ins/psv/peep) NA 03/12/18 17:02 Critical Value SH 03/12/18 17:02 Sodium 138 mEq/L (136-145) 03/14/18 04:05 Potassium 3.5 mEq/L (3.5-5.1) 03/14/18 04:05 Chloride 99 mEq/L (98-107) 03/14/18 04:05 Carbon Dioxide 30.2 mEq/L (21.0-31.0) 03/14/18 04:05 Anion Gap 12.3 (7.0-16.0) 03/14/18 04:05 BUN 13 mg/dL (7-25) 03/14/18 04:05 Creatinine 1.2 mg/dL (0.6-1.2) 03/14/18 04:05 Est GFR ( Amer) 57.1 ml/min (>90) 03/14/18 04:05 Est GFR (Non-Af Amer) 47.2 ml/min 03/14/18 04:05 BUN/Creatinine Ratio 10.8 03/14/18 04:05 Glucose 225 mg/dL (70-105) H 03/14/18 04:05 POC Glucose 255 MG/DL (70 - 105) H 03/14/18 11:36 Whole Bld Lactic Acid 1.36 mmol/L (0.60-1.99) 03/10/18 17:15 Calcium 8.6 mg/dL (8.6-10.3) 03/14/18 04:05 Total Bilirubin 0.6 mg/dL (0.3-1.0) 03/14/18 04:05 AST 13 U/L (13-39) 03/14/18 04:05 ALT 8 U/L (7-52) 03/14/18 04:05 Alkaline Phosphatase 84 U/L (34-104) 03/14/18 04:05 Total Protein 6.8 gm/dL (6.0-8.3) 03/14/18 04:05 Albumin 2.9 gm/dL (3.7-5.3) L 03/14/18 04:05 Globulin 3.9 gm/dL 03/14/18 04:05 Albumin/Globulin Ratio 0.7 (1.0-1.8) L 03/14/18 04:05 Vancomycin Trough 20.1 ug/mL (5-10) H 03/14/18 08:00 - Physical Exam Vitals and I&O: Vital Signs Temp 97.6 F 03/14/18 16:00 Pulse 88 03/14/18 19:00 Resp 25 03/14/18 19:00 BP 115/29 03/14/18 19:00 Pulse Ox 95 03/14/18 19:00 Intake & Output 03/14/18 03/14/18 03/15/18 06:59 18:59 06:59 Intake Total 1412.5 350 270 Output Total 1860 1400 Balance -447.5 350 -1130 Weight (lbs) 69.201 kg 68.946 kg Intake: Intake, IV Amount 962.5 350 D5-0.45NS 1,000 ml @ 50 862.5 mls/hr IV .Q20H [facility] Rx#: [id number] Doxycycline Hyclate 100 100 100 mg In Sodium Chloride 0.9 % 100 ml @ 100 mls/hr IV Q12H [facility] Rx#:[id number] Vancomycin HCl 0.75 gm In 250 Sodium Chloride 0.9% 250 ml @ 165 mls/hr IV Q24H [facility] Rx#:[id number] Tube Feeding 180 120 Other 270 150 Output: Urine 1860 1400 Other: # Bowel Movements 1 1 Stool Characteristics Soft Soft Brown Brown Weight Source Bedscale Bedscale Active Medications: Current Medications Acetaminophen (Tylenol 650mg/20.3ml Suspension) 650 mg GT Q6H PRN PRN Reason: Pain or Fever >101 Stop: 05/10/18 19:06 Acetaminophen/Hydrocodone Bitart ([place] 5mg/325mg) 1 tab GT Q6H PRN PRN Reason: Pain (Moderate) Stop: 05/10/18 19:06 Albuterol Sulfate (Albuterol 2.5mg/3ml Neb Ud) 2.5 mg HHN PRN PRN PRN Reason: WHEEZING Stop: 05/11/18 08:34 Albuterol/Ipratropium (Duoneb Neb) 3 ml HHN Q4HRT [facility]; Protocol Stop: 05/09/18 22:59 Last Admin: 03/14/18 10:00 Dose: 3 ml Ascorbic Acid (Vitamin C) 500 mg GT DAILY [facility] Stop: 05/11/18 08:59 Last Admin: 03/14/18 09:25 Dose: 500 mg Budesonide (Pulmicort) 0.5 mg HHN BID [facility] Stop: 05/11/18 08:59 Last Admin: 03/14/18 07:25 Dose: 0.5 mg Epoetin Teddy (Epogen) 10,000 units SUBQ MWF@1600 [facility] Stop: 05/11/18 15:59 Last Admin: 03/14/18 15:26 Dose: 10,000 units Ferrous Sulfate (Iron) 300 mg GT Q8HR [facility] Stop: 05/11/18 12:59 Last Admin: 03/14/18 14:00 Dose: 300 mg Furosemide (Lasix) 20 mg IVP DAILY [facility] Stop: 05/14/18 08:59 Heparin Sodium (Porcine) (Heparin) 5,000 units SUBQ Q12HR [facility] Stop: 05/10/18 20:59 Last Admin: 03/14/18 09:26 Dose: 5,000 units Vancomycin HCl 0.75 gm/ Sodium (Chloride) 250 mls @ 165 mls/hr IV Q24H [facility] Stop: 05/10/18 08:59 Last Infusion: 03/14/18 11:50 Dose: Infused Dextrose/Sodium Chloride (D5-0.45ns) 1,000 mls @ 50 mls/hr IV .Q20H [facility] Stop: 05/11/18 14:00 Last Admin: 03/14/18 05:22 Dose: 50 mls/hr Doxycycline Hyclate 100 mg/ (Sodium Chloride) 100 mls @ 100 mls/hr IV Q12H [facility] Stop: 05/12/18 20:59 Last Infusion: 03/14/18 10:25 Dose: Infused Insulin Aspart (Novolog Insulin Sliding Scale) 0 units SUBQ Q6HR [facility]; Protocol Stop: 05/10/18 00:00 Last Admin: 03/14/18 19:33 Dose: 4 units Ipratropium [place] (Atrovent Neb 0.5mg/2.5ml) 0.5 mg HHN PRN PRN PRN Reason: Wheezing Stop: 05/10/18 19:06 Last Admin: 03/11/18 20:47 Dose: 0.5 mg Lactobacillus Rhamnosus (Culturelle 15b) 1 each GT DAILY [facility] Stop: 05/11/18 08:59 Last Admin: 03/14/18 09:25 Dose: 1 each Levetiracetam (Keppra) 250 mg GT Q12H [facility] Stop: 05/11/18 08:59 Last Admin: 03/14/18 09:25 Dose: 250 mg Lorazepam (Ativan) 0.5 mg GT Q6HR PRN; Protocol PRN Reason: Anxiety Stop: 05/10/18 19:06 Miscellaneous (Vancomycin Iv Per Pharmacy) 1 ea PRN PRN PRN Reason: PROTOCOL Stop: 05/09/18 21:52 Miscellaneous (Vte Chemical Prophylaxis Screen/Icu Transfer) 1 ea PRN PRN PRN Reason: PROTOCOL Stop: 05/10/18 15:57 Miscellaneous (Probiotic Screen) 1 ea PRN PRN PRN Reason: PROTOCOL Stop: 05/12/18 15:29 Mupirocin (Bactroban Oint) 1 appl NS BID [facility] Stop: 03/18/18 17:01 Last Admin: 03/14/18 09:35 Dose: 1 appl Pantoprazole Sodium (Protonix) 40 mg IVP DAILY [facility] Stop: 05/11/18 08:59 Last Admin: 03/14/18 09:26 Dose: 40 mg Potassium Chloride (Klor-Con) 10 meq PO DAILY [facility] Stop: 05/11/18 10:59 Last Admin: 03/14/18 09:25 Dose: 10 meq General: no acute distress, well developed, well nourished HEENT: atraumatic, normocephalic, PERRLA, EOMI Neck: supple, no thyromegaly Cardiovascular: S1S2, regular Lungs: clear to auscultation bilaterally, clear to percussion Abdomen: soft, no tender, no distended, no mass Extremities: no cyanosis, no clubbing, no edema Neurological: awake, alert, oriented Skin: intact - Procedures Procedures: Procedures Procedure Code Date EXCISION OF STOMACH, ENDO, DIAGN [id number] 02/09/17 INSERTION OF INFUSION DEV INTO SUP VENA CAVA, PERC APPROACH 27SK00L 02/09/17 RESPIRATORY VENTILATION, 24-96 CONSECUTIVE HOURS [id number] 03/10/18 TRANSFUSE NONAUT RED BLOOD CELLS IN PERIPH VEIN, PERC 72449B0 02/09/17 Infectious Disease Assmt/Plan - Assessment Assessment: 1. Abdominal wall cellulitis and G tube malfunction 2. Down's Syndrome. 3. VDRF. 4. Mental retardation. 5. VRE, ESBL Klebsiella, Providencia, infection. - Plan Plan: Change antibiotics to tygacil and amikacin. Nutritional Asmnt/Malnutr-PDOC - Dietary Evaluation Malnutrition Findings (Please click <Entered> for more info): Nutritional Asmnt/Malnutrition Start: 03/12/18 14: 11 Text: Status: Complete Freq: Protocol: Document 03/12/18 14:13 CESARIOG (Rec: 03/12/18 15:07 LCANOOPG [email or web address]) Nutritional Asmnt/Malnutrition Patient General Information Nutritional Screening High Risk Consult Diagnosis fever, cellulitis of abdominal wall Pertinent Medical Hx/Surgical Hx Dm, DVT/PE, dementia, down syndrome, resp failure, PEG/ GTube, chronic trach Subjective Information Pt seen resting in bed at time of visit, non-verbal, on vent via trach. 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 Current Diet Order/ Nutrition Support NPO Pertinent Medications vit C, D5-0.45ns, colace, iron , lasix, novolog, novolin, culturelle, levaquin, levothyroxine, protonix, kcl, vancomycin Pertinent Labs 03/12 glucose 232, POC 225-252 03/11 Na 135, BUN 35, Cr 1.3, Glucose 154, POC 166-247 Nutritional Hx/Data Height 1.42 m Height (Calculated Centimeters) 142.2 Current Weight (lbs) 71.214 kg Weight (Calculated Kilograms) 71.2 Weight (Calculated Grams) 19450.0 [place] Body Weight 92 Body Mass Index (BMI) 35.2 Weight Status Obese GI Symptoms Last BM 03/11 Skin Integrity/Comment: rash to abdomen, scar to face, pressure area reddened to buttocks Estimated Nutritional Goals BEE in Kcals: Adj wt of IBW Calories/Kcals/Kg 27-32 adj wt 49kg Kcals Calculated 7023-7830 Protein: Adj wt of IBW Protein g/k.2-1.4 Protein Calculated 59-68 Fluid: ml 1323-1568ml (1ml/kcal) Nutritional Problem 2. Problem Problem inadequate energy intake Etiology GI dysfunction Signs/Symptoms: TF not initiated 1. Problem Problem altered nutrition related labs Etiology hyperglycemia Signs/Symptoms: glucose 232, POC 225-252 on Malnutrition Alert Is there a minimum of two criteria No selected? Query Text:Check all the applicable criteria. A minimum of two criteria are recommended for diagnosis of either severe or non-severe malnutrition. Malnutrition Related to Morbid Obesity Malnutrition related to morbid obesity No Intervention/Recommendation Comments 1. Monitor NPO status. 2. When medically appropriate, initiate TF with Glucerna 1.2 at 20ml/hr and increarse 10ml /hr q6hr to goal rate of 50ml/ hr continuous. This will provide 1440kcal, 72g protein and 96ml free water, meeting 100% of nutritional needs. 3. Monitor GI function, wt, labs and skin integrity 3. F/U as high risk in 2-3 days, 1/2-1/3 Expected Outcomes/Goals Expected Outcomes/Goals 1. Nutrition support initiated 2. Wt stability, skin to remain intact, labs to approach WNL.
[2018-03-14] MEDS ORDERED: Amikacin 250 mg in D5W 100mL IV ONE (21:00)
[2018-03-14] MEDS ORDERED: Amikacin 250 mg/mL 2mL Vial IV ONE (21:40)
[2018-03-15] MEDS: D5-0.45NS 1,000 ML IV SCH ×2 (02:04→18:34)
[2018-03-15] MEDS: Albuterol/Ipratropium Neb 3 ML AERS HHN SCH ×6 (03:36→22:37)
[2018-03-15] MEDS: Ferrous Sulfate 300 MG/5 ML UDC GT SCH ×3 (04:49→20:44)
[2018-03-15] MEDS: INSULIN ASPART SLIDING SCALE 100 UNITS/ML UNIT SUBQ SCH ×3 (05:11→17:32)
[2018-03-15] MEDS: Budesonide 0.5 Mg/2 mL Ud HHN SCH ×2 (07:27→18:54)
[2018-03-15 07:47] LABS: % EOSINOPHILS 5.6 % (0.0-5.0); % LYMPHOCYTES 19.4 % (20.0-50.0); % MONOCYTES 11.3 % (2.0-10.0); % NEUTROPHILS 62.7 % (40.0-80.0); BASOPHILE ABSOLUTE 0.1 Th/cumm (0-0.2); EOSINOPHILE ABSOLUTE 0.3 Th/cmm (0.1-0.4); HEMATOCRIT 30.1 % (41.0-60); HEMOGLOBIN 9.9 gm/dL (12-16); LYMPHOCYTE ABSOLUTE 1.1 Th/cmm (1.5-3.0); MEAN CELL VOLUME 96.2 fl (81-100); MEAN CORPUSCULAR HEMOGLOBIN 31.7 pg (27.0-31.0); MEAN CORPUSCULAR HGB CONC 32.9 pg (28.0-36.0); MEAN PLATELET VOLUME 8.1 fl; MONOCYTE ABSOLUTE 0.6 Th/cmm (0.3-1.0); NEUTROPHILE ABSOLUTE 3.6 Th/cmm (1.8-8.0); PLATELET COUNT 251 Th/cmm (150-400); RED BLOOD COUNT 3.13 Mil/cmm (3.80-5.20); WHITE BLOOD COUNT 5.7 Th/cmm (4.8-10.8)
[2018-03-15 07:55] LABS: ALB/GLOB RATIO 0.8 (1.0-1.8); ANION GAP 12.2 (7.0-16.0); BILIRUBIN,TOTAL 0.5 mg/dL (0.3-1.0); CALCIUM SERUM 8.8 mg/dL (8.6-10.3); CARBON DIOXIDE 30.1 mEq/L (21.0-31.0); CREATININE - SERUM 1.3 mg/dL (0.6-1.2); GFR AFRICAN-AMERICAN 52.1 ml/min (>90); POTASSIUM SERUM 3.3 mEq/L (3.5-5.1); TOTAL PROTEIN,SERUM 6.8 gm/dL (6.0-8.3)
[2018-03-15] MEDS: Lactobacillus Rhamnosus GG 15 Billion CFU CAP.SPRINK GT SCH (08:14)
[2018-03-15] MEDS: Potassium Chloride 10 mEq ER Tab PO SCH (08:14)
[2018-03-15] MEDS: Levetiracetam 500 mg/5mL 5mL UDSyr *for ORAL USE ONLY GT SCH ×2 (08:14→20:32)
--- NOTE | 2018-03-15 08:35 | Diagnostic Imaging Report ---
CHEST X-RAY: AP view INDICATION: Shortness of breath COMPARISON: 03/13/2018 FINDINGS: Tracheostomy tube is stable. Persistent diffuse infiltrates are noted. Trace right effusion is noted. Heart size is mildly prominent. IMPRESSION: Persistent diffuse infiltrates. Clinical correlation recommended.
[2018-03-15] MEDS ORDERED: Potassium Chloride Elixir 20 mEq /15 mL UDC GT ONE (14:54)
--- NOTE | 2018-03-15 15:36 | General Progress Note ---
Subjective - Review of Systems Events since last encounter: g-tube, no leakage tolerating feeds, improving Objective - Results Result Diagrams: 03/16/18 04:05 03/16/18 04:05 Recent Labs: Laboratory Last Values WBC 5.7 Th/cmm (4.8-10.8) 03/15/18 07:15 RBC 3.13 Mil/cmm (3.80-5.20) L 03/15/18 07:15 Hgb 9.9 gm/dL (12-16) L 03/15/18 07:15 Hct 30.1 % (41.0-60) L 03/15/18 07:15 MCV 96.2 fl (81-100) 03/15/18 07:15 MCH 31.7 pg (27.0-31.0) H 03/15/18 07:15 MCHC Differential 32.9 pg (28.0-36.0) 03/15/18 07:15 RDW 17.0 % (11.5-20.0) 03/15/18 07:15 Plt Count 251 Th/cmm (150-400) 03/15/18 07:15 MPV 8.1 fl 03/15/18 07:15 Neutrophils % 62.7 % (40.0-80.0) 03/15/18 07:15 Band Neutrophils % 0 % (0-10) 03/14/18 04:05 Lymphocytes % 19.4 % (20.0-50.0) L 03/15/18 07:15 Monocytes % 11.3 % (2.0-10.0) H 03/15/18 07:15 Eosinophils % 5.6 % (0.0-5.0) H 03/15/18 07:15 Basophils % 1.0 % (0.0-2.0) 03/15/18 07:15 Neutrophils (Manual) 80 % (40-80) 03/14/18 04:05 Lymphocytes 7 % (20-50) L 03/14/18 04:05 Monocytes 9 % (2-10) 03/14/18 04:05 Eosinophils 4 % (0-5) 03/14/18 04:05 Basophils 0 % (0-3) 03/14/18 04:05 Specimen Source Arterial 03/12/18 17:02 Sample Site Right Radial 03/12/18 17:02 pH 7.45 (7.35-7.45) 03/12/18 17:02 pCO2 46.0 mmHg (35.0-45.0) H 03/12/18 17:02 pO2 483.0 mmHg (80.0-100.0) H 03/12/18 17:02 HCO3 30.5 mEq/L (20.0-26.0) H 03/12/18 17:02 Base Excess 7.0 mEq/L (-3.0-3.0) H 03/12/18 17:02 O2 Saturation 100.0 % (92.0-100.0) 03/12/18 17:02 Cristofer Test Positive 03/12/18 17:02 Vent Rate 14 03/12/18 17:02 Inspired O2 100 03/12/18 17:02 Tidal Volume 400 03/12/18 17:02 PEEP 7 03/12/18 17:02 Pressure (ins/psv/peep) NA 03/12/18 17:02 Critical Value SH 03/12/18 17:02 Sodium 138 mEq/L (136-145) 03/15/18 07:15 Potassium 3.3 mEq/L (3.5-5.1) L 03/15/18 07:15 Chloride 99 mEq/L (98-107) 03/15/18 07:15 Carbon Dioxide 30.1 mEq/L (21.0-31.0) 03/15/18 07:15 Anion Gap 12.2 (7.0-16.0) 03/15/18 07:15 BUN 18 mg/dL (7-25) 03/15/18 07:15 Creatinine 1.3 mg/dL (0.6-1.2) H 03/15/18 07:15 Est GFR ( Amer) 52.1 ml/min (>90) 03/15/18 07:15 Est GFR (Non-Af Amer) 43.0 ml/min 03/15/18 07:15 BUN/Creatinine Ratio 13.8 03/15/18 07:15 Glucose 234 mg/dL (70-105) H 03/15/18 07:15 POC Glucose 285 MG/DL (70 - 105) H 03/15/18 12:17 Whole Bld Lactic Acid 1.36 mmol/L (0.60-1.99) 03/10/18 17:15 Calcium 8.8 mg/dL (8.6-10.3) 03/15/18 07:15 Total Bilirubin 0.5 mg/dL (0.3-1.0) 03/15/18 07:15 AST 11 U/L (13-39) L 03/15/18 07:15 ALT 7 U/L (7-52) 03/15/18 07:15 Alkaline Phosphatase 85 U/L (34-104) 03/15/18 07:15 Total Protein 6.8 gm/dL (6.0-8.3) 03/15/18 07:15 Albumin 3.0 gm/dL (3.7-5.3) L 03/15/18 07:15 Globulin 3.8 gm/dL 03/15/18 07:15 Albumin/Globulin Ratio 0.8 (1.0-1.8) L 03/15/18 07:15 Vancomycin Trough 20.1 ug/mL (5-10) H 03/14/18 08:00 - Physical Exam Vitals and I&O: Vital Signs Temp 98.4 F 03/15/18 12:00 Pulse 82 03/15/18 14:44 Resp 16 03/15/18 14:00 BP 110/39 03/15/18 14:00 Pulse Ox 97 03/15/18 14:44 Intake & Output 03/14/18 03/15/18 03/15/18 18:59 06:59 18:59 Intake Total 350 1961 201.4 Output Total 1700 Balance 350 261 201.4 Weight (lbs) 69.201 kg Intake: Intake, IV Amount 350 1201 201.4 Amikacin 250 mg In 101 Dextrose 5% 100 ml @ 100 mls/hr IV ONCE ONE Rx#: [id number] Amikacin 350 mg In 101.4 Dextrose 5% 100 ml @ 100 mls/hr IV Q24HR [facility] Rx#: [id number] D5-0.45NS 1,000 ml @ 50 1000 mls/hr IV .Q20H [facility] Rx#: [id number] Doxycycline Hyclate 100 100 mg In Sodium Chloride 0.9 % 100 ml @ 100 mls/hr IV Q12H [facility] Rx#:[id number] Tigecycline 50 mg In 100 Sodium Chloride 0.9% 100 ml @ 100 mls/hr IV Q12H [facility] Rx#:[id number] Vancomycin HCl 0.75 gm In 250 Sodium Chloride 0.9% 250 ml @ 165 mls/hr IV Q24H [facility] Rx#:[id number] Tube Feeding 360 Other 400 Output: Urine 1700 Other: # Bowel Movements 1 Stool Characteristics Soft Soft Brown Liquid Brown Weight Source Bedscale Active Medications: Current Medications Acetaminophen (Tylenol 650mg/20.3ml Suspension) 650 mg GT Q6H PRN PRN Reason: Pain or Fever >101 Stop: 05/10/18 19:06 Acetaminophen/Hydrocodone Bitart ([place] 5mg/325mg) 1 tab GT Q6H PRN PRN Reason: Pain (Moderate) Stop: 05/10/18 19:06 Albuterol Sulfate (Albuterol 2.5mg/3ml Neb Ud) 2.5 mg HHN PRN PRN PRN Reason: WHEEZING Stop: 05/11/18 08:34 Albuterol/Ipratropium (Duoneb Neb) 3 ml HHN Q4HRT [facility]; Protocol Stop: 05/09/18 22:59 Last Admin: 03/15/18 14:44 Dose: 3 ml Ascorbic Acid (Vitamin C) 500 mg GT DAILY [facility] Stop: 05/11/18 08:59 Last Admin: 03/15/18 08:14 Dose: 500 mg Budesonide (Pulmicort) 0.5 mg HHN BID [facility] Stop: 05/11/18 08:59 Last Admin: 03/15/18 07:27 Dose: 0.5 mg Chlorhexidine Gluconate (Peridex) 15 ml MM 0800,2000 [facility] Stop: 05/14/18 19:59 Epoetin Teddy (Epogen) 10,000 units SUBQ MWF@1600 [facility] Stop: 05/11/18 15:59 Last Admin: 03/14/18 15:26 Dose: 10,000 units Ferrous Sulfate (Iron) 300 mg GT Q8HR [facility] Stop: 05/11/18 12:59 Last Admin: 03/15/18 12:20 Dose: 300 mg Furosemide (Lasix) 20 mg IVP DAILY [facility] Stop: 05/14/18 08:59 Last Admin: 03/15/18 08:15 Dose: 20 mg Heparin Sodium (Porcine) (Heparin) 5,000 units SUBQ Q12HR [facility] Stop: 05/10/18 20:59 Last Admin: 03/15/18 08:15 Dose: 5,000 units Dextrose/Sodium Chloride (D5-0.45ns) 1,000 mls @ 50 mls/hr IV .Q20H [facility] Stop: 05/11/18 14:00 Last Admin: 03/15/18 02:04 Dose: 50 mls/hr Tigecycline 50 mg/ Sodium (Chloride) 100 mls @ 100 mls/hr IV Q12H [facility] Stop: 05/14/18 08:59 Last Infusion: 03/15/18 10:28 Dose: Infused Amikacin Sulfate 350 mg/ (Dextrose) 101.4 mls @ 100 mls/hr IV Q24HR [facility] Stop: 05/14/18 09:59 Last Infusion: 03/15/18 11:28 Dose: Infused Insulin Aspart (Novolog Insulin Sliding Scale) 0 units SUBQ Q6HR [facility]; Protocol Stop: 05/10/18 00:00 Last Admin: 03/15/18 12:20 Dose: 6 units Ipratropium [place] (Atrovent Neb 0.5mg/2.5ml) 0.5 mg HHN PRN PRN PRN Reason: Wheezing Stop: 05/10/18 19:06 Last Admin: 03/11/18 20:47 Dose: 0.5 mg Lactobacillus Rhamnosus (Culturelle 15b) 1 each GT DAILY [facility] Stop: 05/11/18 08:59 Last Admin: 03/15/18 08:14 Dose: 1 each Levetiracetam (Keppra) 250 mg GT Q12H [facility] Stop: 05/11/18 08:59 Last Admin: 03/15/18 08:14 Dose: 250 mg Lorazepam (Ativan) 0.5 mg GT Q6HR [facility]; Protocol PRN Reason: Anxiety Stop: 05/10/18 19:06 Miscellaneous (Vte Chemical Prophylaxis Screen/Icu Transfer) 1 ea MC PRN PRN PRN Reason: PROTOCOL Stop: 05/10/18 15:57 Miscellaneous (Probiotic Screen) 1 ea PRN PRN PRN Reason: PROTOCOL Stop: 05/12/18 15:29 Miscellaneous (Amikacin Iv Per Pharmacy) 1 ea PRN PRN PRN Reason: PROTOCOL Stop: 05/13/18 19:48 Mupirocin (Bactroban Oint) 1 appl NS BID [facility] Stop: 03/18/18 17:01 Last Admin: 03/15/18 08:16 Dose: 1 appl Pantoprazole Sodium (Protonix) 40 mg IVP DAILY [facility] Stop: 05/11/18 08:59 Last Admin: 03/15/18 08:15 Dose: 40 mg Potassium Chloride (Klor-Con) 10 meq PO DAILY [facility] Stop: 05/11/18 10:59 Last Admin: 03/15/18 08:14 Dose: 10 meq General: Alert, No acute distress HEENT: Atraumatic, PERRLA, EOMI Neck: Supple, Other (TRACH) Cardiovascular: Regular rate Abdomen: Bowel sounds, Soft, Distended (MILD), Other (INTACT GT) - Procedures Procedures: Procedures Procedure Code Date EXCISION OF STOMACH, ENDO, DIAGN [id number] 02/09/17 INSERTION OF INFUSION DEV INTO SUP VENA CAVA, PERC APPROACH 55GA05H 02/09/17 RESPIRATORY VENTILATION, 24-96 CONSECUTIVE HOURS [id number] 03/10/18 TRANSFUSE NONAUT RED BLOOD CELLS IN PERIPH VEIN, PERC 95685S8 02/09/17 Assessment/Plan - Assessment Assessment: g-tube site cellulitis sepsis fever resp. failure s/p trach. s/p endoscopic gastrostomy h/o dvt h/o PE dementia down syndrome - Plan Plan: [facility] Nutritional Asmnt/Malnutr-PDOC - Dietary Evaluation Malnutrition Findings (Please click <Entered> for more info): Nutritional Asmnt/Malnutrition Start: 03/12/18 14: 11 Text: Status: Complete Freq: Protocol: Document 03/12/18 14:13 DA (Rec: 03/12/18 15:07 ANOOP [email or web address]) Nutritional Asmnt/Malnutrition Patient General Information Nutritional Screening High Risk Consult Diagnosis fever, cellulitis of abdominal wall Pertinent Medical Hx/Surgical Hx Dm, DVT/PE, dementia, down syndrome, resp failure, PEG/ GTube, chronic trach Subjective Information Pt seen resting in bed at time of visit, non-verbal, on vent via trach. 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 Current Diet Order/ Nutrition Support NPO Pertinent Medications vit C, D5-0.45ns, colace, iron , lasix, novolog, novolin, culturelle, levaquin, levothyroxine, protonix, kcl, vancomycin Pertinent Labs 03/12 glucose 232, POC 225-252 03/11 Na 135, BUN 35, Cr 1.3, Glucose 154, POC 166-247 Nutritional Hx/Data Height 1.42 m Height (Calculated Centimeters) 142.2 Current Weight (lbs) 71.214 kg Weight (Calculated Kilograms) 71.2 Weight (Calculated Grams) 81266.0 [place] Body Weight 92 Body Mass Index (BMI) 35.2 Weight Status Obese GI Symptoms Last BM 03/11 Skin Integrity/Comment: rash to abdomen, scar to face, pressure area reddened to buttocks Estimated Nutritional Goals BEE in Kcals: Adj wt of IBW Calories/Kcals/Kg 27-32 adj wt 49kg Kcals Calculated 3826-1046 Protein: Adj wt of IBW Protein g/k.2-1.4 Protein Calculated 59-68 Fluid: ml 1323-1568ml (1ml/kcal) Nutritional Problem 2. Problem Problem inadequate energy intake Etiology GI dysfunction Signs/Symptoms: TF not initiated 1. Problem Problem altered nutrition related labs Etiology hyperglycemia Signs/Symptoms: glucose 232, POC 225-252 on Malnutrition Alert Is there a minimum of two criteria No selected? Query Text:Check all the applicable criteria. A minimum of two criteria are recommended for diagnosis of either severe or non-severe malnutrition. Malnutrition Related to Morbid Obesity Malnutrition related to morbid obesity No Intervention/Recommendation Comments 1. Monitor NPO status. 2. When medically appropriate, initiate TF with Glucerna 1.2 at 20ml/hr and increarse 10ml /hr q6hr to goal rate of 50ml/ hr continuous. This will provide 1440kcal, 72g protein and 96ml free water, meeting 100% of nutritional needs. 3. Monitor GI function, wt, labs and skin integrity 3. F/U as high risk in 2-3 days, 1/2-1/3 Expected Outcomes/Goals Expected Outcomes/Goals 1. Nutrition support initiated 2. Wt stability, skin to remain intact, labs to approach WNL.
[2018-03-15] MEDS: Chlorhexidine Gluconate 0.12% 15mL Mouthwash MM SCH (20:33)
--- NOTE | 2018-03-15 22:44 | GI Progress Note ---
Subjective - Review of Systems Service Date: 03/15/18 Subjective: GI NOTE VIKASH GT FEEDS 20 ML/HR. NO LEAK. Objective - Results Result Diagrams: 03/15/18 07:15 03/15/18 07:15 Recent Labs: Laboratory Last Values WBC 5.7 Th/cmm (4.8-10.8) 03/15/18 07:15 RBC 3.13 Mil/cmm (3.80-5.20) L 03/15/18 07:15 Hgb 9.9 gm/dL (12-16) L 03/15/18 07:15 Hct 30.1 % (41.0-60) L 03/15/18 07:15 MCV 96.2 fl (81-100) 03/15/18 07:15 MCH 31.7 pg (27.0-31.0) H 03/15/18 07:15 MCHC Differential 32.9 pg (28.0-36.0) 03/15/18 07:15 RDW 17.0 % (11.5-20.0) 03/15/18 07:15 Plt Count 251 Th/cmm (150-400) 03/15/18 07:15 MPV 8.1 fl 03/15/18 07:15 Neutrophils % 62.7 % (40.0-80.0) 03/15/18 07:15 Band Neutrophils % 0 % (0-10) 03/14/18 04:05 Lymphocytes % 19.4 % (20.0-50.0) L 03/15/18 07:15 Monocytes % 11.3 % (2.0-10.0) H 03/15/18 07:15 Eosinophils % 5.6 % (0.0-5.0) H 03/15/18 07:15 Basophils % 1.0 % (0.0-2.0) 03/15/18 07:15 Neutrophils (Manual) 80 % (40-80) 03/14/18 04:05 Lymphocytes 7 % (20-50) L 03/14/18 04:05 Monocytes 9 % (2-10) 03/14/18 04:05 Eosinophils 4 % (0-5) 03/14/18 04:05 Basophils 0 % (0-3) 03/14/18 04:05 Specimen Source Arterial 03/12/18 17:02 Sample Site Right Radial 03/12/18 17:02 pH 7.45 (7.35-7.45) 03/12/18 17:02 pCO2 46.0 mmHg (35.0-45.0) H 03/12/18 17:02 pO2 483.0 mmHg (80.0-100.0) H 03/12/18 17:02 HCO3 30.5 mEq/L (20.0-26.0) H 03/12/18 17:02 Base Excess 7.0 mEq/L (-3.0-3.0) H 03/12/18 17:02 O2 Saturation 100.0 % (92.0-100.0) 03/12/18 17:02 Cristofer Test Positive 03/12/18 17:02 Vent Rate 14 03/12/18 17:02 Inspired O2 100 03/12/18 17:02 Tidal Volume 400 03/12/18 17:02 PEEP 7 03/12/18 17:02 Pressure (ins/psv/peep) NA 03/12/18 17:02 Critical Value SH 03/12/18 17:02 Sodium 138 mEq/L (136-145) 03/15/18 07:15 Potassium 3.3 mEq/L (3.5-5.1) L 03/15/18 07:15 Chloride 99 mEq/L (98-107) 03/15/18 07:15 Carbon Dioxide 30.1 mEq/L (21.0-31.0) 03/15/18 07:15 Anion Gap 12.2 (7.0-16.0) 03/15/18 07:15 BUN 18 mg/dL (7-25) 03/15/18 07:15 Creatinine 1.3 mg/dL (0.6-1.2) H 03/15/18 07:15 Est GFR ( Amer) 52.1 ml/min (>90) 03/15/18 07:15 Est GFR (Non-Af Amer) 43.0 ml/min 03/15/18 07:15 BUN/Creatinine Ratio 13.8 03/15/18 07:15 Glucose 234 mg/dL (70-105) H 03/15/18 07:15 POC Glucose 258 MG/DL (70 - 105) H 03/15/18 16:52 Whole Bld Lactic Acid 1.36 mmol/L (0.60-1.99) 03/10/18 17:15 Calcium 8.8 mg/dL (8.6-10.3) 03/15/18 07:15 Total Bilirubin 0.5 mg/dL (0.3-1.0) 03/15/18 07:15 AST 11 U/L (13-39) L 03/15/18 07:15 ALT 7 U/L (7-52) 03/15/18 07:15 Alkaline Phosphatase 85 U/L (34-104) 03/15/18 07:15 Total Protein 6.8 gm/dL (6.0-8.3) 03/15/18 07:15 Albumin 3.0 gm/dL (3.7-5.3) L 03/15/18 07:15 Globulin 3.8 gm/dL 03/15/18 07:15 Albumin/Globulin Ratio 0.8 (1.0-1.8) L 03/15/18 07:15 Vancomycin Trough 20.1 ug/mL (5-10) H 03/14/18 08:00 - Physical Exam Vitals and I&O: Vital Signs Temp 97.5 F 03/15/18 22:00 Pulse 80 03/15/18 22:38 Resp 25 03/15/18 22:00 BP 94/27 03/15/18 22:00 Pulse Ox 100 03/15/18 22:38 Intake & Output 03/15/18 03/15/18 03/16/18 06:59 18:59 06:59 Intake Total 1961 1466.4 100 Output Total 1700 1100 Balance 261 366.4 100 Weight (lbs) 69.201 kg 72.121 kg Intake: Intake, IV Amount 1201 1026.4 100 Amikacin 250 mg In 101 Dextrose 5% 100 ml @ 100 mls/hr IV ONCE ONE Rx#: [id number] Amikacin 350 mg In 101.4 Dextrose 5% 100 ml @ 100 mls/hr IV Q24HR [facility] Rx#: [id number] D5-0.45NS 1,000 ml @ 50 1000 825 mls/hr IV .Q20H [facility] Rx#: [id number] Tigecycline 50 mg In 100 100 Sodium Chloride 0.9% 100 ml @ 100 mls/hr IV Q12H [facility] Rx#:[id number] Tube Feeding 360 340 Other 400 100 Output: Urine 1700 1100 Other: # Bowel Movements 1 0 Stool Characteristics Soft Liquid Brown Weight Source Bedscale Bedscale Active Medications: Current Medications Acetaminophen (Tylenol 650mg/20.3ml Suspension) 650 mg GT Q6H PRN PRN Reason: Pain or Fever >101 Stop: 05/10/18 19:06 Acetaminophen/Hydrocodone Bitart ([place] 5mg/325mg) 1 tab GT Q6H PRN PRN Reason: Pain (Moderate) Stop: 05/10/18 19:06 Albuterol Sulfate (Albuterol 2.5mg/3ml Neb Ud) 2.5 mg HHN PRN PRN PRN Reason: WHEEZING Stop: 05/11/18 08:34 Albuterol/Ipratropium (Duoneb Neb) 3 ml HHN Q4HRT [facility]; Protocol Stop: 05/09/18 22:59 Last Admin: 03/15/18 22:37 Dose: 3 ml Ascorbic Acid (Vitamin C) 500 mg GT DAILY [facility] Stop: 05/11/18 08:59 Last Admin: 03/15/18 08:14 Dose: 500 mg Budesonide (Pulmicort) 0.5 mg HHN BID [facility] Stop: 05/11/18 08:59 Last Admin: 03/15/18 18:54 Dose: 0.5 mg Chlorhexidine Gluconate (Peridex) 15 ml MM 0800,2000 [facility] Stop: 05/14/18 19:59 Last Admin: 03/15/18 20:33 Dose: 15 ml Epoetin Teddy (Epogen) 10,000 units SUBQ MWF@1600 [facility] Stop: 05/11/18 15:59 Last Admin: 03/14/18 15:26 Dose: 10,000 units Ferrous Sulfate (Iron) 300 mg GT Q8HR [facility] Stop: 05/11/18 12:59 Last Admin: 03/15/18 20:44 Dose: 300 mg Furosemide (Lasix) 20 mg IVP DAILY [facility] Stop: 05/14/18 08:59 Last Admin: 03/15/18 08:15 Dose: 20 mg Heparin Sodium (Porcine) (Heparin) 5,000 units SUBQ Q12HR [facility] Stop: 05/10/18 20:59 Last Admin: 03/15/18 20:33 Dose: 5,000 units Dextrose/Sodium Chloride (D5-0.45ns) 1,000 mls @ 50 mls/hr IV .Q20H [facility] Stop: 05/11/18 14:00 Last Admin: 03/15/18 18:34 Dose: 50 mls/hr Tigecycline 50 mg/ Sodium (Chloride) 100 mls @ 100 mls/hr IV Q12H [facility] Stop: 05/14/18 08:59 Last Infusion: 03/15/18 21:35 Dose: Infused Amikacin Sulfate 350 mg/ (Dextrose) 101.4 mls @ 100 mls/hr IV Q24HR [facility] Stop: 05/14/18 09:59 Last Infusion: 03/15/18 11:28 Dose: Infused Insulin Aspart (Novolog Insulin Sliding Scale) 0 units SUBQ Q6HR [facility]; Protocol Stop: 05/10/18 00:00 Last Admin: 03/15/18 17:32 Dose: 6 units Ipratropium [place] (Atrovent Neb 0.5mg/2.5ml) 0.5 mg HHN PRN PRN PRN Reason: Wheezing Stop: 05/10/18 19:06 Last Admin: 03/11/18 20:47 Dose: 0.5 mg Lactobacillus Rhamnosus (Culturelle 15b) 1 each GT DAILY [facility] Stop: 05/11/18 08:59 Last Admin: 03/15/18 08:14 Dose: 1 each Levetiracetam (Keppra) 250 mg GT Q12H [facility] Stop: 05/11/18 08:59 Last Admin: 03/15/18 20:32 Dose: 250 mg Lorazepam (Ativan) 0.5 mg GT Q6HR PR[facility]; Protocol PRN Reason: Anxiety Stop: 05/10/18 19:06 Miscellaneous (Vte Chemical Prophylaxis Screen/Icu Transfer) 1 ea MC PRN PRN PRN Reason: PROTOCOL Stop: 05/10/18 15:57 Miscellaneous (Probiotic Screen) 1 ea MC PRN PRN PRN Reason: PROTOCOL Stop: 05/12/18 15:29 Miscellaneous (Amikacin Iv Per Pharmacy) 1 ea MC PRN PRN PRN Reason: PROTOCOL Stop: 05/13/18 19:48 Mupirocin (Bactroban Oint) 1 appl NS BID [facility] Stop: 03/18/18 17:01 Last Admin: 03/15/18 16:10 Dose: 1 appl Pantoprazole Sodium (Protonix) 40 mg IVP DAILY [facility] Stop: 05/11/18 08:59 Last Admin: 03/15/18 08:15 Dose: 40 mg Potassium Chloride (Klor-Con) 10 meq PO DAILY [facility] Stop: 05/11/18 10:59 Last Admin: 03/15/18 08:14 Dose: 10 meq General: No acute distress Neck: Supple, Other (TRACH/vent) Cardiovascular: Regular rate Abdomen: Bowel sounds, Soft, Distended (MILD), Other (INTACT GT) - Procedures Procedures: Procedures Procedure Code Date EXCISION OF STOMACH, ENDO, DIAGN [id number] 02/09/17 INSERTION OF INFUSION DEV INTO SUP VENA CAVA, PERC APPROACH [id number] 02/09/17 RESPIRATORY VENTILATION, 24-96 CONSECUTIVE HOURS [id number] 03/10/18 TRANSFUSE NONAUT RED BLOOD CELLS IN PERIPH VEIN, PERC 90004H8 02/09/17 Assessment/Plan - Assessment Assessment: IMPRESSION: 1. G tube site cellulitis 2. 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 3. VDRF - trach. 4. Mild abd distension. RECS: -continue tube feed advancement slowly as tolerated. -s/p overinflation of GT internal balloon to try and prevent leakage -wound care.
[2018-03-16] MEDS: INSULIN ASPART SLIDING SCALE 100 UNITS/ML UNIT SUBQ SCH ×5 (00:13→23:28)
[2018-03-16] MEDS: Albuterol/Ipratropium Neb 3 ML AERS HHN SCH ×6 (02:49→22:25)
[2018-03-16] MEDS: Ferrous Sulfate 300 MG/5 ML UDC GT SCH ×3 (04:53→20:46)
[2018-03-16 05:10] LABS: % BASOPHILS 0.8 % (0.0-2.0); % EOSINOPHILS 6.3 % (0.0-5.0); % LYMPHOCYTES 17.4 % (20.0-50.0); % MONOCYTES 14.7 % (2.0-10.0); % NEUTROPHILS 60.8 % (40.0-80.0); BASOPHILE ABSOLUTE 0.1 Th/cumm (0-0.2); EOSINOPHILE ABSOLUTE 0.4 Th/cmm (0.1-0.4); HEMATOCRIT 28.2 % (41.0-60); HEMOGLOBIN 9.3 gm/dL (12-16); LYMPHOCYTE ABSOLUTE 1.1 Th/cmm (1.5-3.0); MEAN CELL VOLUME 94.4 fl (81-100); MEAN CORPUSCULAR HEMOGLOBIN 31.1 pg (27.0-31.0); MEAN CORPUSCULAR HGB CONC 32.9 pg (28.0-36.0); MEAN PLATELET VOLUME 8.7 fl; PLATELET COUNT 229 Th/cmm (150-400); RED BLOOD COUNT 2.99 Mil/cmm (3.80-5.20); RED CELL DISTRIBUTION WIDTH 17.9 % (11.5-20.0); WHITE BLOOD COUNT 6.6 Th/cmm (4.8-10.8)
[2018-03-16 05:21] LABS: ALB/GLOB RATIO 0.7 (1.0-1.8); ALBUMIN 2.6 gm/dL (3.7-5.3); ANION GAP 13.6 (7.0-16.0); BILIRUBIN,TOTAL 0.4 mg/dL (0.3-1.0); CALCIUM SERUM 8.2 mg/dL (8.6-10.3); CARBON DIOXIDE 28.2 mEq/L (21.0-31.0); CREATININE - SERUM 1.3 mg/dL (0.6-1.2); GFR AFRICAN-AMERICAN 52.1 ml/min (>90); POTASSIUM SERUM 3.8 mEq/L (3.5-5.1); TOTAL PROTEIN,SERUM 6.2 gm/dL (6.0-8.3)
[2018-03-16] MEDS: Budesonide 0.5 Mg/2 mL Ud HHN SCH ×2 (06:40→18:40)
[2018-03-16] MEDS: Potassium Chloride 10 mEq ER Tab PO SCH (08:18)
[2018-03-16] MEDS: Lactobacillus Rhamnosus GG 15 Billion CFU CAP.SPRINK GT SCH (08:18)
[2018-03-16] MEDS: Levetiracetam 500 mg/5mL 5mL UDSyr *for ORAL USE ONLY GT SCH ×2 (08:19→20:47)
[2018-03-16] MEDS: Chlorhexidine Gluconate 0.12% 15mL Mouthwash MM SCH ×2 (08:45→20:30)
[2018-03-16] MEDS ORDERED: D5-0.45NS 1,000 ML IV SCH (15:18)
[2018-03-16] MEDS: Epoetin Alfa 20000 Units/mL Vial SUBQ SCH (15:20)
--- NOTE | 2018-03-16 21:50 | GI Progress Note ---
Subjective - Review of Systems Service Date: 03/16/18 Subjective: GI NOTE VIKASH GT FEEDS 30 ML/HR. NO LEAK. Objective - Results Result Diagrams: 03/16/18 04:05 03/16/18 04:05 Recent Labs: Laboratory Last Values WBC 6.6 Th/cmm (4.8-10.8) 03/16/18 04:05 RBC 2.99 Mil/cmm (3.80-5.20) L 03/16/18 04:05 Hgb 9.3 gm/dL (12-16) L 03/16/18 04:05 Hct 28.2 % (41.0-60) L 03/16/18 04:05 MCV 94.4 fl (81-100) 03/16/18 04:05 MCH 31.1 pg (27.0-31.0) H 03/16/18 04:05 MCHC Differential 32.9 pg (28.0-36.0) 03/16/18 04:05 RDW 17.9 % (11.5-20.0) 03/16/18 04:05 Plt Count 229 Th/cmm (150-400) 03/16/18 04:05 MPV 8.7 fl 03/16/18 04:05 Neutrophils % 60.8 % (40.0-80.0) 03/16/18 04:05 Band Neutrophils % 0 % (0-10) 03/14/18 04:05 Lymphocytes % 17.4 % (20.0-50.0) L 03/16/18 04:05 Monocytes % 14.7 % (2.0-10.0) H 03/16/18 04:05 Eosinophils % 6.3 % (0.0-5.0) H 03/16/18 04:05 Basophils % 0.8 % (0.0-2.0) 03/16/18 04:05 Neutrophils (Manual) 80 % (40-80) 03/14/18 04:05 Lymphocytes 7 % (20-50) L 03/14/18 04:05 Monocytes 9 % (2-10) 03/14/18 04:05 Eosinophils 4 % (0-5) 03/14/18 04:05 Basophils 0 % (0-3) 03/14/18 04:05 Specimen Source Arterial 03/12/18 17:02 Sample Site Right Radial 03/12/18 17:02 pH 7.45 (7.35-7.45) 03/12/18 17:02 pCO2 46.0 mmHg (35.0-45.0) H 03/12/18 17:02 pO2 483.0 mmHg (80.0-100.0) H 03/12/18 17:02 HCO3 30.5 mEq/L (20.0-26.0) H 03/12/18 17:02 Base Excess 7.0 mEq/L (-3.0-3.0) H 03/12/18 17:02 O2 Saturation 100.0 % (92.0-100.0) 03/12/18 17:02 Cirstofer Test Positive 03/12/18 17:02 Vent Rate 14 03/12/18 17:02 Inspired O2 100 03/12/18 17:02 Tidal Volume 400 03/12/18 17:02 PEEP 7 03/12/18 17:02 Pressure (ins/psv/peep) NA 03/12/18 17:02 Critical Value SH 03/12/18 17:02 Sodium 139 mEq/L (136-145) 03/16/18 04:05 Potassium 3.8 mEq/L (3.5-5.1) 03/16/18 04:05 Chloride 101 mEq/L (98-107) 03/16/18 04:05 Carbon Dioxide 28.2 mEq/L (21.0-31.0) 03/16/18 04:05 Anion Gap 13.6 (7.0-16.0) 03/16/18 04:05 BUN 31 mg/dL (7-25) H 03/16/18 04:05 Creatinine 1.3 mg/dL (0.6-1.2) H 03/16/18 04:05 Est GFR ( Amer) 52.1 ml/min (>90) 03/16/18 04:05 Est GFR (Non-Af Amer) 43.0 ml/min 03/16/18 04:05 BUN/Creatinine Ratio 23.8 03/16/18 04:05 Glucose 262 mg/dL (70-105) H 03/16/18 04:05 POC Glucose 304 MG/DL (70 - 105) H 03/16/18 16:53 Whole Bld Lactic Acid 1.36 mmol/L (0.60-1.99) 03/10/18 17:15 Calcium 8.2 mg/dL (8.6-10.3) L 03/16/18 04:05 Total Bilirubin 0.4 mg/dL (0.3-1.0) 03/16/18 04:05 AST 10 U/L (13-39) L 03/16/18 04:05 ALT 6 U/L (7-52) L 03/16/18 04:05 Alkaline Phosphatase 78 U/L (34-104) 03/16/18 04:05 Total Protein 6.2 gm/dL (6.0-8.3) 03/16/18 04:05 Albumin 2.6 gm/dL (3.7-5.3) L 03/16/18 04:05 Globulin 3.6 gm/dL 03/16/18 04:05 Albumin/Globulin Ratio 0.7 (1.0-1.8) L 03/16/18 04:05 Vancomycin Trough 20.1 ug/mL (5-10) H 03/14/18 08:00 - Physical Exam Vitals and I&O: Vital Signs Temp 97.5 F 03/16/18 20:01 Pulse 83 03/16/18 20:55 Resp 16 03/16/18 20:01 BP 122/46 03/16/18 20:01 Pulse Ox 99 03/16/18 20:55 Intake & Output 03/16/18 03/16/18 03/17/18 06:59 18:59 06:59 Intake Total 760 701.4 Output Total 700 1350 Balance 60 -648.6 Weight (lbs) 71.469 kg 72.575 kg Intake: Intake, IV Amount 100 101.4 Amikacin 350 mg In 101.4 Dextrose 5% 100 ml @ 100 mls/hr IV Q24HR [facility] Rx#: [id number] Tigecycline 50 mg In 100 Sodium Chloride 0.9% 100 ml @ 100 mls/hr IV Q12H [facility] Rx#:[id number] Tube Feeding 410 480 Other 250 120 Output: Urine 700 1350 Other: # Bowel Movements 1 1 Stool Characteristics Soft Soft Liquid Liquid Brown Brown Weight Source Bedscale Bedscale Active Medications: Current Medications Acetaminophen (Tylenol 650mg/20.3ml Suspension) 650 mg GT Q6H PRN PRN Reason: Pain or Fever >101 Stop: 05/10/18 19:06 Acetaminophen/Hydrocodone Bitart ([place] 5mg/325mg) 1 tab GT Q6H PRN PRN Reason: Pain (Moderate) Stop: 05/10/18 19:06 Albuterol Sulfate (Albuterol 2.5mg/3ml Neb Ud) 2.5 mg HHN PRN PRN PRN Reason: WHEEZING Stop: 05/11/18 08:34 Albuterol/Ipratropium (Duoneb Neb) 3 ml HHN Q4HRT [facility]; Protocol Stop: 05/09/18 22:59 Last Admin: 03/16/18 18:40 Dose: 3 ml Ascorbic Acid (Vitamin C) 500 mg GT DAILY [facility] Stop: 05/11/18 08:59 Last Admin: 03/16/18 08:18 Dose: 500 mg Budesonide (Pulmicort) 0.5 mg HHN BID [facility] Stop: 05/11/18 08:59 Last Admin: 03/16/18 18:40 Dose: 0.5 mg Chlorhexidine Gluconate (Peridex) 15 ml MM 0800,2000 [facility] Stop: 05/14/18 19:59 Last Admin: 03/16/18 08:45 Dose: 15 ml Epoetin Teddy (Epogen) 10,000 units SUBQ MWF@1600 [facility] Stop: 05/11/18 15:59 Last Admin: 03/16/18 15:20 Dose: 10,000 units Ferrous Sulfate (Iron) 300 mg GT Q8HR [facility] Stop: 05/11/18 12:59 Last Admin: 03/16/18 20:46 Dose: 300 mg Furosemide (Lasix) 20 mg IVP DAILY [facility] Stop: 05/14/18 08:59 Last Admin: 03/16/18 08:20 Dose: 20 mg Heparin Sodium (Porcine) (Heparin) 5,000 units SUBQ Q12HR [facility] Stop: 05/10/18 20:59 Last Admin: 03/16/18 20:47 Dose: 5,000 units Tigecycline 50 mg/ Sodium (Chloride) 100 mls @ 100 mls/hr IV Q12H [facility] Stop: 05/14/18 08:59 Last Admin: 03/16/18 20:30 Dose: 100 mls/hr Amikacin Sulfate 350 mg/ (Dextrose) 101.4 mls @ 100 mls/hr IV Q24HR [facility] Stop: 05/14/18 09:59 Last Infusion: 03/16/18 10:45 Dose: Infused Dextrose/Sodium Chloride (D5-0.45ns) 1,000 mls @ 30 mls/hr IV .Q24H [facility] Stop: 05/15/18 15:17 Last Admin: 03/16/18 16:02 Dose: 30 mls/hr Insulin Aspart (Novolog Insulin Sliding Scale) 0 units SUBQ Q6HR [facility]; Protocol Stop: 05/10/18 00:00 Last Admin: 03/16/18 17:01 Dose: 8 units Ipratropium [place] (Atrovent Neb 0.5mg/2.5ml) 0.5 mg HHN PRN PRN PRN Reason: Wheezing Stop: 05/10/18 19:06 Last Admin: 03/11/18 20:47 Dose: 0.5 mg Lactobacillus Rhamnosus (Culturelle 15b) 1 each GT DAILY [facility] Stop: 05/11/18 08:59 Last Admin: 03/16/18 08:18 Dose: 1 each Levetiracetam (Keppra) 250 mg GT Q12H [facility] Stop: 05/11/18 08:59 Last Admin: 03/16/18 20:47 Dose: 250 mg Lorazepam (Ativan) 0.5 mg GT Q6HR [facility]; Protocol PRN Reason: Anxiety Stop: 05/10/18 19:06 Miscellaneous (Vte Chemical Prophylaxis Screen/Icu Transfer) 1 ea PRN PRN PRN Reason: PROTOCOL Stop: 05/10/18 15:57 Miscellaneous (Probiotic Screen) 1 ea PRN PRN PRN Reason: PROTOCOL Stop: 05/12/18 15:29 Miscellaneous (Amikacin Iv Per Pharmacy) 1 ea PRN PRN PRN Reason: PROTOCOL Stop: 05/13/18 19:48 Mupirocin (Bactroban Oint) 1 appl NS BID [facility] Stop: 03/18/18 17:01 Last Admin: 03/16/18 16:02 Dose: 1 appl Pantoprazole Sodium (Protonix) 40 mg IVP DAILY [facility] Stop: 05/11/18 08:59 Last Admin: 03/16/18 08:20 Dose: 40 mg Potassium Chloride (Klor-Con) 10 meq PO DAILY [facility] Stop: 05/11/18 10:59 Last Admin: 03/16/18 08:18 Dose: 10 meq General: Alert, No acute distress HEENT: Atraumatic Neck: Supple, Other (TRACH) Cardiovascular: Regular rate Abdomen: Bowel sounds, Soft, Distended (MILD), Other (INTACT GT) - Procedures Procedures: Procedures Procedure Code Date EXCISION OF STOMACH, ENDO, DIAGN [id number] 02/09/17 INSERTION OF INFUSION DEV INTO SUP VENA CAVA, PERC APPROACH [id number] 02/09/17 RESPIRATORY VENTILATION, 24-96 CONSECUTIVE HOURS [id number] 03/10/18 TRANSFUSE NONAUT RED BLOOD CELLS IN PERIPH VEIN, PERC 67282X1 02/09/17 Assessment/Plan - Assessment Assessment: IMPRESSION: 1. G tube site cellulitis 2. 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 3. VDRF - trach. 4. Mild abd distension. RECS: -continue tube feed advancement slowly as tolerated. -s/p overinflation of GT internal balloon to try and prevent leakage -wound care.
[2018-03-17] MEDS: Albuterol/Ipratropium Neb 3 ML AERS HHN SCH ×4 (02:26→14:54)
[2018-03-17] MEDS: Ferrous Sulfate 300 MG/5 ML UDC GT SCH ×2 (05:25→12:27)
[2018-03-17] MEDS: INSULIN ASPART SLIDING SCALE 100 UNITS/ML UNIT SUBQ SCH ×2 (05:48→12:27)
[2018-03-17 06:48] LABS: % BASOPHILS 1.1 % (0.0-2.0); % EOSINOPHILS 5.3 % (0.0-5.0); % LYMPHOCYTES 19.6 % (20.0-50.0); % MONOCYTES 11.6 % (2.0-10.0); % NEUTROPHILS 62.4 % (40.0-80.0); BASOPHILE ABSOLUTE 0.1 Th/cumm (0-0.2); EOSINOPHILE ABSOLUTE 0.3 Th/cmm (0.1-0.4); HEMATOCRIT 31.5 % (41.0-60); HEMOGLOBIN 10.3 gm/dL (12-16); LYMPHOCYTE ABSOLUTE 1.1 Th/cmm (1.5-3.0); MEAN CELL VOLUME 95.9 fl (81-100); MEAN CORPUSCULAR HEMOGLOBIN 31.4 pg (27.0-31.0); MEAN CORPUSCULAR HGB CONC 32.8 pg (28.0-36.0); MEAN PLATELET VOLUME 8.7 fl; MONOCYTE ABSOLUTE 0.7 Th/cmm (0.3-1.0); NEUTROPHILE ABSOLUTE 3.5 Th/cmm (1.8-8.0); PLATELET COUNT 232 Th/cmm (150-400); RED BLOOD COUNT 3.28 Mil/cmm (3.80-5.20); RED CELL DISTRIBUTION WIDTH 17.8 % (11.5-20.0); WHITE BLOOD COUNT 5.7 Th/cmm (4.8-10.8)
[2018-03-17 07:08] LABS: ALB/GLOB RATIO 0.8 (1.0-1.8); ALBUMIN 2.9 gm/dL (3.7-5.3); ANION GAP 14.5 (7.0-16.0); BILIRUBIN,TOTAL 0.6 mg/dL (0.3-1.0); CALCIUM SERUM 8.6 mg/dL (8.6-10.3); CARBON DIOXIDE 27.2 mEq/L (21.0-31.0); CREATININE - SERUM 1.2 mg/dL (0.6-1.2); GFR AFRICAN-AMERICAN 57.1 ml/min (>90); GFR NON AFRICAN-AMERICAN 47.2 ml/min; POTASSIUM SERUM 3.7 mEq/L (3.5-5.1); TOTAL PROTEIN,SERUM 6.7 gm/dL (6.0-8.3)
[2018-03-17] MEDS: Budesonide 0.5 Mg/2 mL Ud HHN SCH ×2 (07:51→09:00)
--- NOTE | 2018-03-17 08:01 | GI Progress Note ---
Subjective - Review of Systems Service Date: 03/17/18 Subjective: GI NOTE VIKASH GT FEEDS 50 ML/HR. NO LEAK. HAD BM X 2 YEST. Objective - Results Result Diagrams: 03/17/18 05:54 03/17/18 05:54 Recent Labs: Laboratory Last Values WBC 5.7 Th/cmm (4.8-10.8) 03/17/18 05:54 RBC 3.28 Mil/cmm (3.80-5.20) L 03/17/18 05:54 Hgb 10.3 gm/dL (12-16) L 03/17/18 05:54 Hct 31.5 % (41.0-60) L 03/17/18 05:54 MCV 95.9 fl (81-100) 03/17/18 05:54 MCH 31.4 pg (27.0-31.0) H 03/17/18 05:54 MCHC Differential 32.8 pg (28.0-36.0) 03/17/18 05:54 RDW 17.8 % (11.5-20.0) 03/17/18 05:54 Plt Count 232 Th/cmm (150-400) 03/17/18 05:54 MPV 8.7 fl 03/17/18 05:54 Neutrophils % 62.4 % (40.0-80.0) 03/17/18 05:54 Band Neutrophils % 0 % (0-10) 03/14/18 04:05 Lymphocytes % 19.6 % (20.0-50.0) L 03/17/18 05:54 Monocytes % 11.6 % (2.0-10.0) H 03/17/18 05:54 Eosinophils % 5.3 % (0.0-5.0) H 03/17/18 05:54 Basophils % 1.1 % (0.0-2.0) 03/17/18 05:54 Neutrophils (Manual) 80 % (40-80) 03/14/18 04:05 Lymphocytes 7 % (20-50) L 03/14/18 04:05 Monocytes 9 % (2-10) 03/14/18 04:05 Eosinophils 4 % (0-5) 03/14/18 04:05 Basophils 0 % (0-3) 03/14/18 04:05 Specimen Source Arterial 03/12/18 17:02 Sample Site Right Radial 03/12/18 17:02 pH 7.45 (7.35-7.45) 03/12/18 17:02 pCO2 46.0 mmHg (35.0-45.0) H 03/12/18 17:02 pO2 483.0 mmHg (80.0-100.0) H 03/12/18 17:02 HCO3 30.5 mEq/L (20.0-26.0) H 03/12/18 17:02 Base Excess 7.0 mEq/L (-3.0-3.0) H 03/12/18 17:02 O2 Saturation 100.0 % (92.0-100.0) 03/12/18 17:02 Cristofer Test Positive 03/12/18 17:02 Vent Rate 14 03/12/18 17:02 Inspired O2 100 03/12/18 17:02 Tidal Volume 400 03/12/18 17:02 PEEP 7 03/12/18 17:02 Pressure (ins/psv/peep) NA 03/12/18 17:02 Critical Value SH 03/12/18 17:02 Sodium 139 mEq/L (136-145) 03/17/18 05:54 Potassium 3.7 mEq/L (3.5-5.1) 03/17/18 05:54 Chloride 101 mEq/L (98-107) 03/17/18 05:54 Carbon Dioxide 27.2 mEq/L (21.0-31.0) 03/17/18 05:54 Anion Gap 14.5 (7.0-16.0) 03/17/18 05:54 BUN 35 mg/dL (7-25) H 03/17/18 05:54 Creatinine 1.2 mg/dL (0.6-1.2) 03/17/18 05:54 Est GFR ( Amer) 57.1 ml/min (>90) 03/17/18 05:54 Est GFR (Non-Af Amer) 47.2 ml/min 03/17/18 05:54 BUN/Creatinine Ratio 29.2 03/17/18 05:54 Glucose 296 mg/dL (70-105) H 03/17/18 05:54 POC Glucose 267 MG/DL (70 - 105) H 03/17/18 05:32 Whole Bld Lactic Acid 1.36 mmol/L (0.60-1.99) 03/10/18 17:15 Calcium 8.6 mg/dL (8.6-10.3) 03/17/18 05:54 Total Bilirubin 0.6 mg/dL (0.3-1.0) 03/17/18 05:54 AST 13 U/L (13-39) 03/17/18 05:54 ALT 9 U/L (7-52) 03/17/18 05:54 Alkaline Phosphatase 87 U/L (34-104) 03/17/18 05:54 Total Protein 6.7 gm/dL (6.0-8.3) 03/17/18 05:54 Albumin 2.9 gm/dL (3.7-5.3) L 03/17/18 05:54 Globulin 3.8 gm/dL 03/17/18 05:54 Albumin/Globulin Ratio 0.8 (1.0-1.8) L 03/17/18 05:54 Vancomycin Trough 20.1 ug/mL (5-10) H 03/14/18 08:00 - Physical Exam Vitals and I&O: Vital Signs Temp 97.5 F 03/17/18 07:24 Pulse 86 03/17/18 07:52 Resp 16 03/17/18 07:24 BP 122/46 03/17/18 07:24 Pulse Ox 100 03/17/18 07:52 Intake & Output 03/16/18 03/17/18 03/17/18 18:59 06:59 18:59 Intake Total 701.4 810 Output Total 1350 750 Balance -648.6 60 Weight (lbs) 72.575 kg 72.603 kg Intake: Intake, IV Amount 101.4 100 Amikacin 350 mg In 101.4 Dextrose 5% 100 ml @ 100 mls/hr IV Q24HR [facility] Rx#: [id number] Tigecycline 50 mg In 100 Sodium Chloride 0.9% 100 ml @ 100 mls/hr IV Q12H [facility] Rx#:[id number] Tube Feeding 480 410 Other 120 300 Output: Urine 1350 750 Other: # Bowel Movements 1 2 Stool Characteristics Soft Soft Liquid Liquid Brown Brown Weight Source Bedscale Bedscale Active Medications: Current Medications Acetaminophen (Tylenol 650mg/20.3ml Suspension) 650 mg GT Q6H PRN PRN Reason: Pain or Fever >101 Stop: 05/10/18 19:06 Acetaminophen/Hydrocodone Bitart ([place] 5mg/325mg) 1 tab GT Q6H PRN PRN Reason: Pain (Moderate) Stop: 05/10/18 19:06 Albuterol Sulfate (Albuterol 2.5mg/3ml Neb Ud) 2.5 mg HHN PRN PRN PRN Reason: WHEEZING Stop: 05/11/18 08:34 Albuterol/Ipratropium (Duoneb Neb) 3 ml HHN Q4HRT [facility]; Protocol Stop: 05/09/18 22:59 Last Admin: 03/17/18 07:36 Dose: 3 ml Ascorbic Acid (Vitamin C) 500 mg GT DAILY [facility] Stop: 05/11/18 08:59 Last Admin: 03/16/18 08:18 Dose: 500 mg Budesonide (Pulmicort) 0.5 mg HHN BID [facility] Stop: 05/11/18 08:59 Last Admin: 03/17/18 07:51 Dose: 0.5 mg Chlorhexidine Gluconate (Peridex) 15 ml MM 0800,1999 [facility] Stop: 05/14/18 19:59 Last Admin: 03/16/18 20:30 Dose: 15 ml Epoetin Teddy (Epogen) 10,000 units SUBQ MWF@1600 [facility] Stop: 05/11/18 15:59 Last Admin: 03/16/18 15:20 Dose: 10,000 units Ferrous Sulfate (Iron) 300 mg GT Q8HR [facility] Stop: 05/11/18 12:59 Last Admin: 03/17/18 05:25 Dose: 300 mg Furosemide (Lasix) 20 mg IVP DAILY [facility] Stop: 05/14/18 08:59 Last Admin: 03/16/18 08:20 Dose: 20 mg Heparin Sodium (Porcine) (Heparin) 5,000 units SUBQ Q12HR [facility] Stop: 05/10/18 20:59 Last Admin: 03/16/18 20:47 Dose: 5,000 units Tigecycline 50 mg/ Sodium (Chloride) 100 mls @ 100 mls/hr IV Q12H [facility] Stop: 05/14/18 08:59 Last Infusion: 03/16/18 21:30 Dose: Infused Amikacin Sulfate 350 mg/ (Dextrose) 101.4 mls @ 100 mls/hr IV Q24HR [facility] Stop: 05/14/18 09:59 Last Infusion: 03/16/18 10:45 Dose: Infused Dextrose/Sodium Chloride (D5-0.45ns) 1,000 mls @ 30 mls/hr IV .Q24H [facility] Stop: 05/15/18 15:17 Last Admin: 03/16/18 16:02 Dose: 30 mls/hr Insulin Aspart (Novolog Insulin Sliding Scale) 0 units SUBQ Q6HR [facility]; Protocol Stop: 05/10/18 00:00 Last Admin: 03/17/18 05:48 Dose: 6 units Ipratropium [place] (Atrovent Neb 0.5mg/2.5ml) 0.5 mg HHN PRN PRN PRN Reason: Wheezing Stop: 05/10/18 19:06 Last Admin: 03/11/18 20:47 Dose: 0.5 mg Lactobacillus Rhamnosus (Culturelle 15b) 1 each GT DAILY [facility] Stop: 05/11/18 08:59 Last Admin: 03/16/18 08:18 Dose: 1 each Levetiracetam (Keppra) 250 mg GT Q12H [facility] Stop: 05/11/18 08:59 Last Admin: 03/16/18 20:47 Dose: 250 mg Lorazepam (Ativan) 0.5 mg GT Q6HR PRN; Protocol PRN Reason: Anxiety Stop: 05/10/18 19:06 Miscellaneous (Vte Chemical Prophylaxis Screen/Icu Transfer) 1 ea PRN PRN PRN Reason: PROTOCOL Stop: 05/10/18 15:57 Miscellaneous (Probiotic Screen) 1 ea PRN PRN PRN Reason: PROTOCOL Stop: 05/12/18 15:29 Miscellaneous (Amikacin Iv Per Pharmacy) 1 ea PRN PRN PRN Reason: PROTOCOL Stop: 05/13/18 19:48 Mupirocin (Bactroban Oint) 1 appl NS BID [facility] Stop: 03/18/18 17:01 Last Admin: 03/16/18 16:02 Dose: 1 appl Pantoprazole Sodium (Protonix) 40 mg IVP DAILY [facility] Stop: 05/11/18 08:59 Last Admin: 03/16/18 08:20 Dose: 40 mg Potassium Chloride (Klor-Con) 10 meq PO DAILY [facility] Stop: 05/11/18 10:59 Last Admin: 03/16/18 08:18 Dose: 10 meq General: Alert, No acute distress HEENT: Atraumatic Neck: Supple, Other (TRACH) Cardiovascular: Regular rate Abdomen: Bowel sounds, Soft, Distended (MILD), Other (INTACT GT) - Procedures Procedures: Procedures Procedure Code Date EXCISION OF STOMACH, ENDO, DIAGN [id number] 02/09/17 INSERTION OF INFUSION DEV INTO SUP VENA CAVA, PERC APPROACH [id number] 02/09/17 RESPIRATORY VENTILATION, 24-96 CONSECUTIVE HOURS [id number] 03/10/18 TRANSFUSE NONAUT RED BLOOD CELLS IN PERIPH VEIN, PERC [id number] 02/09/17 Assessment/Plan - Assessment Assessment: IMPRESSION: 1. G tube site cellulitis 2. 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 3. VDRF - trach. 4. Mild abd distension. RECS: -continue tube feed infusion at goal rate as tolerated. -s/p overinflation of GT internal balloon to try and prevent leakage -wound care. Pending transfer to [facility]
[2018-03-17] MEDS: Chlorhexidine Gluconate 0.12% 15mL Mouthwash MM SCH (08:41)
[2018-03-17] MEDS: Levetiracetam 500 mg/5mL 5mL UDSyr *for ORAL USE ONLY GT SCH (08:42)
[2018-03-17] MEDS: Potassium Chloride 10 mEq ER Tab PO SCH (08:42)
[2018-03-17] MEDS: Lactobacillus Rhamnosus GG 15 Billion CFU CAP.SPRINK GT SCH (08:43)
--- NOTE | 2018-03-18 00:10 | Progress Notes ---
DATE: 03/17/2018 SUBJECTIVE: The patient was seen in her room. The patient is a poor historian due to medical condition. The patient still connected to ventilator and tolerating current setting. Otherwise, the patient appears to be in no acute distress. OBJECTIVE: VITAL SIGNS: Temperature 97.8, heart rate 77, blood pressure 117/88, respiration of 20 and 100% oxygen saturation. HEENT: Head is atraumatic and normocephalic. Eyes: Bilateral conjunctivae are clear. Bilateral pupils equal, round and reactive. NECK: Supple. No JVD. The patient has a tracheostomy. CARDIOVASCULAR: S1 and S2 without murmur, sinus rhythm on the monitor. PULMONARY: Fine scattered rhonchi noted. GASTROINTESTINAL: Soft and nontender without guarding. Positive bowel sounds. GENITOURINARY: The patient has a gastrostomy tube in place. MUSCULOSKELETAL: No clubbing. No cyanosis. Positive muscle weakness. ASSESSMENT: 1. G-tube site cellulitis. 2. Sepsis. 3. Ventilator dependent respiratory failure. 4. Status post tracheostomy. 5. Dysphagia. 6. Status post gastrostomy tube placement. 7. Down syndrome. PLAN: We will continue current antibiotics. Continue to provide pulmonary support. Will put the patient on aspiration precaution. The patient pending transfer to long-term acute care for antibiotic management. Treatment plans were discussed with the patient's nurse. Treatment plans were discussed with Dr. Aguilar. JOB# [id number]
== END 2018-03-17 15:15 | DRG 393 ==
LOC: ER 16:40 → ICU 18:53
PROVIDERS: ADMIT Internal Medicine; ATTEND Internal Medicine
PROC: 5A1955Z Respiratory Ventilation, Greater than 96 Consecutive Hours (ICD-10-PCS; principal; 2018-03-10)
DX: K94.22 Gastrostomy infection (principal); A41.9 Sepsis, unspecified organism; J18.9 Pneumonia, unspecified organism; L03.311 Cellulitis of abdominal wall; K31.6 Fistula of stomach and duodenum; J96.10 Chronic respiratory failure, unspecified whether with hypoxia or hypercapnia; Z99.11 Dependence on respirator [ventilator] status; Q90.9 Down syndrome, unspecified; R13.10 Dysphagia, unspecified; M81.0 Age-related osteoporosis without current pathological fracture; E11.9 Type 2 diabetes mellitus without complications; Y83.8 Other surgical procedures as the cause of abnormal reaction of the patient, or of later complication, without mention of misadventure at the time of the procedure; Y92.89 Other specified places as the place of occurrence of the external cause; D64.9 Anemia, unspecified; R14.0 Abdominal distension (gaseous); F03.90 Unspecified dementia, unspecified severity, without behavioral disturbance, psychotic disturbance, mood disturbance, and anxiety; Z86.718 Personal history of other venous thrombosis and embolism; Z79.4 Long term (current) use of insulin; Z88.8 Allergy status to other drugs, medicaments and biological substances
CPT/HCPCS: 36415-UA; 36600-90; 71045-TC; 74150-TC; 80048-TC; 80053-TC; 80150-TC; 80202-TC; 82803-TC; 82948-90; 83036-90; 83605; 85007-TC; 85025-TC; 87070; 87070-90; 90779; 94002; 94003; 94760; C9113; J0278; J0885; J1644; J1815; J1940; J1956; J3243; J3370; J7613; X6118; Z7610